=== PATIENT | male | born 1975 | race Caucasian/White ===

== ENCOUNTER → 2018-02-10 14:35 | Outpatient (CLI) | payer OTHER, SELFPAY ==
[2018-02-10 16:06] LABS: Erythrocyte Sedimentation Rate 19 mm/hr (0-15)
[2018-02-10 16:09] LABS: Hematocrit 40.3 % (40-54); Mean Corp Hgb Conc 34.7 g/gl (32-36); Mean Corpuscular Hgb 31.3 pg (27.0-32.0); Platelet Count 220 K/mm3 (150-450); RBC Distribution Width CV 12.3 % (11.6-14.6); RBC Distribution Width SD 40.2 fl (35.1-43.9); Red Blood Count 4.48 M/mm3 (4.6-6.2)
[2018-02-10 16:14] LABS: ALB/GLOB Ratio 0.9 RATIO (0.9-2.4); AST(SGOT) 27 U/L (15-37); Alanine Aminotransfer ALT/SGPT 34 U/L (16-61); Albumin, Serum 3.7 g/dL (3.2-5.0); Alkaline Phosphatase 53 U/L (45-117); Anion Gap 9 (5-15); BUN 11 mg/dL (7-18); BUN/Creat Ratio 12.4 RATIO (10-20); CRP 3.49 mg/L (0.0-3.0); Calcium,Total 8.5 mg/dL (8.5-10.1); Chloride 105 mmol/L (98-107); Creatinine, Serum 0.89 mg/dL (0.70-1.30); EST Glomerular Filtration Rate 101 mL/min (>60); Est Glom Filt Rate - Afr Amer 122 mL/min (>60); Globulin 3.9 g/dL (2.2-4.2); Glucose 97 mg/dL (74-106); Protein, Total 7.6 g/dL (6.4-8.2); Rheumatoid Factor < 10.0 IU/mL (<15); Sodium Level 142 mmol/L (136-145)
[2018-02-10 16:18] LABS: Vitamin D,25 Hydroxy 26.1 ng/mL (29.95-100.01)
[2018-02-10 16:22] LABS: Scan Indicated on CBC? Y/N NO
[2018-02-15 11:45] LABS: CCP IgG Antibodies 8 units (0-19)
[2018-02-15 11:59] LABS: ANTINUCLEAR ANTIBODIES DIRECT Negative (Negative)
== END ==
PROVIDERS: Family Provider Family Medicine; PCP Family Medicine; Visit Provider Family Medicine
DX: M25.50 Pain in unspecified joint (principal)
CPT/HCPCS: 36415; 80053; 82306; 85027; 85652; 86038; 86140; 86200; 86431

== ENCOUNTER 2020-10-02 09:40 | Outpatient (RCR) | payer OTHER, SELFPAY ==
[2016-03-14 10:02] VITALS: BMI 26.6
== END 2020-11-11 23:59 ==
LOC: IMMUN 09:40
PROVIDERS: PCP Family Medicine; Referring Provider Family Medicine; Visit Provider Family Medicine
DX: Z23 Encounter for immunization (principal)
CPT/HCPCS: 0001A; 91300

== ENCOUNTER → 2021-03-20 | Outpatient (CLI) | payer OTHER, SELFPAY | END | disposition home or self-care (01) | PROVIDERS: PCP Family Medicine; Referring Provider Family Medicine; Visit Provider Family Medicine | DX: Z20.822 Contact with and (suspected) exposure to COVID-19 (principal) | CPT/HCPCS: 87635; U0005; U0003 ==

== ENCOUNTER → 2022-04-02 | Outpatient (CLI) | payer OTHER, SELFPAY ==
[2022-04-02 12:14] LABS: Erythrocyte Sedimentation Rate 25 mm/hr (0-20)
[2022-04-02 12:17] LABS: Absolute Lymphocyte Count 1.67 X10^3/uL (0.83-4.51); Absolute Neutrophil Count 3.7 X10^3/uL (2.0-7.7); Basophil# 0.05 X10^3/uL; Basophil% 0.8 % (0-1); Eosinophil# 0.11 X10^3/uL; Eosinophils% 1.8 % (0-5); Hemoglobin 15.9 g/dL (13.0-16.5); Lymphocyte # 1.67 X10^3/ul (0.83-4.51); Lymphocyte % 27.2 % (19-41); Mean Corpuscular Hgb 32.5 pg (27.0-32.0); Mean Corpuscular Volume 87.9 fL (80-94); Mean Platelet Vol. 9.9 fl (6.2-12.0); Monocyte# 0.56 X10^3/uL; Monocyte% 9.1 % (0-10); NRBC Flagged by Analyzer 0 % (0-5); Neutrophil # 3.74 X10^3/uL (2.7-7.7); Neutrophil % 60.9 % (47-70); Platelet Count 259 K/mm3 (150-450); RBC Distribution Width CV 11.8 % (11.6-14.6); RBC Distribution Width SD 37.9 fl (35.1-43.9); Red Blood Count 4.89 M/mm3 (4.6-6.2); White Blood Count 6.1 K/mm3 (4.4-11.0)
[2022-04-02 12:36] LABS: Vitamin D,25 Hydroxy 38.6 ng/mL
[2022-04-02 12:53] LABS: AST(SGOT) 22 U/L (15-37); Alanine Aminotransfer ALT/SGPT 38 U/L (16-61); Albumin, Serum 3.8 g/dL (3.2-5.0); Alkaline Phosphatase 55 U/L (45-117); Anion Gap 4 (5-15); BUN 14 mg/dL (7-18); BUN/Creat Ratio 16.8 RATIO (10-20); CRP < 2.90 mg/L (0.0-3.0); Calcium,Total 8.8 mg/dL (8.5-10.1); Chloride 105 mmol/L (98-107); Creatinine, Serum 0.83 mg/dL (0.70-1.30); EST Glomerular Filtration Rate 107 mL/min (>60); Est Glom Filt Rate - Afr Amer 129 mL/min (>60); Ferritin 164 ng/mL (26-388); GGTP 23 U/L (15-85); Globulin 3.9 g/dL (2.2-4.2); Glucose 94 mg/dL (74-106); Iron 72 ug/dL (65-175); Potassium 4.4 mmol/L (3.5-5.1); Protein, Total 7.7 g/dL (6.4-8.2); Sodium Level 137 mmol/L (136-145); Thyroid Stim Hormone (TSH) 1.09 uIU/mL (0.358-3.74)
== END | disposition home or self-care (01) ==
LOC: MTLAB 10:36
PROVIDERS: PCP Family Medicine; Referring Provider Family Medicine; Visit Provider Family Medicine
DX: M35.2 Behcet's disease (principal); Z78.9 Other specified health status
CPT/HCPCS: 36415; 80053; 82306; 82728; 82977; 83540; 84443; 85025; 85652; 86140

== ENCOUNTER 2024-09-04 08:00 | Outpatient (RCR) | payer OTHER, SELFPAY | END 2024-09-04 19:00 | disposition home or self-care (01) | LOC: PT 08:00 | PROVIDERS: PCP Family Medicine; Referring Provider Family Medicine; Visit Provider Family Medicine | DX: G57.01 Lesion of sciatic nerve, right lower limb (principal) ==

== ENCOUNTER → 2024-10-03 | Outpatient (CLI) | payer OTHER, SELFPAY ==
--- NOTE | 2024-10-03 13:21 | RAD_ITS ---
PROCEDURE: HIP, UNI W/ PELVIS 2-3 VIEWS 10/03/2024 REASON FOR EXAM: PAIN IN L HIP, GLUTE TECHNIQUE: Three views left hip FINDINGS: Bones: No acute fracture. Joints: Normal alignment. Soft tissues: Soft tissues are unremarkable. Other: RAD/HIP, UNI W/ Pelvis 2-3 Views IMPRESSION: NEGATIVE SINGLE VIEW HIP Reading Location: [id number]
== END | disposition home or self-care (01) ==
LOC: MTRAD 13:18
PROVIDERS: PCP Family Medicine; Referring Provider Family Medicine; Visit Provider Family Medicine
DX: M25.552 Pain in left hip (principal)
CPT/HCPCS: 73502

== ENCOUNTER → 2024-11-28 | Outpatient (CLI) | payer OTHER, SELFPAY ==
--- NOTE | 2024-11-28 09:38 | MRI_ITS ---
PROCEDURE: LOWER EXT JOINT ONLY (ROUTINE) 11/28/2024 REASON FOR EXAM: HIP PAIN TECHNIQUE: LOWER EXT JOINT ONLY (ROUTINE) Multiplanar and multisequence images were obtained without IV contrast administration. COMPARISON: COMPARISON : Left hip and pelvis study of 10/03/2024. FINDINGS: Mild degenerative changes are seen of the visualized lower lumbar spine. Bone Marrow: Edema is seen in the medial left iliac bone, predominantly posteriorly and adjacent to the left sacroiliac joint, with mild opposing edema in the adjacent posterior left sacrum. Differential diagnosis includes bone bruising and inflammatory change. No significant joint effusion is evident. No fracture line is appreciated at this time. The right sacroiliac joint is unremarkable in appearance. No other focus of abnormal osseous signal is seen. The hip joints themselves demonstrate no significant abnormality. No joint effusion is seen. No evidence of femoral head osteonecrosis. Within the pelvis, no free fluid is seen. No inguinal or pelvic adenopathy is noted. MRI/Lower Ext Joint Only (Routine) IMPRESSION: Edema in the medial left iliac bone and a portion of the adjacent left sacrum w ith differential diagnosis including bone bruising and inflammatory change. If clinical concern persists, further evaluation with repeat plain film or noncontrasted CT may be considered. Reading Location: [id number] [id number]
== END | disposition home or self-care (01) ==
PROVIDERS: PCP Family Medicine; Referring Provider Family Medicine; Visit Provider Family Medicine
DX: M25.552 Pain in left hip (principal)
CPT/HCPCS: 73721

== ENCOUNTER → 2024-11-30 | Outpatient (CLI) | payer OTHER, SELFPAY ==
[2024-11-30 10:39] LABS: Erythrocyte Sedimentation Rate 23 mm/hr (0-20)
[2024-11-30 10:41] LABS: Absolute Lymphocyte Count 1.59 X10^3/uL (0.83-4.51); Absolute Neutrophil Count 3.7 X10^3/uL (2.0-7.7); Basophil# 0.03 X10^3/uL; Basophil% 0.5 % (0-1); Eosinophil# 0.11 X10^3/uL; Eosinophils% 1.9 % (0-5); Hematocrit 39.6 % (40-54); Hemoglobin 13.5 g/dL (13.0-16.5); Lymphocyte # 1.59 X10^3/ul (0.83-4.51); Lymphocyte % 26.9 % (19-41); Mean Corp Hgb Conc 34.1 g/dL (32-36); Mean Corpuscular Hgb 29.7 pg (27.0-32.0); Mean Corpuscular Volume 87.2 fL (80-94); Mean Platelet Vol. 10.2 fl (6.2-12.0); Monocyte# 0.47 X10^3/uL; NRBC Flagged by Analyzer 0 % (0-5); Neutrophil # 3.68 X10^3/uL (2.7-7.7); Neutrophil % 62.2 % (47-70); Platelet Count 232 K/mm3 (150-450); RBC Distribution Width CV 12.4 % (11.6-14.6); RBC Distribution Width SD 39.6 fl (35.1-43.9); Red Blood Count 4.54 M/mm3 (4.6-6.2); White Blood Count 5.9 K/mm3 (4.4-11.0)
[2024-11-30 10:48] LABS: ALB/GLOB Ratio 1.4 RATIO (0.9-2.4); AST(SGOT) 33 U/L (<=37); Alanine Aminotransfer ALT/SGPT 37 U/L (<=46); Albumin, Serum 4.2 g/dL (3.5-5.0); Alkaline Phosphatase 68 U/L (40-129); Anion Gap 13 (5-15); BUN 16 mg/dL (4-19); BUN/Creat Ratio 20.1 RATIO (10-20); Calcium,Total 9.3 mg/dL (7.6-11.0); Carbon Dioxide 23.6 mmol/L (21.0-32.0); Chloride 104 mmol/L (98-108); Creatinine, Serum 0.78 mg/dL (0.70-1.20); EST Glomerular Filtration Rate 111 (>60); Glucose 174 mg/dL (70-99); Potassium 4.1 mmol/L (3.3-5.1); Protein, Total 7.2 g/dL (5.9-8.4); Sodium Level 140 mmol/L (133-145); Total Bilirubin 0.69 mg/dL (0.00-1.30)
--- OUTSIDE RECORDS SUMMARY | 2024-11-30 11:09 | XMS RPT_ITS | CCD ---
Author Organization [facility] Care Team Providers Care Dynamometer Mechanic Name Role Phone Unavailable Primary Care Provider Unavailabl e DEJOSEPH, REBEKAH CAT Referring Unavailable DEJOSEPH, REBEKAH SHELTON Referring Unavailable DEJOSEPH, REBEKAH SHELTON Referring Unavailable VALENCIA GORDON Attending Unavailable DEJOSEPH, REBEKAH SHELTON Referring Unavailable DEJOSEPH, REBEKAH SHELTON Referring Unavailable DEJOSEPH, REBEKAH SHELTON Attending Unavailable Unavailable Primary Care Provider UnavailISACC Bowen Referring Unavailable ISACC MARIA Attending Unavailable DEJOSEPH, REBEKAH SHELTON Referring Unavailable DEJOSEPH, REBEKAH SHELTON Attending Unavailable PARTH PANDYA Attending Unavailable DEJOSEPH, REBEKAH SHELTON Attending Unavailable DEJOSEPH, REBEKAH SHELTON Attending Unavailable DEJOSEPH, REBEKAH SHELTON Referring Unavailable ELIAN PAVON Attending Unavailable Ranjan Esquivel Primary Care Unavailable Ranjan Esquivel Attending Unavailable Rnajan Esquivel Referring Unavailable Ranjan Esquivel Primary Care Unavailable Ranjan Esquivel Attending Unavailable Ranjan Esquivel Referring Unavailable Ranjan Esquivel Attending Unavailable Ranjan Esquivel Referring Unavailable Ranjan Esquivel Primary Care Unavailable Allergies Allergy Classification Reported Allergen(s) Allergy Type Date of Onset Reaction(s) Facility NSAIDs (2 sources) celecoxib; Translations: [CELECOXIB] Drug Allergy 02-26-2008 [facility] Work Phone: (17 sources) celecoxib; Translations: [CELECOXIB] Drug Allergy 02-26-2008 [facility] Other [facility] (1 source) celecoxib Drug Allergy 03-14-2016 [facility] Rep[facility] Medications Current Medications Medication Drug Class(es) Dates Sig (Normalized) Sig (Original) FLUoxetine 20 mg oral tablet (19 sources) Serotonin Reuptake Inhibitor Start: 09-23-2023 End: 10-24-2024 take 1 tablet by mouth once daily FLUoxetine HCl 20 mg tablet Take 1 tablet by mouth once daily. 90 tablet 3 10/25/2023 10/24/2024 Active Start: 10-27-2010 End: 08-28-2024 take 1 capsule by mouth once daily in the morning FLUoxetine (PROZAC) 20 mg capsule TAKE ONE CAPSULE BY MOUTH EVERY MORNING 90 capsule 08/29/2023 08/28/2024 Active Comment on above: Take 1 capsule by [facility] once daily. MULTIVITAMIN ORAL (9 sources) take 1 tablet by mouth once daily MULTIVITAMIN ORAL Take 1 tablet by mouth once daily. [facility] Performance and Vitality Multipack Active take 1 tablet by mouth once ramses y MULTIVITAMIN ORAL Take 1 tablet by mouth once daily. [facility] Performance and Vitality Multipack 0 Active omeprazole 20 mg delayed release oral tablet (15 sources) Proton Pump Inhibitor Start: 06-06-2023 take 1 tablet by mouth once daily Omeprazole Magnesium (PRILOSEC OTC) 20 mg tablet Take 20 mg by mouth once daily. 06/06/2023 Active Start: 01-28-2010 End: 10-11-2023 omeprazole(PRILOSEC 40 MG CA P) Take one(1) capsule daily. 30 5 01/28/2010 10/11/2023 Discontinued (Course of therapy completed) Comment on above: Take one(1) capsule daily. pantoprazole 40 mg delayed release oral tablet (1 source) Proton Pump Inhibitor Start: 4 End: 5 take 1 tablet by mouth once daily in the morning pantoprazole DR (PROTONIX) 40 mg tablet TAKE ONE TABLET BY MOUTH EVERY MORNING 90 tablet 08/29/2023 08/28/2024 Active rosuvastatin calcium 20 mg oral tablet (5 sources) HMG-CoA Reductase Inhibitor Start: 4 End: 5 take 1 tablet by mouth once daily rosuvastatin (CRESTOR) 20 mg tablet Indications: Agatston coronary artery calcium score between 100 and 199 , Mixed hyperlipidemia Take 1 tablet by mouth once daily. 90 tablet 3 10/25/2023 10/24/2024 Active Completed/Discontinued Medications Medication Drug Class(es) Dates Sig (Normalized) Sig (Original) 12 hr guaiFENesin 1200 mg / pseudoephedrine hydrochloride 120 mg extended release oral tablet (5 sources) alpha-Adrenergic Agonist Start: 06-16-2010 End: 10-11-2023 take 1 tablet by mouth once Pseudoephedrine-G uaifenesin 120-1,200 mg ORAL Tb12 Indications: URI (upper respiratory infection) Take one (1) tablet every twelve (12) hours as directed for sinus cogestion 20 Tab 0 06/16/2010 10/11/2023 Discontinued (Course of therapy completed) Comment on above: Take one (1) tablet every twelve (12) hours as directed for sinus cogestion ibuprofen 800 mg oral tablet (5 sources) Nonsteroidal Anti-inflammatory Drug Start: 06-16-2010 End: 10-11-2023 take 1 tablet by mouth once at mealtime as needed for pain ibuprofen 800 mg ORAL tablet Indications: URI (upper respiratory infection) Take one(1) tablet every eight(8) hours with food as needed for pain. 20 Tab 0 06/16/2010 10/11/2023 Discontinued (Course of therapy completed) Comment on above: Take one(1) tablet e very eight(8) hours with food as needed for pain. polyethylene glycol 3350 654100 mg / potassium chloride 2970 mg / sodium bicarbonate 6740 mg / sodium chloride 5860 mg / sodium sulfate 40703 mg powder for oral solution (5 sources) Osmotic Laxative Start: 10-12-2023 End: 10-14-2023 peg 3350-Electrolytes (GOLYTELY) 236-22.74-6.74 -5.86 gram suspension Indications: Colon cancer screening Take 4,000 mL by mouth one time only for 1 dose. Refer to printed prep instructions from your doctor. 4000 mL 0 10/12/2023 10/14/2023 Problems Active Problems Problem Classification Problem Date Documented Date Episodic/Chronic Anxiety disorders (15 sources) Anxiety disorder; Translations: [Anxiety disorder, unspecified] Onset: 10-21-2009 10-21-2009 Chronic Cardiac dysrhythmias (3 sources) Atrial premature depolarization; Translations: [Supraventricular premature beats] Onset: 03-02-2024 10-25-2023 Chronic Contraceptive and procreative management (20 sources) Patient encounter status; Translations: [Encounter for sterilization] Onset: 07-04-2008 07-04-2008 Episodic Disorders of lipid metabolism (10 sources) Mixed hyperlipidemia; Translations: [Mixed hyperlipidemia] Onset: 03-02-2024 10-25-2023 Chronic Esophageal disorders (15 sources) Gastroesophageal reflux disease; Translations: [Gastro-esophageal reflux disease without esophagitis] Onset: 05-02-2009 05-02-2009 Chronic Occlusion or stenosis of precerebral arteries (1 source) Atherosclerosis of right carotid artery; Translations: [Occlusion and stenosis of right carotid artery] 10-25-2023 Chronic Other liver diseases (1 source) Enzyme level - finding; Translations: [Elevated transaminase measurement] Episodic Other lower respiratory disease (1 source) Pulmonary granuloma; Translations: [Pulmonary fibrosis, unspecified] 10-25-2023 Chronic Other lower respiratory disease (1 source) Nodule of lung; Translations: [Solitary pulmonary nodule] 10-25-2023 Episodic Other non-traumatic joint disorders (2 sources) Pain in left hip; Translations: [Pain in left hip] Onset: 10-09-2024 Episodic Other screening for suspected conditions (not mental disorders or infectious disease) (13 sources) Electrocardiogram abnormal; Translations: [Abnormal electrocardiogram [ECG] [EKG]] Onset: 10-12-2023 10-25-2023 Episodic Other skin disorders (1 source) Inflamed seborrheic keratosis; Translations: [Inflamed seborrheic keratosis] 10-12-2023 Episodic Other skin disorders (1 source) Scar conditions and fibrosis of skin; Translations: [Scar conditions and fibrosis of skin] 10-12-2023 Episodic Past or Other Problems Problem Classification Problem Date Documented Date Episodic/Chronic Coagulation and hemorrhagic disorders (11 sources) Petechiae of skin; Translations: [Spontaneous ecchymoses] Onset: 10-12-2023 10-12-2023 Episodic Fever of unknown origin (11 sources) Disorder characterized by fever; Translations: [Fever, unspecified] Onset: 10-12-2023 10-12-2023 Episodic Immunizations and screening for infectious disease (7 sources) Vaccination needed; Translations: [Encounter for immunization] Onset: 10-12-2023 10-11-2023 Episodic Nonspecific chest pain (14 sources) Chest pain; Translations: [Chest pain, unspecified] Onset: 05-02-2009 Resolved: 10-11-2023 05-02-2009 Episodic Other connective tissue disease (10 sources) Behcet's syndrome; 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] Onset: 04-09-2022 10-12-2023 Episodic Other liver diseases (10 sources) Elevated liver enzymes level; Translations: [Elevation of levels of liver transaminase levels] Onset: 10-12-2023 10-12-2023 Episodic Other skin disorders (2 sources) Inflamed seborrheic keratosis; Translations: [Inflamed seborrheic keratosis] Onset: 10-12-2023 Episodic Other skin disorders (2 sources) Scar conditions and fibrosis of skin; Translations: [Scar condition and fibrosis of skin] Onset: 10-12-2023 Episodic Results Test Name Value Interpretation Reference Range Facility Lower Ext Joint Only (Routin e)on 11-28-2024 Lower Ext Joint Only (Routine) [facility] [address] [place] [address] Lower Ext Joint Only (Routine) MR#: [id number] Acct: [id number] Name: HAKAN UDARTE Rep #: [id number] : 1975 M 49 From: Theo Bermudez PCP: Dr. Ranjan Esquivel MD Status: REG CLI Study: Lower Ext Joint Only (Routine) Date of Exam: 0 11/28/24 Exam# [id number] Ordering Dr: Ranjan Esquivel PROCEDURE: LOWER EXT JOINT ONLY (ROUTINE) 11/28/2024 REASON FOR EXAM: HIP PAIN TECHNIQUE: LOWER EXT JOINT ONLY (ROUTINE) Multiplanar and multisequence images were obtained without IV contrast administration. COMPARISON: COMPARISON : Left hip and pelvis study of 10/03/2024. FINDINGS: Mild degenerative changes are seen of the visualized lower lumbar spine. Bone Marrow: Edema is seen in the medial left iliac bone, predominantly posteriorly and adjacent to the left sacroiliac joint, with mild opposing edema in the adjacent posterior left sacrum. Differential diagnosis includes bone bruising and inflammatory change. No significant joint effusion is evident. No fracture line is appreciated at this time. The right sacroiliac joint is unremarkable in appearance. No other focus of abnormal osseous signal is seen. The hip joints themselves demonstrate no significant abnormality. No joint effusion is seen. No evidence of femoral head osteonecrosis. Within the pelvis, no free fluid is seen. No inguinal or pelvic adenopathy is noted. MRI/Lower Ext Joint Only (Routine) IMPRESSION: Edema in the medial left iliac bone and a portion of the adjacent left sacrum with differential diagnosis including bone bruising and inflammatory change. If clinical concern persists, further evaluation with repeat plain film or noncontrasted CT may be considered. Reading Location: [place] [address] CC: Dr. Ranjan Esquivel MD Match Up Worker: Signed Normal [facility] HIP, UNI W/ Pelvis 2-3 Views on 10-03-2024 HIP, UNI W/ Pelvis 2-3 Views [facility] [address] [place] [id number] HIP, UNI W/ Pelvis 2-3 Views MR#: [id number] Acct: [id number] Name: HAKAN DUARTE Aidan Rep #: [id number] : 1975 M 48 From: Shayan Hope MD PCP: Dr. Ranjan Esquivel MD Status: REG CLI Study: HIP, UNI W/ Pelvis 2-3 Views Date of Exam: Exam# [id number] Ordering Dr: Ranjan Esquivel PROCEDURE: HIP, UNI W/ PELVIS 2-3 VIEWS 10/03/2024 REASON FOR EXAM: PAIN IN L HIP, GLUTE TECHNIQUE: Three views left hip FINDINGS: Bones: No acute fracture. Joints: Normal alignment. Soft tissues: Soft tissues are unremarkable. Other: RAD/HIP, UNI W/ Pelvis 2-3 Views IMPRESSION: NEGATIVE SINGLE VIEW HIP Reading Location: [facility] CC: Dr. Ranjan Esquivel MD Match Up Worker: Signed Normal [facility] ANES POSTPROC EVALon 024 ANES POSTPROC EVAL HNO ID: [id number] Author: ARIANNA HAN MD Service: Anesthesiology Author Type: Anesthesiologist Type: Anesthesia Postprocedure Evaluation Filed: 03/28/2024 12:51 Note Text: POST ANESTHESIA EVALUATION NOTE : 1975 Procedure Summary Date: 03/28/24 Room / Location: [facility] Endoscopy Anesthesia Start: 1145 Anesthesia Stop: 1208 Procedure: COLONOSCOPY SCREENING Diagnosis: Colon cancer screening (Screening for colorectal malignant neoplasm) Scheduled Providers: Rocio Liz MD; Paris Jorge APRN.CRNA; Elian Pavon MD Responsible Provider: Elian Pavon MD Anesthesia Type: MAC ASA Status: 2 Anesthesia Type: MAC Last Vitals Vitals Value Taken Time BP 119/77 03/28/24 1233 Temp 36.3 ?C (97.3 ?F) 03/28/24 1208 HR SpO2 54 03/28/24 1208 Resp 18 03/28/24 1233 SpO2 98 % 03/28/24 1233 Post Anesthesia Patient Status Patient Evaluation: PACU. PACU/ICU Patient Condition: stable. Anticipated Disposition: phase 2 then home. Neurological Status: aware and responsive. Pulmonary Status: breathing comfortably on room air Airway Control: returned to baseline unsupported. Cardiovascular Status: stable. Pain Management: clinically adequate - multimodal analgesia pain management approach Postoperative Hydration: acceptable. Intraoperative Events: no significant anesthesia events Post Operative Nausea/Vomiting Status: no significant post operative nausea or vomiting Recommendation: continue current plan of care. Anesthesia Observations No Documentation SIGNATURE: Arianna Han MD PATIENT NAME: Hakan Duarte DATE: March 28, 2024 TIME: 12:50 PM CSN: [id number] Normal [facility] ANES PRE-OPon 03-28-2024 ANES PRE-OP HNO ID: [id number] Author: ELIAN PAVON MD Service: ? Author Type: Anesthesiologist Type: Anesthesia Preprocedure Evaluation Filed: 03/28/2024 11:04 Note Text: ANESTHESIOLOGY DAY OF SURGERY NOTE : 1975 Procedure Information Date/Time: 03/28/24 1245 Scheduled providers: Rocio Liz MD; Paris Jorge APRN.CRNA; Elian Pavon MD Procedure: COLONOSCOPY SCREENING Location: [facility] Endoscopy Estimated body mass index is 24.41 kg/m? as calculated from the following: Height as of this encounter: 182.9 cm (6'). Weight as of this encounter: 81.6 kg (180 lb). Most recent hematocrit and potassium results: Hematocrit 43.4 10/12/2023 Potassium 4.6 10/12/2023 Relevant Problems CARDIO (+) Behcet's disease (HCC) GI (+) Gastroesophageal reflux disease I - PHYSICAL EVALUATION AIRWAY Patient intubated: No. Tracheostomy tube not present Mallampati: II. TM distance: >3 FB. Neck ROM: full ROM without neurological symptoms. Mouth opening: adequate. Short neck: no. Thick neck: no Payne present: no Microretrognathia/Micronagt hia/Recessed Chin: Yes DENTAL Dental findings: teeth intact. Additional exam findings: yes. CARDIOVASCULAR Rhythm: regular Rate: normal PULMONARY Breath sounds clear to auscultation. II - ANESTHESIA PLAN ASA Score: 2 Anesthetic Plan: MAC The patient is not a current smoker. NPO Status: adequate Beta Jorge Administration of chronic beta jorge medication planned. Monitoring Plan Monitoring plan: standard ASA. Post Procedure Analgesic Plan Postoperative analgesic plan: multimodal analgesia. Informed Consent Anesthetic risks, benefits, alternatives, personnel and consent discussed: yes. Patient / Responsible Democrat agrees to proceed: yes Patient / Surrogate agrees to blood products: Yes DNR status not reviewed with patient and/or family prior to surgery. Significant changes in the patient condition since the History and Physical, not otherwise documented in primary service progress note: no. Potential Anesthesia issues that may suggest increased risk of complications or contraindication to planned procedure: none. Vitals Value Taken Time BP 119/69 03/28/24 1030 Pulse Resp 16 03/28/24 1030 Temp 36.1 ?C (97 ?F) 03/28/24 1030 SpO2 100 % 03/28/24 1030 Outpatient Medications as of 03/28/2024 Medication Sig FLUoxetine HCl 20 mg tablet Take 1 tablet by mouth once daily. rosuvastatin (CRESTOR) 20 mg tablet Take 1 tablet by mouth once daily. Omeprazole Magnesium (PRILOSEC OTC) 20 mg tablet Take 20 mg by mouth once daily. pantoprazole DR (PROTONIX) 40 mg tablet TAKE ONE TABLET BY MOUTH EVERY MORNING FLUoxetine (PROZAC) 20 mg capsule TAKE ONE CAPSULE BY MOUTH EVERY MORNING MULTIVITAMIN ORAL Take 1 tablet by mouth once daily. [facility] Performance and Vitality Multipack Facility-Administered Medications as of 03/28/2024 Medication Dose Route Frequency lidocaine (PF) 10 mg/mL (1 %) 1-2 mg injection (XYLOCAINE) 0.1-0.2 mL INTRADERMAL PRN lactated ringers iv infusion 30 mL/hr INTRAVENOUS CONTINUOUS I have interviewed and examined the patient. I have reviewed the medical record and/or the pre-anesthesia evaluation, pertinent labs, and test results. This contains updated information obtained within 48 hours of Surgery/Procedure. SIGNATURE: Elian Pavon MD PATIENT NAME: Hakan Duarte DATE: March 28, 2024 TIME: 11:04 AM CSN: [id number] Normal [facility] Colonoscopyon 03-28-2024 Colonoscopy [facility] Gastrointestinal Endoscopy Patient Name: Hakan Duarte Procedure Date: 03/28/2024 11:37 AM Date of : 1975 Admit Type: Outpatient Age: 48 Room: [facility] Gender: Male Note Status: Finalized Attending MD: Rocio Liz MD, [id number] Procedure: Colonoscopy Indications: Screening for colorectal malignant neoplasm Providers: Rocio Liz MD Patient Profile: Refer to note in patient chart for documentation of history and physical. Last Colonoscopy: none. The patient's first colonoscopy is today. Referring Physician: Rebekah Johnston (Referring MD) Medicines: See the Anesthesia note for documentation of the administered medications Complications: No immediate complications. Requesting Provider: Procedure: Pre-Anesthesia Assessment: - Monitored anesthesia care under the supervision of a FLIGHT SECURITY SPECIALIST was determined to be medically necessary for this procedure based on review of the patient's medical history, medications, and prior anesthesia history. After I obtained informed consent, the scope was passed under direct vision. Throughout the procedure, the patient's blood pressure, pulse, and oxygen saturations were monitored continuously. The Colonoscope was introduced through the anus and advanced to the cecum, identified by the appendiceal orifice, IC valve and transillumination. The colonoscopy was performed without difficulty. The patient tolerated the procedure well. The quality of the bowel preparation was adequate to identify polyps greater than 15 mm in size. The appendiceal orifice and the rectum were photographed. Scope Withdrawal Time: 0 hours 6 minutes 20 seconds Moderate Sedation: MAC anesthesia was administered by the anesthesia team. Total Procedure Duration: 0 hours 14 minutes 42 seconds Findings: The perianal and digital rectal examinations were normal. Non-bleeding internal hemorrhoids were found. Poor colon cleansing preparation Impression: - Non-bleeding internal hemorrhoids. - No specimens collected. Recommendation: - Repeat colonoscopy in 2-3 years for surveillance due to poor colon cleansing preparation. - Return to primary care physician PRN. - Patient has a contact number available for emergencies. The signs and symptoms of potential delayed complications were discussed with the patient. Return to normal activities tomorrow. Written discharge instructions were provided to the patient. - Continue present medications. - Resume previous diet. Procedure Code(s): --- Professional --- G0121, Colorectal cancer screening; colonoscopy on individual not meeting criteria for high risk Diagnosis Code(s): --- Professional --- K64.8, Other hemorrhoids Z12.11, Encounter for screening for malignant neoplasm of colon CPT copyright 2020 [employer]. All rights reserved. The codes documented in this report are preliminary and upon brand mgr review may be revised to meet current compliance requirements. Attending Participation: I personally performed the entire procedure. Scope In: 11:47:51 AM Scope Out: 12:02:33 PM MD Rocio East MD 03/28/2024 12:07:08 PM This report has been signed electronically by Rocio Liz MD Number of Addenda: 0 Note Initiated On: 03/28/2024 11:37 AM Estimated Blood Loss: Estimated blood loss: none. Normal [facility] Colonoscopy Study observatio non 03-28-2024 [facility] Gastrointestinal Endoscopy Patient Name: Hakan Duarte Procedure Date: 03/28/2024 11:37 AM Date of : 1975 Admit Type: Outpatient Age: 48 Room: [facility] Gender: Male Note Status: Finalized Attending MD: Rocio Liz MD, [id number] Procedure: Colonoscopy Indications: Screening for colorectal malignant neoplasm Providers: Rocio Liz MD Patient Profile: Refer to note in patient chart for documentation of history and physical. Last Colonoscopy: none. The patient's first colonoscopy is today. Referring Physician: Rebekah Johnston (Referring MD) Medicines: See the Anesthesia note for documentation of the administered medications Complications: No immediate complications. Requesting Provider: Procedure: Pre-Anesthesia Assessment: - Monitored anesthesia care under the supervision of a FLIGHT SECURITY SPECIALIST was determined to be medically necessary for this procedure based on review of the patient's medical history, medications, and prior anesthesia history. After I obtained informed consent, the scope was passed under direct vision. Throughout the procedure, the patient's blood pressure, pulse, and oxygen saturations were monitored continuously. The Colonoscope was introduced through the anus and advanced to the cecum, identified by the appendiceal orifice, IC valve and transillumination. The colonoscopy was performed without difficulty. The patient tolerated the procedure well. The quality of the bowel preparation was adequate to identify polyps greater than 15 mm in size. The appendiceal orifice and the rectum were photographed. Scope Withdrawal Time: 0 hours 6 minutes 20 seconds Moderate Sedation: MAC anesthesia was administered by the anesthesia team. Total Procedure Duration: 0 hours 14 minutes 42 seconds Findings: The perianal and digital rectal examinations were normal. Non-bleeding internal hemorrhoids were found. Poor colon cleansing preparation Impression: - Non-bleeding internal hemorrhoids. - No specimens collected. Recommendation: - Repeat colonoscopy in 2-3 years for surveillance due to poor colon cleansing preparation. - Return to primary care physician PRN. - Patient has a contact number available for emergencies. The signs and symptoms of potential delayed complications were discussed with the patient. Return to normal activities tomorrow. Written discharge instructions were provided to the patient. - Continue present medications. - Resume previous diet. Procedure Code(s): --- Professional --- G0121, Colorectal cancer screening; colonoscopy on individual not meeting criteria for high risk Diagnosis Code(s): --- Professional --- K64.8, Other hemorrhoids Z12.11, Encounter for screening for malignant neoplasm of colon CPT copyright 2020 [employer]. All rights reserved. The codes documented in this report are preliminary and upon brand mgr review may be revised to meet current compliance requirements. Attending Participation: I personally performed the entire procedure. Scope In: 11:47:51 AM Scope Out: 12:02:33 PM MD Rocio East MD 03/28/2024 12:07:08 PM This report has been signed electronically by Rocio Liz MD Number of Addenda: 0 Note Initiated On: 03/28/2024 11:37 AM Estimated Blood Loss: Estimated blood loss: none. PROVATION [facility] Radiology Study observation (narrative) [facility] HISTORY PHYSICALon HISTORY PHYSICAL HNO ID: [id number] Author: ROCIO LIZ MD Service: General Surgery Author Type: Physician Type: H&P Filed: 03/28/2024 11:18 Note Text: HISTORY AND PHYSICAL Hakan Duarte 1975 REFERRING PHYSICIAN: Rebekah Johnston MD CHIEF COMPLAINT: No chief complaint on file. HPI: The patient is a 48 year old male here for colonoscopy. 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 rosuvastatin (CRESTOR) 20 mg tablet Take 1 tablet by mouth once daily. Omeprazole Magnesium (PRILOSEC OTC) 20 mg tablet Take 20 mg by mouth once daily. pantoprazole DR (PROTONIX) 40 mg tablet TAKE ONE TABLET BY MOUTH EVERY MORNING FLUoxetine (PROZAC) 20 mg capsule TAKE ONE CAPSULE BY MOUTH EVERY MORNING MULTIVITAMIN ORAL Take 1 tablet by mouth once daily. [employer] Performance and Vitality Multipack Current Facility-Administered Medications Medication Dose Route Frequency lidocaine (PF) 10 mg/mL (1 %) 1-2 mg injection (XYLOCAINE) 0.1-0.2 mL INTRADERMAL PRN lactated ringers iv infusion 30 mL/hr INTRAVENOUS CONTINUOUS ALLERGIES: Celebrex [Celecoxib] PERSONAL HISTORY: Social History Tobacco Use Smoking status: Never Smokeless tobacco: Never Vaping Use Vaping status: Never Used Substance Use Topics Alcohol use: Not Currently Comment: alcohol rehab 08/2023 Drug use: No FAMILY HISTORY: FAMILY HISTORY Problem Relation Age of Onset Arthritis Mother Rheumatoid Thyroid Mother Lipids Father Diabetes Father Alcohol abuse Father Alcohol abuse Brother No Known Problems Brother No Known Problems Maternal Grandmother Sudden Cardiac Maternal Grandfather at age 72 Diabetes Paternal Grandmother at age 85 Colon Cancer Paternal Grandfather at age 72 other (reactive airway) Son No Known Problems Son REVIEW OF SYSTEMS: Denies fevers Denies chest pain Denies shortness of breath PHYSICAL EXAMINATION: General: The patient is 48 year old male, well nourished, well hydrated in no acute distress. The patient is oriented to time, place, and person. VITALS: Blood pressure 119/69, temperature 36.1 ?C (97 ?F), temperature source Temporal Artery, resp. rate 16, height 182.9 cm (6'), weight 81.6 kg (180 lb), SpO2 100%. Body mass index is 24.41 kg/m?. Head - Normocephalic. EOM intact with sclera clear. Mouth with mucus membranes moist. Neck - supple with no jugular venous distention noted. Trachea is midline. Lungs - normal breath sounds, normal respiratory motion, no adventitial sounds noted. Heart - normal heart sounds. Regular rate. Abdomen - soft and benign. Extremities - no pitting edema noted. Skin - Normal skin integrity. Neurological - non focal Psych - calm and appropriate Impression: screening for colon cancer, Discussion/Plan/Recommendat ions: I have discussed the above with the patient. I have offered colonoscopy , possible biopsies I have explained the procedure to the patient. I have counseled the patient as to the risks of the procedure, including but not limited to: infection, bleeding, injury to any intrabdominal organs such as liver/spleen, perforation of the GI tract, inability to complete the procedure, complications of anesthesia, etc. - the patient understands. The patient wishes to proceed. I have answered all questions to the patient?s satisfaction and the patient has no further questions. __ Rocio Liz MD [facility] Office Visit (CARD P ) HAKAN DUARTE ([id number]) 1975 [place] [facility] Date Time Provider Department 03/02/24 9:45 AM ISACC MARIA During your visit today, we recorded the following information about you: Pulse Blood pressure Weight Height 54/minute 117/73 82.8 kg 1.829 m Isacc Maria MD 03/02/2024 10:34 AM Signed Heart, Vascular, and Thoracic [place] Debbie Bright Department of Cardiovascular Medicine SECTION OF PREVENTIVE CARDIOLOGY Hakan Duarte 03/02/2024 CHIEF COMPLAINT: Patient presents with: CARD New Patient Consult HISTORY OF PRESENT CARDIOVASCULAR ILLNESS: Hakan Duarte is a 48 year old male with a PMH significant for coronary artery calcifications (137 AU, 10/12/23, LM score zero), carotid plaque without stenosis, PACs. Presents for evaluation of cardiac issues. He underwent exercutive health screening this summer, October 12, 2023. Results showed: -CAC score 137 AU, left main score zero. LA dilated appearing. -Carotid plaque without stenosis -ECG exercise stress testing: ~12 minutes, 10.5 METs, no symptoms, no ST segment changes. Reported PACs -LDL-C 145 mg/dL, non-HDL-C 166 mg/dL, apoB 128 mg/dL, Lp (a) and hs CRP normal, HgBA1c normal Rosuvastatin 20 Rx'd 10/12/23 after CAC score returned He is here for further cardiac opinion on the above. He is running a marathon tomorrow. Trains 6 days a week without symptoms. Feels well. Works for [employer]. Eats beef. Upon cardiovascular review of systems the patient denies chest pain, SOB, palpitations, syncope, light-headedness, PND , orthopnea, intermittent claudication. CARDIAC RISK FACTORS: N/A Exercise: More than 5 times per week Running 3-5 miles a day at least Plus body weight exercises Maternal grandfather - [place], possibly arounds 70s STATIN INTOLERANCE: USE OF PCSK9 INHIBITORS: CARDIOVASCULAR DISEASE HISTORY: Calcium Score >100-399: Yes 10/12/23 Valve Disease: None Arrythmias: None HEART FAILURE/CARDIOMYOPATHY: None RELATED DISEASE HISTORY: History question Answer Diagnosis Date Comment Psychiatric Disease : Panic disorder without agoraphobia 2009 CURRENT MEDS: Current Outpatient Medications Medication Sig FLUoxetine HCl 20 mg tablet Take 1 tablet by mouth once daily. rosuvastatin (CRESTOR) 20 mg tablet Take 1 tablet by mouth once daily. MULTIVITAMIN ORAL Take 1 tablet by mouth once daily. [employer] Performance and Vitality Multipack Omeprazole Magnesium (PRILOSEC OTC) 20 mg tablet Take 20 mg by mouth once daily. No current facility-administered medications for this visit. ALLERGIES: ALLERGIES Allergen Reactions Celebrex [Celecoxib] Rash FAMILY AND SOCIAL HISTORY: Lifestyle Alcohol Use: Not Currently (alcohol rehab 08/2023) REVIEW OF SYSTEMS: CONSTITUTIONAL: No Changes. RESPIRATORY: See HPI CARDIOVASCULAR: See HPI Otherwise not reviewed PHYSICAL EXAMINATION: Vital Signs and General Appearance BP 117/73 (BP Site: Right Arm, BP Position: Sitting, BP Cuff Size: Regular Adult) Pulse (!) 54 Ht 182.9 cm (6') Wt 82.8 kg (182 lb 9.6 oz) BMI 24.77 kg/m? Average Blood Pressure: 117/73 BMI 24.76 kg/(m2) Well developed, well nourished, alert, active 48 year old male in no apparent distress. Eyes: Normal, PERRLA Skin: Xanthomas - none Neck: Normal, supple with full range of motion Lungs: Clear to auscultation and percussion Lower Extremities: Normal exam of the extremities Neurological:Oriented to person, place and time and No focal motor or sensory deficits Pulses: Carotid: Left: 2+, Right: 2+, Bruit: No Posterior Tibial:Right 2+, Posterior Tibial:Left 2+, Heart Sounds: S1: Normal S2: Normal S3: Absent S4: Absent Murmurs: Systolic Murmur Present: No Diastolic Murmur Present: No CLINICAL TESTING RESULTS: I have personally reviewed the following: Most recent ECG Tracing: which I independently visualized. CAC score 10/12/2023: mpression IMPRESSION: - Total Coronary Calcium Score (CAC) = 137 AU. -Mild dilation of the left atrium. Match Up Worker: ARIA Transcribe Date/Time: Oct 12 2023 1:43P Calcium Score (Agatston Units): LM: 0 AU LAD: 132 AU LCx: 5 AU RCA: 0 AU Other: 0 AU Total: 137 AU ECG treadmill stress test 10/12/2023: tress Observations: Resting HR: 62 bpm Peak HR: 157 bpm (90% MPHR) Resting BP: 126 / 90 mmHg Peak BP: 154 / 84 mmHg Total exercise time: 12 minutes 0 seconds METS achieved: 10.5 Chronotropic response index (CRI): 0.85 Heart rate recovery (HRR): 37 bpm Rate Pressure Product (RPP): 44613 Hunter Treadmill Score: 12.0 Stress Exercise Observations: Reason for test termination: general fatigue, Symptoms during test: No symptoms provoked during stress, Heart rate response: Adequate heart rate response, Normal CRI (>0.8 Not on B Jorge) and N (more content not included)... Normal [facility] ECG COMPLETEon 03-02-2024 ECG COMPLETE Ventricular Rate : 5 4 BPM Atrial Rate : 54 BPM P-R Interval : 140 ms QRS Duration : 102 ms Q-T Interval : 452 ms QTC Calculation(Bazett) : 428 ms Calculated P Thompson : -29 degrees Calculated R Thompson : 34 degrees Calculated T Thompson : 41 degrees SINUS BRADYCARDIA OTHERWISE NORMAL ECG Confirmed by MD DHILLON TAMANNA ([id number]) on 03/09/2024 3:03:21 PM NAME : HAKAN DUARTE PID : [id number] : 1975 Gender : Male Race : ORD : [id number] Procedure Date : Mar 02 2024 09:40:30 Edit Date : Mar 09 2024 15:03:22 Diagnosis: SINUS BRADYCARDIA OTHERWISE NORMAL ECG Confirmed by MD DHILLON TAMANNA ([id number]) on 03/09/2024 3:03:21 PM Test Reason : Location : 314 : J14 Overread By : MD DHILLON TAMANNA Edited By : MD DHILLON TAMANNA Referred By : ISACC MARIA Acquired by : ANDERS HOOVER [facility] Krystyna 11-21-2023 JUAN [place]ERT[place] Telephone (Xinrong) HAKAN DUARTE ([id number]) 1975 M Date Time Provider Department 11/21/23 PARTH PANDYA During your visit today, we recorded the following information about you: Pennie Martinez 11/21/2023 12:[address] Pandya colonoscopy scheduled on 11-30-2023 will need to be rescheduled in a hospital setting due to his new Cardiac findings and his Bechet's disease. Can you please reschedule in [place]? Thank you Brittany Archuleta 11/22/2023 12:00 PM Signed Contacted patient in regards to message below. Patient scheduled in [place] after heart appointments. Brittany Ram Director Facilities Maintenance Allergies As of Date: 11/21/2023 Noted Allergy Reaction CELEBREX (CELECOXIB) 02/26/2008 2 - Rash Date Reviewed: 10/25/2023 Reviewed by: Rebekah Johnston MD - Fully Assessed Reason for Visit: Outpatient Colonoscopy [482] Prescriptions as of 11/22/2023 - FLUoxetine HCl 20 mg tablet Take 1 tablet by mouth once daily. - rosuvastatin (CRESTOR) 20 mg tablet Take 1 tablet by mouth once daily. - MULTIVITAMIN ORAL Take 1 tablet by mouth once daily. [employer] Performance and Vitality Multipack - Omeprazole Magnesium (PRILOSEC OTC) 20 mg tablet Take 20 mg by mouth once daily. 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 Elevation of levels of liver transaminase level*10/12/2023 Febrile illness [R50.9] 10/12/2023 Petechial rash [R23.3] 10/12/2023 Encounter Status:Closed by PENNIE MARTINEZ on 11/21/23 Normal [facility] 25(OH)D3 SerPl-mCkvngon 2023 25-hydroxyvitamin D3 [Mass/Vol] 55.5 ng/mL Normal 31.0-80.0 [facility] Comment on above: Order Comment: Speci men Type: BLOOD SPECIMENOrdering Facility: [facility] Address: [address] [place] [address] Result Comment: Clas sification of 25 OH Vitamin D status: Deficiency/Insufficiency: < or = 30 ng/ml. Sufficiency/Optimal Levels: 31-80 ng/mL Toxicity: > 100 ng/mL. Test performed by chemiluminescent immunoassay. Performed By: #### 1 989-3 ####[facility] LABCLIA [id number] [place] [address] [place] Apo B SerPl-mCncon Apolipoprotein B [Mass/Vol] 128 mg/dL High <90 [facility] Comment on above: Order Comment: Speci men Type: BLOOD SPECIMENOrdering Facility: [facility] Address: [address] [place] [address] Result Comment: Mode rate Risk: 90-119 mg/dL High Risk: >119 mg/dL Performed By: #### 1 884-6, 79473-0 ####[facility] LABCLIA [id number] [place] [address] [place] CBC W Auto Differential pane l (Bld)on 10-12-2023 Basophils (Bld) [#/Vol] 0.03 10*3/uL Normal <0.11 [facility] Comment on above: Order Comment: Speci men Type: BLOOD SPECIMENOrdering Facility: [facility] Address: [address] [place] [address] Performed By: #### 5 7021-8 ####[facility] LABCLIA [id number] [place] [address] [place] Basophils/100 WBC (Bld) 0.5 % Normal [facility] Comment on above: Order Comment: Speci men Type: BLOOD SPECIMENOrdering Facility: [facility] Address: [address] [place] [address] Performed By: #### 5 7021-8 ####[facility] LABCLIA [id number] [place] [address] [place] Differential cell count method Nom (Bld) Auto Normal [facility] Comment on above: Order Comment: Speci men Type: BLOOD SPECIMENOrdering Facility: [facility] Address: [address] [place] [address] Performed By: #### 5 7021-8 ####[facility] LABCLIA [id number] [place] [address] [place] Eosinophils (Bld) [#/Vol] 0.14 10*3/uL Normal <0.46 [facility] Comment on above: Order Comment: Speci men Type: BLOOD SPECIMENOrdering Facility: [facility] Address: [address] [place] [address] Performed By: #### 5 7021-8 ####[facility] LABIA [id number] [place] [address] [place] Eosinophils/100 WBC (Bld) 2.2 % Normal [facility] Comment on above: Order Comment: Speci men Type: BLOOD SPECIMENOrdering Facility: [facility] Address: [address] [place] [address] Performed By: #### 5 7021-8 ####[facility] LABIA [id number] [place] [address] [place] Erythrocyte distribution width (RBC) [Ratio] 12.4 % Normal 11.5-15.0 [facility] Comment on above: Order Comment: Speci men Type: BLOOD SPECIMENOrdering Facility: [facility] Address: [address] [place] [address] Performed By: #### 5 7021-8 ####[facility] LABCLIA [id number] [place] [address] [place] Hematocrit (Bld) [Volume fraction] 43.4 % Normal 39.0-51.0 [facility] Comment on above: Order Comment: Speci men Type: BLOOD SPECIMENOrdering Facility: [facility] Address: [address] [place] [address] Performed By: #### 5 7021-8 ####[facility] LABCLIA [id number] [place] [address] [place] Hemoglobin (Bld) [Mass/Vol] 14.3 g/dL Normal 13.0-17.0 [facility] Comment on above: Order Comment: Speci men Type: BLOOD SPECIMENOrdering Facility: [facility] Address: [address] [place] [address] Performed By: #### 5 7021-8 ####[facility] LABCLIA [id number] [place] [address] [place] Immature granulocytes (Bld) [#/Vol] 10*3/uL Normal <0.10 [facility] Comment on above: Order Comment: Speci men Type: BLOOD SPECIMENOrdering Facility: [facility] Address: [address] [place] [address] Performed By: #### 5 7021-8 ####[facility] LABCLIA [id number] [place] [address] [place] Immature granulocytes/100 WBC (Bld) 0.3 % Normal [facility] Comment on above: Order Comment: Speci men Type: BLOOD SPECIMENOrdering Facility: [facility] Address: [address] [place] [address] Performed By: #### 5 7021-8 ####[facility] LABCLIA [id number] [place] [address] [place] Lymphocytes (Bld) [#/Vol] 1.70 10*3/uL Normal 1.00-4.00 [facility] Comment on above: Order Comment: Speci men Type: BLOOD SPECIMENOrdering Facility: [facility] Address: [address] [place] [address] Performed By: #### 5 7021-8 ####[facility] LABCLIA [id number] [place] [address] [place] Lymphocytes/100 WBC (Bld) 27.2 % Normal [facility] Comment on above: Order Comment: Speci men Type: BLOOD SPECIMENOrdering Facility: [facility] Address: [address] [place] [address] Performed By: #### 5 7021-8 ####[facility] LABIA [id number] [place] [address] [place] MCH (RBC) [Entitic mass] 30.6 pg Normal 26.0-34.0 [facility] Comment on above: Order Comment: Speci men Type: BLOOD SPECIMENOrdering Facility: [facility] Address: [address] [place] [address] Performed By: #### 5 7021-8 ####[facility] LABIA [id number] [place] [address] [place] MCHC (RBC) [Mass/Vol] 32.9 g/dL Normal 30.5-36.0 [facility] Comment on above: Order Comment: Speci men Type: BLOOD SPECIMENOrdering Facility: [facility] Address: [address] [place] [address] Performed By: #### 5 7021-8 ####[facility] LABIA [id number] [place] [address] [place] MCV (RBC) [Entitic vol] 92.7 fL Normal 80.0-100.0 [facility] Comment on above: Order Comment: Speci men Type: BLOOD SPECIMENOrdering Facility: [facility] Address: [address] [place] [address] Performed By: #### 5 7021-8 ####[facility] LABCLIA [id number] [place] [address] [place] Monocytes (Bld) [#/Vol] 0.59 10*3/uL Normal <0.87 [facility] Comment on above: Order Comment: Speci men Type: BLOOD SPECIMENOrdering Facility: [facility] Address: [address] [place] [address] Performed By: #### 5 7021-8 ####[facility] LABCLIA [id number] [place] [address] [place] Monocytes/100 WBC (Bld) 9.5 % Normal [facility] Comment on above: Order Comment: Speci men Type: BLOOD SPECIMENOrdering Facility: [facility] Address: [address] [place] [address] Performed By: #### 5 7021-8 ####[facility] LABCLIA [id number] [place] [address] [place] Neutrophils (Bld) [#/Vol] 3.76 10*3/uL Normal 1.45-7.50 [facility] Comment on above: Order Comment: Speci men Type: BLOOD SPECIMENOrdering Facility: [facility] Address: [address] [place] [address] Performed By: #### 5 7021-8 ####[facility] LABCLIA [id number] [place] [address] [place] Neutrophils/100 WBC (Bld) 60.3 % Normal [facility] Comment on above: Order Comment: Speci men Type: BLOOD SPECIMENOrdering Facility: [facility] Address: [address] [place] [address] Performed By: #### 5 7021-8 ####[facility] LABCLIA [id number] [place] [id number] [place] Nucleated RBC (Bld) [#/Vol] 10*3/uL Normal <0.01 [facility] Comment on above: Order Comment: Speci men Type: BLOOD SPECIMENOrdering Facility: [facility] Address: [address] [place] [address] Performed By: #### 5 7021-8 ####[facility] LABCLIA [id number] [place] [address] [place] Nucleated RBC/100 WBC (Bld) [Ratio] 0.0 /100 WBC Normal [facility] Comment on above: Order Comment: Speci men Type: BLOOD SPECIMENOrdering Facility: [facility] Address: [address] [place] [address] Performed By: #### 5 7021-8 ####[facility] LABCLIA [id number] [place] [address] [place] Platelet mean volume (Bld) [Entitic vol] 10.1 fL Normal 9.0-12.7 [facility] Comment on above: Order Comment: Speci men Type: BLOOD SPECIMENOrdering Facility: [facility] Address: [address] [place] [address] Performed By: #### 5 7021-8 ####[facility] LABIA [id number] [place] [address] [place] Platelets (Bld) [#/Vol] 260 10*3/uL Normal 150-400 [facility] Comment on above: Order Comment: Speci men Type: BLOOD SPECIMENOrdering Facility: [facility] Address: [address] [place] [address] Performed By: #### 5 7021-8 ####[facility] LABIA [id number] [place] [address] [place] RBC (Bld) [#/Vol] 4.68 10*6/uL Normal 4.20-6.00 [facility] Comment on above: Order Comment: Speci men Type: BLOOD SPECIMENOrdering Facility: [facility] Address: [address] [place] [address] Performed By: #### 5 7021-8 ####[facility] LABCLIA [id number] [place] [address] [place] WBC (Bld) [#/Vol] 6.24 10*3/uL Normal 3.70-11.00 [facility] Comment on above: Order Comment: Speci men Type: BLOOD SPECIMENOrdering Facility: [facility] Address: [address] [place] [address] Performed By: #### 5 7021-8 ####[facility] LABCLIA [id number] [id number] [id number] [facility] CNOVon 10-12-2023 CNOV Office Visit (EXEPMN ) HAKAN DUARTE ([id number]) 1975 M Date Time Provider Department 10/12/23 12:00 PM 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 Upon completion of the fitness evaluation, this information has been customized to each individual in order for the evaluated individual to understand and utilize the major components of fitness, as well as the proper guidelines for exercising in a safe and effective manner. Each program is compiled as specified to individual needs and health goals. Patient Name: Hakan Duarte Date: October 12, 2023 CC Number: [id number] [employer] Hours Worked/ wk: 40-60 Travel (%): 30 Health Related Goals: Run full marathon this Fall ([place]) Fitness History: Cardio 5-7x per week; resistance training 2x per week; stretching with cardio 5-7x per week Health Limitations: 1. Recommend a healthy diet, including a calcium intake of approximately 1200 mg per day from food with supplementation as needed to achieve this goal and 1/2 of your body weight in ounces of non alcoholic, non caffeinated liquid/day. 2. Recommend > 150 minutes a week of exercise. 3. Colorectal cancer screening with colonoscopy recommended and orders placed. 4. Risks/benefits of prostate cancer screening discussed, and screening PSA normal. 5. Ultrasound screening for AAA is negative. 6. Agree with elimination of alcohol. 7. Recommend Influenza vaccine and booster for Covid-19 in the fall and consider Hepatis B Vaccination. 8. Tdap immunization with Adacel given today. 9. HCV screening test for low risk patient and screening for HIV without presence of risk factors are both negative. 10. Abnormal finding on EKG with multifocal ectopic atrial beats seen when lying down. This is an abnormality in the electrical system not the plumbing. 11. Carotid artery plaque, right defines the presence of peripheral vascular disease, suggest dedicated carotid artery ultrasound at next executive exam (1-2 years). 12. Agatston coronary artery calcium score of 137 AU defines the presence of coronary artery disease, which changes goals for LDL to < 70. 13. Mixed hyperlipidemia and dyslipidemia (high LDL; low HDL). Start rosuvastatin (Crestor) 20 mg, prescription enclosed. 14. Referral to cardiology, for follow up of atrial arrhythmia when lying down, which shouldn't have anything to do with plaque in light of negative stress test. 15. Continue healthy diet and regular exercise. Repeat fasting Lipids in 3 months, sooner should any other issues arise. 16. Cardiac risk assessment includes biochemical measures of lipids and inflammation, as well as testing of the electrical system with EKGs and looking at the coronary arteries with CT calcium scoring and assessment of cardiac function with stress testing. We can combine these test results to calculate the risk for a cardiac event in the coming decade using the RAMIREZ Risk Calculator. We use this to guide the use of medication to mitigate risk. Your RAMIREZ Risk Score is 9.83 % if we count your grandfather's sudden cardiac as plus family history, usually we look at first degree relatives, mom, dad, siblings, children, and if we say no family history this is 7.21. Orthopedic Limitations/ Chronic Pain: low back tightness Current Activity: Type of exercise: Frequency (week) Duration (min) Mode: Intensity: Notes: Cardio: 5-7 30-60 Running Moderate ~30 miles per week Resistance: 2 45 Calisthenics Moderate Full Body Flexibility: 5-7 2-5 Static Stretching Light Fitness Testing: See attached results for comparison of standards for age and gender. General Machine Operator Strength: Right hand: 50 kilograms Left hand: 45 kilograms *Ranking: Below Average * Based on standardized ACS guidelines for age and gender. Sit and Reach Score: 16 inches *Ranking: Good * Based on standardized ACS guidelines for age and gender. General Flexibility: Body Part Right Left Body Part Right Left Hamstrings: 2 2 Quadriceps: 2 2 Gastroc/ Soleus: 2 2 Shoulder IR: 2 2 Hip Internal Rot. 2 2 Shoulder ER: 2 2 Hip External Rot. 2 2 Neck Flex/Ext: 2/2 Straight Leg Raise 2 2 Neck Rot.: 2 Lower Back: 2 Neck Sidebend: 2 1= Excellent 2=Normal 3=Below Average 4=Poor Balance: Normal Squat Test: Normal Exercise Recommendations: Type of exercise: Frequency (week) Duration (min) Mode: Intensity: Notes: Cardiovascular: Frequency should be a minimum 5-7 times per week of moderate intensity or 3-4 of vigorous intensity. 30-60 minutes Recommended examples include, but are n (more content not included)... Normal [facility] CNOV Office Visit (DERMMN ) FELICIAHAKAN Aidan ([id number]) 1975 M Date Time Provider Department 10/12/23 11:00 AM VALENCIA GORDON DERMMN During your visit today, we recorded the following information about you: Valencia Gordon MD 10/12/2023 6:34 PM Signed New Patient CC: FBSE HPI: Hakan Aidan Felicia is a 47 year old male who presents for a full body skin check. Lesion #1 Location Back, face, right shoulder Duration years Growth Yes- says they are but patient cannot see Bleeding no Pain no Color change no Trauma no PMH: Personal hx of Actinic Keratoses (field treatment)?No Personal hx of atypical nevus : no Personal hx of NMSC? No Personal hx of melanoma? No Personal hx of transplant/immunosuppressio n: No FMH: Hx of melanoma? No Social: Occupation: Sales Sunscreen use: Sometimes Blistering sunburn history: childhood Tanning bed use:No Smoking: No Medications: fluoxetine 20 mg ORAL capsule Take 1 capsule by mouth once daily. ibuprofen 800 mg ORAL tablet Take one(1) tablet every eight(8) hours with food as needed for pain. Pseudoephedrine-Guaifenesin 120-1,200 mg ORAL Tb12 Take one (1) tablet every twelve (12) hours as directed for sinus cogestion omeprazole(PRILOSEC 40 MG CAP) Take one(1) capsule daily. PE: General: Well appearing male in NAD Neuro: Alert, pleasant, cooperative Blanco Type: II Skin exam performed including face, scalp, neck, chest, abdomen, back, arms, hands including nails, legs, and feet. All are wnl except with the following findings: - right clavicle with waxy peralta stuck on papule - several brown and black stuck-on papules on the back - right zygomatic cheek with atrophic white scar with rim of erythema - acneiform papules on the chin and chest Impression/Plan: Irritated seborrheic keratoses 2 lesions treated with cryotherapy Liquid nitrogen was applied for 10-12 seconds to the lesion(s) and the expected blistering or scabbing reaction explained. Return if lesion(s) fail to fully resolve. 2. Acne with acne scar - continue to monitor The lesion on the right cheek does not have clinical or dermoscopic features concerning for skin cancer, advised to monitor for bleeding or growth -Sunscreen (SPF 30 or higher) and sun protection reviewed. The ABCDEs of melanoma were reviewed with the patient and the importance of monthly self-examination of moles was emphasized. Should any moles change in color, itch, bleed, or burn, patient will contact the office for evaluation sooner than their interval appointment. Return to clinic prn for full skin exam or sooner if needed for any new/changing lesions. Valencia Gordon MD Allergies As of Date: 10/12/2023 Noted Allergy Reaction CELEBREX (CELECOXIB) 02/26/2008 2 - Rash Date Reviewed: 10/12/2023 Reviewed by: Tanya Schwartz RD - Fully Assessed Reason for Visit: Full Body Skin Check [1445] Primary Visit Diagnosis:Inflamed seborrheic keratosis [L82.0] Other Visit Diagnoses:Scar condition and fibrosis of skin [L90.5] Skin exam, screening for cancer [Z12.83] Prescriptions as of 10/12/2023 - MULTIVITAMIN ORAL Take 1 tablet by mouth once daily. [employer] Performance and Vitality Multipack - peg 3350-Electrolytes (GOLYTELY) 236-22.74-6.74 -5.86 gram suspension Take 4,000 mL by mouth one time only for 1 dose. Refer to printed prep instructions from your doctor. - FLUoxetine HCl 20 mg tablet Take 1 tablet by mouth once daily. - Omeprazole Magnesium (PRILOSEC OTC) 20 mg tablet Take 20 mg by mouth once daily. 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 was identified by name and birthdate. Latex allergy: No Pend Hep C (needs completed once ages 18-79 years) ordered Pend HIV (needs completed once ages 13-64 years) ordered Medications will be reviewed by MD. Medication list reviewed by RN. Importance of a current medication list discussed with pt. Patient verbalizes good understanding. Date of last Colonoscopy: never Next Due: due now Immunizations Reviewed the following vaccines with patient. See also immunization section in Epic for vaccine history and vaccines patient received today. Td-n/a Tdap- given 10/12/23 per MD order Pneumococcal- (Pneumovax 23)-n/a Prevnar 13- n/a PCV 20-n/a Hepatitis A-n/a Hepatitis B-n/a Influenza-declined Shingrix-n/a Covid-19 3615-2953- declined RSV- n/a See Immunization record in EPIC. Discussed with patient current recommendations from the CDC for routine adult immunizations. Questions answered. Pt. verbalizes understanding of information discussed. Gave VIS sheet earlier today and provided patient with [facility] Immunization System Document. Pt afebrile and allergies reviewed. Pt tolerated injection well. See immunization section in epic. VISUAL ACUITY Patient declines vision exam Date of Last Exam - Fall 2022 Spirometry: Explained spirometry procedure to pt. Questions answered. Pt. verbalizes good understanding of information discussed. Spirometry testing done. Rebekah Johnston MD 10/25/2023 7:12 AM Signed PRESENT COMPLAINTS: Mr. Hakan Duarte is a 47 year old man who presents for comprehensive medical examination and assessment. PRESENT MEDICATIONS: PRILOSEC OTC 20 mg tablet: 1 daily Fluoxetine HCl 20 mg tablet: 1 daily Take 1 tablet by mouth once daily. [facility] Performance and Vitality Multipack: 1 daily GOLYTELY: prep for colonoscopy MEDICATION ALLERGIES: Celebrex (Celecoxib):Rash PAST MEDICAL HISTORY: Esophageal Reflux/GERD Sterilization Alcoholism in Recovery in patient rehab 10/03/2023 Panic Disorder Without Agoraphobia - 2009 Behcet Recurrent Disease PAST SURGICAL AND PROCEDURAL HISTORY: [place] teeth extraction 2002 Vasectomy 08/16/2008 Laparoscopic repair of right Inguinal Hernia 08/16/2008 FAMILY MEDICAL HISTORY: Mother:1950 Rheumatoid Arthritis, Thyroid Father: 1951 Lipids, Diabetes, Alcohol abuse Brother:Arthur 1974 Alcohol abuse Brother::Ajith 1976 No Known Health Problems Maternal Grandmother:No known medical problems,no cause of identified. Maternal Grandfather: Sudden Cardiac , at age 72 Paternal Grandmother: Diabetes, at age 85 Paternal Grandfather: Colon Cancer, at age 75 Son: Richard 2005 Reactive airway Son: Zafar 2006 No Known Medical Problems SOCIAL HISTORY: Years Of Education Completed: 16 years Marital Status: to [place] with 2 children Tobacco Use: Never Alcohol Use: Not Currently (alcohol rehab 08/2023) Caffeine: 3 cups a day + 24 oz of diet soda Sleep: no problems without alcohol Wears Seat Belt and Bike Helmet Diet: trying to eat well and get adequate hydration, granola bar for breakfast, lunch granola bar, nuts, balanced dinner good water Exercise Most days running, strength training , and stretching Sleep thru out the night 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 Mild stress level at work reported. REVIEW OF SYSTEMS: GENERAL: Denies fever, chills, or night sweats. No significant changes in weight. Energy level is decent. DERMATOLOGIC: No new skin conditions or rashes. More and larger moles. EYES: No recent visual changes. Wears glasses/contacts. Last eye exam was fall 2023. ENT: No hearing loss or tinnitus. Last dental exam within past 6 months. No significant allergies or recurrent sinus infections. RESPIRATORY: No cough, dyspnea, or wheezing. CARDIOVASCULAR: No chest pain with exertion or at rest, palpitations, exertional pre-syncope, or edema. GASTROINTESTINAL: No persistent heartburn, abdominal cramping or pains, change in bowel habit, or rectal bleeding. GENITOURINARY: No problems with urinary stream, dysuria, frequency, urgency, incontinence, or erectile dysfunction. MUSCULOSKELETAL: No joint pains, swelling, or loss of range of motion. Has persistent back pain. NEURO: No frequent or severe headaches, vertigo, balance problems,memory problems, Denies weakness, numbness or tingling. PSYCHIATRIC: No sleeping problems or marital disc (more content not included)... Normal [facility] CNOV Office Visit (CDIE) FELICIAHAKAN ([id number]) 1975 M Date Time Provider Department 10/12/23 7:30 AM SLOANE VALENTINE During your visit today, we recorded the following information about you: Sloane Valentine AUD 10/12/2023 7:22 AM Signed [facility] PHYSICAL: HEARING SUMMARY Referred by: Rebekah Johnston MD This patient was seen for puretone air conduction screening as part of a physical examination in [facility] [place] [address]. A brief case history and puretone air conduction screening at 25 dB HL were obtained. COMMUNICATION FUNCTION SCREENIN. Have you previously been diagnosed with a hearing loss or currently utilize amplification? No 2. Does a hearing problem cause you to feel frustrated when talking to members of your family? No 3. Does a hearing problem cause you difficulty hearing/understanding co-workers, clients, or customers? No 4. Do you feel that any difficulty with your hearing limits or hampers your personal or social life? No HEARING SCREENING RESULTS: NOTE: Testing involved assessment of air conduction screening only completed at 25 dB HL. The results should not be considered a comprehensive diagnostic audiologic evaluation. 250 Hz 500 Hz 1000 Hz 2000 Hz 3000 Hz 4000 Hz 6000 Hz 8000 Hz RIGHT EAR Pass Pass Pass Pass Pass Pass Pass Pass LEFT EAR Pass Pass Pass Pass Refer Refer Pass Pass NOTE: PASS indicates a response at 25 dB HL, REFER indicates no response at 25 dB HL INTERPRETATION AND RECOMMENDATIONS: * Patient passed the hearing screening at majority of frequencies in both ears (at least 6/8 frequencies in both ears). Retest as medically indicated or sooner if a change in hearing is noted. * Use hearing protective devices when exposed to loud noise to promote hearing loss prevention. Faustina Chase, [facility] Clinical Biochemical Development Engineer Allergies As of Date: 10/12/2023 Noted Allergy Reaction CELEBREX (CELECOXIB) 02/26/2008 2 - Rash Date Reviewed: 10/12/2023 Reviewed by: Rebekah Johnston MD - Fully Assessed Reason for Visit: Physical [83] Primary Visit Diagnosis:Encounter for hearing screening without abnormal findings [Z01.10] Prescriptions as of 10/12/2023 - FLUoxetine HCl 20 mg tablet Take 1 tablet by mouth once daily. - Omeprazole Magnesium (PRILOSEC OTC) 20 mg tablet Take 20 mg by mouth once daily. - fluoxetine 20 mg ORAL capsule Take 1 capsule by mouth once daily. 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/09/2022 Elevation of levels of liver transaminase level*10/12/2023 Febrile illness [R50.9] 10/12/2023 Petechial rash [R23.3] 10/12/2023 Encounter Status:Closed by SLOANE VALENTINE on 10/12/23 Normal [facility] High sensitivity method [Mass/Vol] 2.0 mg/L Normal <3.1 [facility] Comment on above: Order Comment: Speci men Type: BLOOD SPECIMENOrdering Facility: [facility] Address: [address] [place] [address] Result Comment: hsCR P < 1.0 mg/L, relative risk is low hsCRP 1.0-3.0 mg/L, relative risk is average hsCRP > 3.0 mg/L, relative risk is high Reference: Carmona TA, Alverto GA, Ben RW, et al. Markers of Inflammation and Cardiovascular Disease. Application to Clinical and Public Health Practice. A Statement for Healthcare Professionals from the Centers for Disease Control and Prevention and the [place] [employer]. Circulation 2003;107:499-511. Performed By: #### 2 276-4, 88239-6, 2324-2, 3084-1, 97078-7 ####[facility] LABCLIA [id number] [address] [place] Performed By: #### 2 276-4, 2324-2, 63372-5, 21389-8, 3084-1 ####[facility] LABDADA [id number] [address] [facility] CT CALCIUM SCORING SELF Kieran n 10-12-2023 CT CALCIUM SCORING SELF PAY * * *Final Report* * * DATE OF EXAM: Oct 12 2023 1:36PM [facility] 2105 - CT CALCIUM SCORING SELF PAY / PROCEDURE REASON: Encounter for screening for cardiovascular disorders * * * * Physician Interpretation * * * * Examination: CT Coronary Calcium Score Direct Image Comparison: None HISTORY: 47 years old male for risk stratification. TECHNIQUE: SCANNER: Siemens Definition Edge scanner 128 slice scanner PROTOCOL: Sequential imaging with prospective triggering and 3-mm slice reconstruction was performed without contrast administration. Scan Range: raymundo to the base of the heart Scan acquisition was uncomplicated Tube Voltage: [address] Dose-Length Product (DLP): [address] Dose Reduction Employed: Automated exposure control (AEC) CONTRAST: None Macro Version: [id number]:CCTWO_4 For optimization of anatomic evaluation, off-line postprocessing was performed on a dedicated workstation by the interpreting physician. STUDY LIMITATIONS: None. RESULT: LINES, TUBES and DEVICES: None limited CHEST: visualized Chest wall anatomy: unremarkable. visualized LUNGS: -3 mm solid lung nodule in the right upper lobe (image 31) -Calcified granuloma left lower lobe visualized MEDIASTINUM: Small hiatal hernia PERICARDIUM: unremarkable CENTRAL PULMONARY ARTERY: normal dimensions. Assessment is limited due to lack of contrast enhancement. CARDIAC CHAMBERS: Left atrial cavity dilation sioux AORTIC VALVE: assessment is limited in the current study. No leaflet calcification. visualized AORTA: Aortic Size: Normal size visualized thoracic aorta. Wall Changes: very mild wall calcifications AORTIC DIMENSIONS: sioux AORTIC ROOT: 3.9 cm measured [id number] mid ASCENDING THORACIC AORTA: 3.3 cm mid DESCENDING THORACIC AORTA: 2.7 cm CORONARY ANATOMY: normal origin of the coronary arteries. Calcium Score (Agatston Units): LM: 0 AU LAD: 132 AU LCx: 5 AU RCA: 0 AU Other: 0 AU Total: 137 AU Percentile Rank (age and gender matched relative to reference population): 96 percentile* [* [email or web address]] limited upper ABDOMEN: unremarkable [employer] (topogram) images: No additional findings. IMPRESSION: - Total Coronary Calcium Score (CAC) = 137 AU. -Mild dilation of the left atrium. Match Up Worker: ARIA Transcribe Date/Time: Oct 12 2023 1:43P Dictated by : CÉSAR COBB MD This examination was interpreted and the report reviewed and electronically signed by: GA GHOSH MD on Oct 12 2023 2:47PM EST [id number] Normal [facility] CT Heart and Coronary arteri es for calcium scoring WO contraston 10-12-2023 IMPRESSION: - Total Coronary Calcium Score (CAC) = 137 AU. -Mild dilation of the left atrium. Match Up Worker: ARIA Transcribe Date/Time: Oct 12 2023 1:43P Dictated by : CÉSAR COBB MD This examination was interpreted and the report reviewed and electronically signed by: GA GHOSH MD on Oct 12 2023 2:47PM [facility] DIVISION OF RADIOLOGY * * *Final Report* * * DATE OF EXAM: Oct 12 2023 1:36PM [facility] 2105 - CT CALCIUM SCORING SELF PAY / PROCEDURE REASON: Encounter for screening for cardiovascular disorders * * * * Physician Interpretation * * * * Examination: CT Coronary Calcium Score Direct Image Comparison: None HISTORY: 47 years old male for risk stratification. TECHNIQUE: SCANNER: Siemens Definition Edge scanner 128 slice scanner PROTOCOL: Sequential imaging with prospective triggering and 3-mm slice reconstruction was performed without contrast administration. Scan Range: raymundo to the base of the heart Scan acquisition was uncomplicated Tube Voltage: [address] Dose-Length Product (DLP): [address] Dose Reduction Employed: Automated exposure control (AEC) CONTRAST: None Macro Version: [id number] For optimization of anatomic evaluation, off-line postprocessing was performed on a dedicated workstation by the interpreting physician. STUDY LIMITATIONS: None. RESULT: LINES, TUBES and DEVICES: None limited CHEST: visualized Chest wall anatomy: unremarkable. visualized LUNGS: -3 mm solid lung nodule in the right upper lobe (image 31) -Calcified granuloma left lower lobe visualized MEDIASTINUM: Small hiatal hernia PERICARDIUM: unremarkable CENTRAL PULMONARY ARTERY: normal dimensions. Assessment is limited due to lack of contrast enhancement. CARDIAC CHAMBERS: Left atrial cavity dilation sioux AORTIC VALVE: assessment is limited in the current study. No leaflet calcification. visualized AORTA: Aortic Size: Normal size visualized thoracic aorta. Wall Changes: very mild wall calcifications AORTIC DIMENSIONS: sioux AORTIC ROOT: 3.9 cm measured [id number] mid ASCENDING THORACIC AORTA: 3.3 cm mid DESCENDING THORACIC AORTA: 2.7 cm CORONARY ANATOMY: normal origin of the coronary arteries. Calcium Score (Agatston Units): LM: 0 AU LAD: 132 AU LCx: 5 AU RCA: 0 AU Other: 0 AU Total: 137 AU Percentile Rank (age and gender matched relative to reference population): 96 percentile* [* [email or web address] [email or web address]] limited upper ABDOMEN: unremarkable [employer] (topogram) images: No additional findings. DIVISION OF RADIOLOGY Provider, [facility] - 10/12/2023 * * *Final Report* * * DATE OF EXAM: Oct 12 2023 1:36PM [facility] 2105 - CT CALCIUM SCORING SELF PAY / PROCEDURE REASON: Encounter for screening for cardiovascular disorders * * * * Physician Interpretation * * * * Examination: CT Coronary Calcium Score Direct Image Comparison: None HISTORY: 47 years old male for risk stratification. TECHNIQUE: SCANNER: Siemens Definition Edge scanner 128 slice scanner PROTOCOL: Sequential imaging with prospective triggering and 3-mm slice reconstruction was performed without contrast administration. Scan Range: raymundo to the base of the heart Scan acquisition was uncomplicated Tube Voltage: [address] Dose-Length Product (DLP): [address] Dose Reduction Employed: Automated exposure control (AEC) CONTRAST: None Macro Version: [id number] For optimization of anatomic evaluation, off-line postprocessing was performed on a dedicated workstation by the interpreting physician. STUDY LIMITATIONS: None. RESULT: LINES, TUBES and DEVICES: None limited CHEST: visualized Chest wall anatomy: unremarkable. visualized LUNGS: -3 mm solid lung nodule in the right upper lobe (image 31) -Calcified granuloma left lower lobe visualized MEDIASTINUM: Small hiatal hernia PERICARDIUM: unremarkable CENTRAL PULMONARY ARTERY: normal dimensions. Assessment is limited due to lack of contrast enhancement. CARDIAC CHAMBERS: Left atrial cavity dilation sioux AORTIC VALVE: assessment is limited in the current study. No leaflet calcification. visualized AORTA: Aortic Size: Normal size visualized thoracic aorta. Wall Changes: very mild wall calcifications AORTIC DIMENSIONS: sioux AORTIC ROOT: 3.9 cm measured [id number] mid ASCENDING THORACIC AORTA: 3.3 cm mid DESCENDING THORACIC AORTA: 2.7 cm CORONARY ANATOMY: normal origin of the coronary arteries. Calcium Score (Agatston Units): LM: 0 AU LAD: 132 AU LCx: 5 AU RCA: 0 AU Other: 0 AU Total: 137 AU Percentile Rank (age and gender matched relative to reference population): 96 percentile* [* [email or web address]] limited upper ABDOMEN: unremarkable [employer] (topogram) images: No additional findings. IMPRESSION IMPRESSION: - Total Coronary Calcium Score (CAC) = 137 AU. -Mild dilation of the left atrium. Match Up Worker: ARIA Transcribe Date/Time: Oct 12 2023 1:43P Dictated by : CÉSAR COBB MD This examination was interpreted and the report reviewed and electronically signed by: GA GHOSH MD on Oct 12 2023 2:47PM EST [facility] Radiology Study observation (narrative) [facility] CT Heart and Coronary arteri es for calcium scoring WO contrastOrdered By: [facility] Provider on 10-12-2023 [facility] Cholesterol in LDL Direct as say [Mass/Vol]on 10-12-2023 Cholesterol in LDL [Mass/Vol] 149 mg/dL High <100 [facility] Comment on above: Order Comment: Speci men Type: BLOOD SPECIMENOrdering Facility: [facility] Address: [address] [place] [address] Result Comment: <100 mg/dL, Optimal 100-129 mg/dL, Near optimal/above optimal 130-159 mg/dL, Borderline high 160-189 mg/dL, High >189 mg/dL, Very high Secondary prevention optimal LDL Cholesterol levels are recommended to be < 70 mg/dL Performed By: #### 2 276-4, 18058-5, 2324-2, 3084-1, 28802-9 ####[facility] LABCLIA [id number] [address] [address] [place] Performed By: #### 2 276-4, 2324-2, 82438-2, 28906-0, 3084-1 ####[facility] LABCLIA [id number] [address] [address] [place] Cholesterol in VLDL [Mass/Vol] 17 mg/dL Normal <30 [facility] Comment on above: Order Comment: Speci men Type: BLOOD SPECIMENOrdering Facility: [facility] Address: [address] [place] [address] Performed By: #### 2 276-4, 90382-4, 2324-2, 3084-1, 05335-5 ####[facility] LABCLIA [id number] [place] [id number] [place] Performed By: #### 2 276-4, 2324-2, 70511-8, 29244-1, 3084-1 ####[facility] LABCLIA [id number] [address] [address] [place] Comprehensive metabolic 2000 panelon 10-12-2023 ALP [Catalytic activity/Vol] 58 U/L Normal 38-113 [facility] Comment on above: Order Comment: Speci men Type: BLOOD SPECIMENOrdering Facility: [facility] Address: [address] [place] [address] Performed By: #### Ricardo TESTO, 41657-6, 64369-0 ####[facility] LABCLIA [id number] [place] [id number] [place] ALT [Catalytic activity/Vol] 33 U/L Normal 10-54 [facility] Comment on above: Order Comment: Speci men Type: BLOOD SPECIMENOrdering Facility: [facility] Address: [address] [place] [address] Performed By: #### B TESTO, 08664-6, 08882-4 ####[facility] LABCLIA [id number] [place] [address] [place] Anion gap [Moles/Vol] 13 mmol/L Normal 9-18 [facility] Comment on above: Order Comment: Speci men Type: BLOOD SPECIMENOrdering Facility: [facility] Address: [address] [place] [address] Performed By: #### Ricardo COPPOLAO, 29995-0, 03238-7 ####[facility] LABCLIA [id number] [place] [address] [place] AST [Catalytic activity/Vol] 29 U/L Normal 14-40 [facility] Comment on above: Order Comment: Speci men Type: BLOOD SPECIMENOrdering Facility: [facility] Address: [address] [place] [address] Performed By: #### Ricardo GARSIA, 19338-7, 10905-0 ####[facility] LABCLIA [id number] [place] [address] [place] Bilirubin [Mass/Vol] 0.9 mg/dL Normal 0.2-1.3 [facility] Comment on above: Order Comment: Speci men Type: BLOOD SPECIMENOrdering Facility: [facility] Address: [address] [place] [address] Performed By: #### Ricardo COPPOLAO, 15434-8, 00527-6 ####[facility] LABCLIA [id number] [place] [id number] [place] Calcium [Mass/Vol] 9.8 mg/dL Normal 8.5-10.2 [facility] Comment on above: Order Comment: Speci men Type: BLOOD SPECIMENOrdering Facility: [facility] Address: [address] [place] [address] Performed By: #### Ricardo COPPOLAO, 42426-9, 91881-0 ####[facility] LABCLIA [id number] [place] [address] [place] Chloride [Moles/Vol] 102 mmol/L Normal 97-105 [facility] Comment on above: Order Comment: Speci men Type: BLOOD SPECIMENOrdering Facility: [facility] Address: [address] [place] [address] Performed By: #### B TESTO, 27866-3, 28938-8 ####[facility] LABCLIA [id number] [place] [address] [place] CO2 [Moles/Vol] 26 mmol/L Normal 22-30 [facility] Comment on above: Order Comment: Speci men Type: BLOOD SPECIMENOrdering Facility: [facility] Address: [address] [place] [address] Performed By: #### B TESTO, 25608-0, 83839-7 ####[facility] LABCLIA [id number] [address] STATES OF [facility] Creatinine [Mass/Vol] 0.86 mg/dL Normal 0.73-1.22 [facility] Comment on above: Order Comment: Speci men Type: BLOOD SPECIMENOrdering Facility: [facility] Address: [address] [place] [address] Performed By: #### B TESTO, 98598-2, 88463-1 ####[facility] LABIA [id number] [place] [address] [place] [facility] Creatinine and Glomerular filtration rate.predicted panel (S/P/Bld) 109 mL/min/1.73m??? Normal >=60 [facility] Comment on above: Order Comment: Speci men Type: BLOOD SPECIMENOrdering Facility: [facility] Address: [address] [place] [address] Result Comment: Massiel mated Glomerular Filtration Rate (eGFR) is calculated using the 2020 CKD-EPI creatinine equation. This equation utilizes serum creatinine, sex, and age as parameters. The creatinine assay has traceable calibration to isotope dilution-mass spectrometry. Refer to KDIGO guidelines for clinical interpretation. In patients with unstable renal function, e.g. those with acute kidney injury, the eGFR may not accurately reflect actual GFR. Performed By: #### Ricardo GARSIA, 18108-8, ####[facility] LABCLIA [id number] [address] [address] [place] Glucose [Mass/Vol] 91 mg/dL Normal 74-99 [facility] Comment on above: Order Comment: Rod ambrose Type: BLOOD SPECIMENOrdering Facility: [facility] Address: [address] [place] [address] Result Comment: The [place] Diabetes Association (ADA) provides guidance for cutoff values for fasting glucose and random glucose. The ADA defines fasting as no caloric intake for at least 8 hours. Fasting plasma glucose results between 100 to 125 mg/dL indicate increased risk for diabetes (prediabetes). Fasting plasma glucose results greater than or equal to 126 mg/dL meet the criteria for diagnosis of diabetes. In the absence of unequivocal hyperglycemia, results should be confirmed by repeat testing. In a patient with classic symptoms of hyperglycemia or hyperglycemic crisis, random plasma glucose results greater than or equal to 200 mg/dL meet the criteria for diagnosis of diabetes. Reference: Standards of Medical Care in Diabetes 2016, [place] Diabetes Association. Diabetes Care. 2016.39(Suppl 1). Performed By: #### Ricardo GARSIA, , ####[facility] LABCLIA [id number] [place] [id number] [place] Potassium [Moles/Vol] 4.6 mmol/L Normal 3.7-5.1 [facility] Comment on above: Order Comment: Rod ambrose Type: BLOOD SPECIMENOrdering Facility: [facility] Address: [address] [place] [address] Performed By: #### Ricardo COPPOLAO, , ####[facility] LABCLIA [id number] [facility] [address] [address] [place] Protein [Mass/Vol] 7.3 g/dL Normal 6.3-8.0 [facility] Comment on above: Order Comment: Speci men Type: BLOOD SPECIMENOrdering Facility: [facility] Address: [address] [place] [address] Performed By: #### Ricardo GARSIA, 43668-7, 10389-7 ####[facility] LABCLIA [id number] [place] [address] [place] Sodium [Moles/Vol] 141 mmol/L Normal 136-144 [facility] Comment on above: Order Comment: Speci men Type: BLOOD SPECIMENOrdering Facility: [facility] Address: [address] [place] [address] Performed By: #### Ricardo GARSIA, 60844-0, 29603-7 ####[facility] LABCLIA [id number] [place] [address] [place] Urea nitrogen [Mass/Vol] 18 mg/dL Normal 9-24 [facility] Comment on above: Order Comment: Speci men Type: BLOOD SPECIMENOrdering Facility: [facility] Address: [address] [place] [address] Performed By: #### Ricardo GARSIA, 31186-1, 08079-5 ####[facility] LABCLIA [id number] [place] [id number] [place] ECG [facility] Ventricular Rate : 55 BPM Atrial Rate : 55 BPM P-R Interval : 132 ms QRS Duration : 102 ms Q-T Interval : 476 ms QTC Calculation(Bazett) : 455 ms Calculated P Thompson : -40 degrees Calculated R Thompson : 27 degrees Calculated T Thompson : 28 degrees UNUSUAL P AXIS, POSSIBLE ECTOPIC ATRIAL BRADYCARDIA ABNORMAL ECG Confirmed by EZEKIEL EVANS MD (22) on 10/19/2023 6:39:13 PM NAME : HAKAN DUARTE PID : [id number] : 1975 Gender : Male Race : ORD : [id number] Procedure Date : Oct 12 2023 11:37:14 Edit Date : Oct 19 2023 18:41:56 Diagnosis: UNUSUAL P AXIS, POSSIBLE ECTOPIC ATRIAL BRADYCARDIA ABNORMAL ECG Confirmed by EZEKIEL EVANS MD (22) on 10/19/2023 6:39:13 PM Test Reason : Location : 50 : A11 A11 Overread By : EZEKIEL EVANS MD Edited By : EZEKIEL EVANS MD Referred By : REBEKAH JOHNSTON Acquired by : EMMA AMIN Normal [facility] EX ALB/CREAT RND URon 2023 Albumin DL <= 20 mg/L (U) [Mass/Vol] mg/dL Normal [facility] Comment on above: Order Comment: Speci men Type: URINE SPECIMENOrdering Facility: [facility] Address: [address] [place] [address] Performed By: #### U ACREX ####[facility] LABCLIA [id number] [place] [address] [place] Albumin/Creatinine (U) [Mass ratio] <5 Normal <30 [facility] Comment on above: Order Comment: Speci men Type: URINE SPECIMENOrdering Facility: [facility] Address: [address] [place] [address] Result Comment: Adul t Male and Female Nephrotic Criteria: <30 mg/g is considered normal to mildly increased 30-300 mg/g is considered moderately increased >300 mg/g is considered severely increased KDIGO. (2013). KDIGO 2012 Clinical Practice Guideline for the Evaluation and Management of Chronic Kidney Disease. Official Journal of the International Society of Nephrology, 3(1), 1-150. Performed By: #### U ACREX ####[facility] LABCLIA [id number] [place] [address] [place] Creatinine (U) [Mass/Vol] 244.6 mg/dL Normal 20.0-300.0 [facility] Comment on above: Order Comment: Speci men Type: URINE SPECIMENOrdering Facility: [facility] Address: [address] [place] [address] Performed By: #### U ACREX ####[facility] LABCLIA [id number] [place] [address] [place] EX UA CHEMSTRIPon 10-12-2023 Bilirubin Ql (U) Negative Normal Negative [facility] Comment on above: Order Comment: Speci men Type: URINE SPECIMENOrdering Facility: [facility] Address: [address] [place] [address] Performed By: #### U AEX ####[facility] LABCLIA [id number] [place] [address] [place] Clarity (Unsp spec) Turbid Abnormal Clear [facility] Comment on above: Order Comment: Speci men Type: URINE SPECIMENOrdering Facility: [facility] Address: [address] [place] [address] Performed By: #### U AEX ####[facility] LABCLIA [id number] [place] [address] [place] Color (U) Yellow Normal Yellow [facility] Comment on above: Order Comment: Speci men Type: URINE SPECIMENOrdering Facility: [facility] Address: [address] [place] [address] Performed By: #### U AEX ####[facility] LABCLIA [id number] [place] [address] [place] Glucose Test strip (U) [Mass/Vol] Negative Normal Negative [facility] Comment on above: Order Comment: Speci men Type: URINE SPECIMENOrdering Facility: [facility] Address: [address] [place] [address] Performed By: #### U AEX ####[facility] LABCLIA [id number] [place] [address] [place] Hemoglobin Ql (U) Negative Normal Negative [facility] Comment on above: Order Comment: Speci men Type: URINE SPECIMENOrdering Facility: [facility] Address: [address] [place] [address] Performed By: #### U AEX ####[facility] LABCLIA [id number] [place] [address] [place] Ketones Ql (U) Trace Abnormal Negative [facility] Comment on above: Order Comment: Speci men Type: URINE SPECIMENOrdering Facility: [facility] Address: [address] [place] [address] Performed By: #### U AEX ####[facility] LABCLIA [id number] [place] [address] [place] Leukocyte esterase Test strip Ql (U) Negative Normal Negative [facility] Comment on above: Order Comment: Speci men Type: URINE SPECIMENOrdering Facility: [facility] Address: [address] [place] [address] Performed By: #### U AEX ####[facility] LABCLIA [id number] [place] [address] [place] Nitrite Ql (U) Negative Normal Negative [facility] Comment on above: Order Comment: Speci men Type: URINE SPECIMENOrdering Facility: [facility] Address: [address] [place] [address] Performed By: #### U AEX ####[facility] LABCLIA [id number] [place] [address] [place] pH (U) 5.5 [pH] Normal <8.5 [facility] Comment on above: Order Comment: Speci men Type: URINE SPECIMENOrdering Facility: [facility] Address: [address] [place] [address] Performed By: #### U AEX ####[facility] LABCLIA [id number] [place] [address] [place] Protein (U) [Mass/Vol] Negative Normal Negative [facility] Comment on above: Order Comment: Speci men Type: URINE SPECIMENOrdering Facility: [facility] Address: [address] [place] [address] Performed By: #### U AEX ####[facility] [id number] [place] [address] [place] Specific gravity (U) [Rel density] 1.028 Normal 1.005-1.030 [facility] Comment on above: Order Comment: Speci men Type: URINE SPECIMENOrdering Facility: [facility] Address: [address] [place] [address] Performed By: #### U AEX ####[facility] [id number] [place] [address] [place] Urobilinogen Ql (U) 0.2 EU/dL Normal 0.2-1.0 EU/dL [facility] Comment on above: Order Comment: Speci men Type: URINE SPECIMENOrdering Facility: [facility] Address: [address] [place] [address] Performed By: #### U AEX ####[facility] [id number] [address] STATES OF [facility] EXEC EXERCISE STRESS ECG (WI THOUT IMAGING)on 10-12-2023 EXEC EXERCISE STRESS ECG (WITHOUT IMAGING) Stress ECG Report: [facility] ARNOLD-2 Date of service: 10/12/2023 1:56:27 PM COOK Ordering physician: REBEKAH JOHNSTON professional services specialist: Diane Jackson MS, CEP Hardware Technician: Lani Zimmer Interpreting physician: Li Dhillon MD Patient name: MR. HAKAN DUARTE Age: 47 years Gender: M Height: 180.34 cm BSA: 2.07 m Weight: 85.28 kg BMI: 26.2 kg/m Indication: Encounter for general medical examination without abnormal findings Stress ECG Conclusion: Conclusion: Normal Comments: Atrial ectopic rhythm @ supine, reviewed w/ fellows/staff okay to stress. NSR w/ standing. Stress ECG Summary: The patient's resting heart rate was 62 bpm and blood pressure was 126/90 mmHg. The patient exercised according to the Yosi protocol. The estimated end-exercise MET level achieved using the FRIEND equation was 10.5, which is within the 25th to 50th percentile for age and sex. The estimated end-exercise MET level achieved using the previous ACSM equation was 13.5. The test was terminated due to general fatigue and the total exercise time was 12 minutes and 0 seconds. No symptoms provoked during stress. The maximum heart rate was 157 bpm, which is 90% of the predicted heart rate for age. This is an adequate heart rate response. Peak blood pressure was 154/84 mmHg. The double product achieved was [address]. Resting ECG: Atrial Ectopic Rhythm Symptoms at rest: No symptoms Exercise Protocol: Yosi Stress Exercise Table: +-----+ +-------- + +---+---+---+--- -+---+----+ Stage Speed (MPH) Grade(%) Time (min) HR SYS SARAH RPE SOB METS +-----+ +-------- + +---+---+---+--- -+---+----+ 1 1.7 10.0 3.0 79 128 82 6.0 0.5 4.2 +-----+ +-------- + +---+---+---+--- -+---+----+ 2 2.5 12.0 6.0 98 126 82 8.0 1.0 6.1 +-----+ +-------- + +---+---+---+--- -+---+----+ 3 3.4 14.0 9.0 126 154 84 13.0 4.0 8.3 +-----+ +-------- + +---+---+---+--- -+---+----+ +-----+ +-------- -+ +---+---+---+-- --+---+----+ Speed (MPH) Grade (%) Time (min) HR SYS SARAH RPE SOB METS +-----+ +-------- -+ +---+---+---+-- --+---+----+ Final 4.2 16.0 12.00 157 154 84 17.0 7.0 10.5 +-----+ +-------- -+ +---+---+---+-- --+---+----+ +------+ + Stage Arrhythmias +------+ + 3 Rare PAC (<3/min) +------+ + +-----+ + Arrhythmias +-----+ + Final Rare PAC (<3/min) +-----+ + Recovery Table: +------+ +------- -+ +---+---+---+-- --+ Stage Speed (MPH) Grade(%) Time (min) HR SYS SARAH METS +------+ +------- -+ +---+---+---+-- --+ 1 1.5 2.5 1.0 120 192 76 2.7 +------+ +------- -+ +---+---+---+-- --+ 2 1.5 2.5 2.0 94 196 82 2.7 +------+ +------- -+ +---+---+---+-- --+ 3 3.0 81 184 80 +------+ +------- -+ +---+---+---+-- --+ 4 5.0 81 142 92 +------+ +------- -+ +---+---+---+-- --+ +-----+ + Stage Arrhythmias +-----+ + 2 Rare PAC (<3/min) +-----+ + Stress Observations: Resting HR: 62 bpm Peak HR: 157 bpm (90% MPHR) Resting BP: 126 / 90 mmHg Peak BP: 154 / 84 mmHg Total exercise time: 12 minutes 0 seconds METS achieved: 10.5 Chronotropic response index (CRI): 0.85 Heart rate recovery (HRR): 37 bpm Rate Pressure Product (RPP): 12582 Hunter Treadmill Score: 12.0 Stress Exercise Observations: Reason for test termination: general fatigue, Symptoms during test: No symptoms provoked during stress, Heart rate response: Adequate heart rate response, Normal CRI (>0.8 Not on B Jorge) and Normal HRR (>12 or >[address]/EC), Blood pressure response: Normal BP response, ST segment and T wave changes: No ST changes, Hunter Treadmill Score: Normal Hunter Treadmill Score (>=5) and Arrhythmias: PACs Metabolic Exercise Data Variable: Observed value [Expected Range] HGI: 2.1 [>1.06 bpm/mmHg] IMPORTANT NOTE REGARDING ESTIMATED MET VALUES: Effective 03/23/2020, the reference equation for determining estimated MET values for [facility] stress tests changed. Comparison of test results before and after that date may show a change in estimated MET values for peak/max exercise despite a test duration that is similar in length. The validity of the new FRIEND equation for exercise METS is endorsed by the [place] [employer] Association. Shira P, Karlie ALAS, Tushar R, Cecil J, Terri Singh. New Generalized Equation for Predicting Maximal Oxygen Uptake (from the Fitness Registry and the Importance of Exercise National Database). The [place] Journal of Cardiology. 2017;120(4):688-692). Electronically signed by Li Cristina (more content not included)... Normal [facility] EXECUTIVE PANEL PSA FREEon 0 10-12-2023 Free PSA/Total PSA [Mass fraction] 21 % Normal [facility] Comment on above: Order Comment: Speci men Type: BLOOD SPECIMENOrdering Facility: [facility] Address: [address] [place] [address] Result Comment: Tota l and free PSA test methodology used is the Electrochemiluminescence Immunoassay by [employer]. Total or free PSA values by differing methodologies cannot be interchanged. The below table lists the probability of finding prostate cancer upon needle biopsy, for men 50 years or older and total PSA concentrations from 4.0-10.0 ng/mL. Results should be interpreted within the broader clinical context. Free PSA(%) 50-59 years 60-69 years >69 years <11 49.2% 57.5% 64.5% 11-18 26.9% 33.9% 40.8% 19-25 18.3% 23.9% 29.7% >25 9.1% 12.2% 15.8% Performed By: #### E XEPSA, 03064-5, 3024-7, 3016-3 ####[facility] LABCLIA [id number] [address] [address] [facility] [place] Performed By: #### 2 4331-1, 3024-7, EXEPSA, 3016-3 ####[facility] LABCLIA [id number] [address] [address] [place] Prostate specific Ag [Mass/Vol] 0.67 ng/mL Normal <2.60 [facility] Comment on above: Order Comment: Speci men Type: BLOOD SPECIMENOrdering Facility: [facility] Address: [address] [place] [address] Result Comment: Tota l PSA test methodology used is the Electrochemiluminescence Immunoassay by [employer]. Total PSA values by differing methodologies cannot be interchanged. Performed By: #### E XEPSA, 29945-5, 4-7, 3016-3 ####[facility] LABCLIA [id number] [place] [address] [place] Performed By: #### 2 4331-1, 7, MARY, 3016-3 ####[facility] LABCLIA [id number] [address] [address] [place] Ferritin SerPl-mCncon 2023 Ferritin [Mass/Vol] 266.0 ng/mL Normal 30.3-565.7 [facility] Comment on above: Order Comment: Speci men Type: BLOOD SPECIMENOrdering Facility: [facility] Address: [address] [place] [address] Performed By: #### 2 276-4, 61686-9, 2324-2, 3084-1, 83030-9 ####[facility] LABCLIA [id number] [address] [place] Performed By: #### 2 276-4, 2324-2, 18959-3, 09743-2, 3084-1 ####[facility] LABCLIA [id number] [place] [address] [place] GGT SerPl-cCncon 10-12-2023 Gamma glutamyl transferase [Catalytic activity/Vol] 21 U/L Normal 10-70 [facility] Comment on above: Order Comment: Speci men Type: BLOOD SPECIMENOrdering Facility: [facility] Address: [address] [place] [address] Performed By: #### 2 276-4, 26451-8, 2324-2, 3084-1, 47317-0 ####[facility] LABCLIA [id number] [address] [place] Performed By: #### 2 276-4, 2324-2, 35684-7, 64320-3, 3084-1 ####[facility] LABCLIA [id number] [place] [address] [place] HBV surface Ab Ql (S)on HBV surface Ab Qn (S) mIU/mL [facility] Comment on above: <8 mIU/mL: No serolo gical evidence of immunity to Hepatitis B Virus. >/= 8 to <12 mIU/mL: No serological evidence of immunity to Hepatitis B Virus. >/= 12 mIU/mL: Consistent with serological evidence of immunity to Hepatitis B Virus. [facility] HBV surface Ab Qn (S) <8.00 Normal [facility] Comment on above: Order Comment: Speci men Type: BLOOD SPECIMENOrdering Facility: [facility] Address: [address] [place] [address] Result Comment: <8 m IU/mL: No serological evidence of immunity to Hepatitis B Virus. >/= 8 to <12 mIU/mL: No serological evidence of immunity to Hepatitis B Virus. >/= 12 mIU/mL: Consistent with serological evidence of immunity to Hepatitis B Virus. Performed By: #### 3 1201-7, 2-9, 79091-0, 62340-1 ####[facility] LABCLIA [id number] [place] [address] [place] HBV surface Ab Ser Qlon 05-0 HBV surface Ab Ql (S) Negative Normal [facility] Comment on above: Order Comment: Speci men Type: BLOOD SPECIMENOrdering Facility: [facility] Address: [address] [place] [address] Result Comment: No s erological evidence of immunity to Hepatitis B Virus. Performed By: #### 3 1201-7, 9, 84784-7, 54903-8 ####[facility] LABCLIA [id number] [place] [address] [place] HCV Ab Ql (S)on 10-12-2023 Interpretation and review of laboratory results Normal [facility] HCV Ab Ser Qlon 10-12-2023 HCV Ab Ql (S) Negative Normal Negative [facility] Comment on above: Order Comment: Speci men Type: BLOOD SPECIMENOrdering Facility: [facility] Address: [address] [place] [address] Result Comment: The result suggests no evidence of active infection with Hepatitis C virus. Should recent infection be suspected, repeat testing may be considered 4-6 weeks after this draw. Performed By: #### 3 1201-7, 9, 96900-3, 43096-0 ####[facility] LABCLIA [id number] [place] [address] [place] HEPATITIS B SURFACE ANTIBODY on 10-12-2023 HBV surface Ab Ql (S) Negative [facility] Comment on above: No serological evide nce of immunity to Hepatitis B Virus. HEPATITIS C ANTIBODY IA WITH CONFIRMATIONon 10-12-2023 HCV Ab Ql (S) Negative Negative [facility] Comment on above: The result suggests no evidence of active infection with Hepatitis C virus. Should recent infection be suspected, repeat testing may be considered 4-6 weeks after this draw. HIV 1+2 Ab IA QlOrdered By: Pj Oh on 10-12-2023 HIV 1 and 2 Ab IA.rapid Nom (S/P/Bld) Negative Negative [facility] HIV 1+2 Ab+HIV1 p24 Ag IA Ql Please see HIV Interpretation Abnormal Nonreactive [facility] HIV immunoassay testing algorithm interpretation (S/P/Bld) [Interp] The preliminary positive screening test result was not confirmed by the added and performed reflexive HIV-1/2 antibody confirmatory test. While this could indicate a false-positive result in the screening test, it can also be seen in early stages of infection where HIV-1 p24 antigen is present, but not antibody. HIV nucleic acid testing on a new specimen is suggested. Alternatively, repeat HIV serology testing is recommended 2 to 3 weeks after this draw. HIV Information: Johnson Rev. Code 3701.243(E): This information has been disclosed to you from confidential records protected from disclosure by state law. You shall make no further disclosure of this information without the specific, written, and informed release of the individual to whom it pertains or as otherwise permitted by state law. A general authorization for the release of medical or other information is not sufficient for the purpose of the release of HIV test results or diagnoses. [facility] Interpretation and review of laboratory results Abnormal [facility] HIV 1+2 Ab IA Qlon HIV 1 and 2 Ab IA.rapid Nom (S/P/Bld) Negative Normal Negative [facility] Comment on above: Order Comment: Speci men Type: BLOOD SPECIMENOrdering Facility: [facility] Address: [address] [place] [address] Performed By: #### 3 1201-7, 9, 33637-4, 14946-7 ####[facility] LABCLIA [id number] [place] [address] [place] HIV 1+2 Ab+HIV1 p24 Ag IA Ql Please see HIV Interpretation Abnormal Nonreactive [facility] Comment on above: Order Comment: Speci men Type: BLOOD SPECIMENOrdering Facility: [facility] Address: [address] [place] [address] Performed By: #### 3 1201-7, 9, 67746-2, 16296-6 ####[facility] LABCLIA [id number] [place] [address] [place] HIV immunoassay testing algorithm interpretation (S/P/Bld) [Interp] Normal [facility] Comment on above: Order Comment: Speci men Type: BLOOD SPECIMENOrdering Facility: [facility] Address: [address] [place] [address] Result Comment: The preliminary positive screening test result was not confirmed by the added and performed reflexive HIV-1/2 antibody confirmatory test. While this could indicate a false-positive result in the screening test, it can also be seen in early stages of infection where HIV-1 p24 antigen is present, but not antibody. HIV nucleic acid testing on a new specimen is suggested. Alternatively, repeat HIV serology testing is recommended 2 to 3 weeks after this draw. HIV Information: Johnson Rev. Code 3701.243(E): This information has been disclosed to you from confidential records protected from disclosure by state law. You shall make no further disclosure of this information without the specific, written, and informed release of the individual to whom it pertains or as otherwise permitted by state law. A general authorization for the release of medical or other information is not sufficient for the purpose of the release of HIV test results or diagnoses. Performed By: #### 3 1201-7, 2-9, 07045-3, 18910-2 ####[facility] LABCLIA [id number] [place] [id number] [place] HbA1c (Bld)on 10-12-2023 Average glucose Estimated from glycated hemoglobin (Bld) [Mass/Vol] 105 mg/dL Normal [facility] Comment on above: Order Comment: Speci men Type: BLOOD SPECIMENOrdering Facility: [facility] Address: [address] [place] [address] Result Comment: eAG: (Estimated average glucose) is a calculated value from HgbA1c and is real estate representative of the average blood glucose level in the last 2-3 month period. Performed By: #### 5 5454-3 ####[facility] LABCLIA [id number] [place] [address] [place] HbA1c (Bld) [Mass fraction] 5.3 % Normal 4.3-5.6 [facility] Comment on above: Order Comment: Speci men Type: BLOOD SPECIMENOrdering Facility: [facility] Address: [address] [place] [address] Result Comment: Amer ican Diabetes Association guidelines indicate that patients with HgbA1c in the range 5.7-6.4% are at increased risk for development of diabetes, and intervention by lifestyle modification may be beneficial. HgbA1c greater or equal to 6.5% is considered diagnostic of diabetes. Performed By: #### 5 5454-3 ####[facility] [id number] [place] [address] [place] Iron and Iron binding capaci ty panelon 10-12-2023 Iron [Mass/Vol] 72 ug/dL Normal 41-186 [facility] Comment on above: Order Comment: Speci men Type: BLOOD SPECIMENOrdering Facility: [facility] Address: [address] [place] [address] Performed By: #### B TESTO, 64289-4, 47627-9 ####[facility] LABIA [id number] [place] [address] [place] Iron binding capacity [Mass/Vol] 247 ug/dL Normal 232-386 [facility] Comment on above: Order Comment: Speci men Type: BLOOD SPECIMENOrdering Facility: [facility] Address: [address] [place] [address] Performed By: #### B TESTO, 58945-9, 02976-7 ####[facility] LABIA [id number] [place] [address] [place] Iron/TIBC [Molar ratio] 29.1 % Normal 15.0-57.0 [facility] Comment on above: Order Comment: Speci men Type: BLOOD SPECIMENOrdering Facility: [facility] Address: [address] [place] [address] Performed By: #### B TESTO, 15237-7, 90031-7 ####[facility] LABCLIA [id number] [place] [address] [place] LPa SerPl-mCncon 10-12-2023 Lipoprotein a [Mass/Vol] mg/dL Normal <30 [facility] Comment on above: Order Comment: Speci men Type: BLOOD SPECIMENOrdering Facility: [facility] Address: [address] [place] [address] Performed By: #### 1 884-6, 98150-0 ####[facility] LABCLIA [id number] [place] [address] [place] Lipid [facility] panelon Cholesterol [Mass/Vol] 204 mg/dL High <200 [facility] Comment on above: Order Comment: Speci men Type: BLOOD SPECIMENOrdering Facility: [facility] Address: [address] [place] [address] Result Comment: <200 mg/dL, Desirable 200-239 mg/dL, Borderline high >239 mg/dL, High Performed By: #### E XEPSA, 02779-3, 3024-7, 3016-3 ####[facility] LABCLIA [id number] [address] [address] [place] Performed By: #### 2 4331-1, 3024-7, EXEPSA, 3016-3 ####[facility] LABCLIA [id number] [place] [id number] [place] Cholesterol in HDL [Mass/Vol] 38 mg/dL Low >39 [facility] Comment on above: Order Comment: Speci men Type: BLOOD SPECIMENOrdering Facility: [facility] Address: [address] [place] [address] Result Comment: 40-5 9 mg/dL, Acceptable >59 mg/dL, High: Negative risk factor for coronary heart disease <40 mg/dL, Low: Positive risk factor for coronary heart disease Performed By: #### E XEPSA, 35787-6, 3024-7, 3016-3 ####[facility] LABCLIA [id number] [place] [address] [place] Performed By: #### 2 4331-1, 3024-7, EXEPSA, 3016-3 ####[facility] LABCLIA [id number] [address] [address] [place] Cholesterol in LDL [Mass/Vol] 145 mg/dL High <100 [facility] Comment on above: Order Comment: Speci men Type: BLOOD SPECIMENOrdering Facility: [facility] Address: [address] [place] [address] Result Comment: <100 mg/dL, Optimal 100-129 mg/dL, Near optimal/above optimal 130-159 mg/dL, Borderline high 160-189 mg/dL, High >189 mg/dL, Very high Secondary prevention optimal LDL Cholesterol levels are recommended to be < 70 mg/dL Performed By: #### E XEPSA, 65590-3, 3024-7, 3016-3 ####[facility] LABCLIA [id number] [place] [address] [place] Performed By: #### 2 4331-1, 3024-7, EXEPSA, 3016-3 ####[facility] LABCLIA [id number] [place] [address] [place] Cholesterol in LDL/Cholesterol in HDL [Mass ratio] 3.82 {ratio} High <2.54 [facility] Comment on above: Order Comment: Speci men Type: BLOOD SPECIMENOrdering Facility: [facility] Address: [address] [place] [address] Result Comment: Sofia thompson: 1. National Cholesterol Education Program ATP III Guideline At-A-Glance Quick Desk Reference: National Heart, Lung, and Blood [place]. National Institutes of Health. 2001: NIH Publication No. 01-3305. 2. An International Atherosclerosis Society position paper: global recommendations for the management of dyslipidemia: executive summary, Atherosclerosis. 2014: 232(2):410-413. Performed By: #### E XERONA, 01531-3, 3023-7, 3015-3 ####[facility] LABCLIA [id number] [address] [address] [place] Performed By: #### 2 4331-1, 3023-7, EXEPSMary, 3015- ####[facility] LABCLIA [id number] [address] [address] [place] Cholesterol in VLDL [Mass/Vol] 21 mg/dL Normal <30 [facility] Comment on above: Order Comment: Speci men Type: BLOOD SPECIMENOrdering Facility: [facility] Address: [address] [place] [address] Performed By: #### E XERONA, 92539-6, 3023-12, 3015-08 ####[facility] LABCLIA [id number] [address] [address] [place] Performed By: #### 2 4331-1, 3023-12, MARY, 3015-08 ####[facility] LABCLIA [id number] [address] [address] [place] Cholesterol non HDL [Mass/Vol] 166 mg/dL High <130 [facility] Comment on above: Order Comment: Speci men Type: BLOOD SPECIMENOrdering Facility: [facility] Address: [address] [place] [address] Result Comment: <130 mg/dL, Optimal 130-159 mg/dL, Near optimal/above optimal 160-189 mg/dL, Borderline high 190-219 mg/dL, High >219 mg/dL, Very high Secondary prevention optimal non HDL Cholesterol levels are recommended to be <100 mg/dL Performed By: #### E XEPSA, 13496-3, 3023-7, 3015-3 ####[facility] LABCLIA [id number] [place] [address] [facility] [place] Performed By: #### 2 4331-1, 7, EXEPSA, 3015-3 ####[facility] LABCLIA [id number] [address] [address] [place] Cholesterol.total/ Cholesterol in HDL [Mass ratio] 5.37 {ratio} High <5.10 [facility] Comment on above: Order Comment: Speci men Type: BLOOD SPECIMENOrdering Facility: [facility] Address: [address] [place] [address] Performed By: #### E XELINDAA, 60330-0, 3023-12, 3 ####[facility] LABCLIA [id number] [place] [address] [place] Performed By: #### 2 4331-1, 7, MARY, 3015- ####[facility] LABCLIA [id number] [address] [address] [place] FASTING TIME 12 hrs Normal [facility] Comment on above: Order Comment: Speci men Type: BLOOD SPECIMENOrdering Facility: [facility] Address: [address] [place], [place] [address] Performed By: #### E XEPSA, 56412-0, 3023-12, 3015-3 ####[facility] LABCLIA [id number] [address] [address] [place] Performed By: #### 2 4331-1, 7, EXEPSA, 3015-3 ####[facility] LABCLIA [id number] [address] [address] [place] Triglyceride [Mass/Vol] 107 mg/dL Normal <150 [facility] Comment on above: Order Comment: Speci men Type: BLOOD SPECIMENOrdering Facility: [facility] Address: [address] [place] [address] Result Comment: <150 mg/dL, Normal 150-199 mg/dL, Borderline high 200-499 mg/dL, High >499 mg/dL, Very high Performed By: #### E XEPSA, 27066-1, 4-7, 3016-3 ####[facility] LABCLIA [id number] [place] [address] [place] Performed By: #### 2 4331-1, 3023-7, EXEPSA, 3016-3 ####[facility] LABCLIA [id number] [place] [address] [place] T4 Free SerPl-mCncon 024 Free T4 [Mass/Vol] 1.1 ng/dL Normal 0.9-1.7 [facility] Comment on above: Order Comment: Speci men Type: BLOOD SPECIMENOrdering Facility: [facility] Address: [address] [place] [address] Performed By: #### E XEPSA, 16637-1, 7, 6-3 ####[facility] LABCLIA [id number] [place] [address] [place] Performed By: #### 2 4331-1, 7, EXEPSA, 6-3 ####[facility] LABCLIA [id number] [address] [place] TESTOSTERONE BIOAVAILABLEon 10-12-2023 Albumin [Mass/Vol] 4.3 g/dL Normal 3.9-4.9 [facility] Comment on above: Order Comment: Speci men Type: BLOOD SPECIMENOrdering Facility: [facility] Address: [address] [place] [address] Performed By: #### Ricardo TESTO, 27730-7, 17729-8 ####[facility] LABCLIA [id number] [id number] [address] [place] Sex hormone binding globulin [Moles/Vol] 41 nmol/L Normal 14-82 [facility] Comment on above: Order Comment: Speci men Type: BLOOD SPECIMENOrdering Facility: [facility] Address: [address] [place] [address] Performed By: #### Ricardo TESTO, 65609-3, 71477-4 ####[facility] LABCLIA [id number] [place] [address] [place] Testosterone [Mass/Vol] 466 ng/dL Normal 193-824 [facility] Comment on above: Order Comment: Speci men Type: BLOOD SPECIMENOrdering Facility: [facility] Address: [address] [place] [address] Result Comment: A te stosterone level in the 193-320 ng/dL range with associated clinical symptoms is considered low and may indicate hypogonadism (from [facility] 2010 363:123-135). Results >320 ng/dL are considered normal. Performed By: #### Ricardo TESTO, 00549-8, 84352-2 ####[facility] LABCLIA [id number] [place] [address] [place] TSTBIO 212.5 ng/dL Normal 105.0-324.0 [facility] Comment on above: Order Comment: Speci men Type: BLOOD SPECIMENOrdering Facility: [facility] Address: [address] [place] [address] Performed By: #### Ricardo COPPOLAO, 24365-3, 78533-3 ####[facility] LABCLIA [id number] [place] [address] [place] TSTFRC 78.8 pg/mL Normal 38.0-120.0 [facility] Comment on above: Order Comment: Speci men Type: BLOOD SPECIMENOrdering Facility: [facility] Address: [address] [place] [address] Performed By: #### Ricardo TESTO, 47063-6, 17697-2 ####[facility] LABCLIA [id number] [place] [address] [place] TSTFRP 1.7 % Normal 1.1-2.6 [facility] Comment on above: Order Comment: Speci men Type: BLOOD SPECIMENOrdering Facility: [facility] Address: [address] [place] [address] Performed By: #### Ricardo TESTO, 41669-9, 06766-1 ####[facility] LABCLIA [id number] [place] [address] [place] TSH SerPl-aCncon 10-12-2023 TSH Qn 2.030 m[IU]/L Normal 0.270-4.200 [facility] Comment on above: Order Comment: Speci men Type: BLOOD SPECIMENOrdering Facility: [facility] Address: [address] [place] [address] Performed By: #### E XEPSA, 24039-3, 3024-7, 3016-3 ####[facility] LABCLIA [id number] [place] [address] [place] Performed By: #### 2 4331-1, 3024-7, EXEPSA, 3016-3 ####[facility] LABCLIA [id number] [place] [address] [place] Urate SerPl-mCncon 4 Urate [Mass/Vol] 6.6 mg/dL Normal 4.0-8.1 [facility] Comment on above: Order Comment: Speci men Type: BLOOD SPECIMENOrdering Facility: [facility] Address: [address] [place] [address] Performed By: #### 2 276-4, 91708-8, 2324-2, 3084-1, 20873-0 ####[facility] LABCLIA [id number] [address] [place] Performed By: #### 2 276-4, 2324-2, 40022-5, 96070-8, 3084-1 ####[facility] LABCLIA [id number] [place] [id number] [place] VASCULAR SCREENING TESTon VASCULAR SCREENING TEST Non-Invasive Vascular Laboratory [facility] A17 Vascular Screening Bilateral/Complete Date of service/time: 10/12/2023 7:31:05 AM Name: MR. HAKAN DUARTE Date of : 1975 Age: 47 years Gender: M Clinical Indication Screening for peripheral vascular disease. Cardiovascular Risk Factors History of hypertension: No History of diabetes mellitus: No History of cigarettes smoking (> 100 cigarettes in the lifetime): No Known coronary artery disease: No Post menopausal woman: n/a Family history of premature coronary artery disease: Yes FINDINGS -------- CAROTID Family history of stroke: No Patient has had a stroke or TIA: No Patient is known to have stenosis of one of the carotid arteries: No Patient is known to have a blockage of one of the carotid arteries: No Right common carotid artery distal: PSV: 79 cm/s. EDV: 18 cm/s. Mild plaque present. Right internal carotid artery origin: PSV: 69 cm/s. EDV: 19 cm/s. No plaque seen. Right internal carotid artery proximal: PSV: 76 cm/s. EDV: 30 cm/s. No plaque seen. Right external carotid artery origin: PSV: 88 cm/s. EDV: 12 cm/s. No plaque seen. Left common carotid artery distal: PSV: 86 cm/s. EDV: 21 cm/s. No plaque seen. Left internal carotid artery origin: PSV: 63 cm/s. EDV: 17 cm/s. No plaque seen. Left internal carotid artery proximal: PSV: 85 cm/s. EDV: 33 cm/s. No plaque seen. Left external carotid artery origin: PSV: 108 cm/s. EDV: 12 cm/s. No plaque seen. AORTA Family history of abdominal aortic aneurysm: No Patient is known to have an abdominal aortic aneurysm: No History of cigarettes smoking (> 100 cigarettes in the lifetime): No Aorta at renals: PSV: 93 cm/s. EDV: 16 cm/s. No plaque seen. Aorta mid: 1.95 cm x 1.90 cm No plaque seen. ANKLE BRACHIAL INDEX (CAREN) Known peripheral artery disease: No Open wounds on the legs: No Pain in calves, thighs, or buttocks when walking that resolves with rest: No Right Pressures Brachial: 128 mmHg Ankle dorsalis pedis: 150 mmHg CAREN: 1.15 Ankle posterior tibial: 160 mmHg CAREN: 1.23 Left Pressures Brachial: 130 mmHg Ankle dorsalis pedis: 140 mmHg CAREN: 1.08 Ankle posterior tibial: 150 mmHg CAREN: 1.15 IMPRESSION Follow up with your physician regarding the results of the study is advised. CAROTID Right carotid: Atherosclerotic plaque is visualized in at least one of the arteries evaluated (see above); however, there is no significant stenosis of the internal carotid artery. Left carotid: No atherosclerotic plaque visualized. Vessels are normal. AORTA No evidence of abdominal aortic aneurysm. Limited visualization at proximal due to bowel gas. ANKLE BRACHIAL INDEX (CAREN) Right ankle brachial index: 1.23 Normal ankle brachial index at rest in the right leg. Left ankle brachial index: 1.15 Normal ankle brachial index at rest in the left leg. Technologist: Yesy Salgado RVT Ordering physician: REBEKAH JOHNSTON Interpreting physician: Marck Baca DO, RVT, RPVI Final CC [employer] : [id number] [employer] See Link below for Image Normal [facility] Vit B12 SerPl-ncon 024 Cobalamin (Vitamin B12) [Mass/Vol] 835 pg/mL Normal 232-1245 [facility] Comment on above: Order Comment: Speci men Type: BLOOD SPECIMENOrdering Facility: [facility] Address: [address] [place] [address] Performed By: #### 3 1201-7, 2132-9, 54155-6, 09257-6 ####[facility] LABCLIA [id number] [id number] [id number] [place] CNPDelmy 10-06-2023 CNPN Telephone (EXEPMN) HAKAN DUARTE ([id number]) 1975 M Date Time Provider Department 10/06/23 REBEKAH JOHNSTON EXEPMN During your visit today, we recorded the following information about you: Edison Bhagat, RN 10/06/2023 2:45 PM Signed Previsit call completed. confirmed. Reviewed department guidelines/changes with pt in regard to covid 19-pt verbalized understanding. Additional consults: Derm -scheduled already Q: will email Dr Johnston - patient checked himself into [facility] for alcohol abuse in August and was discharged on October 02. He wanted you to know in case his lab works returns askew. Allergies As of Date: 10/06/2023 Noted Allergy Reaction CELEBREX (CELECOXIB) 02/26/2008 2 - Rash Date Reviewed: 03/06/2010 Reviewed by: Monica Dasilva Lpn - Fully Assessed Reason for Visit: Nurse Triage Call [185] Cmt: On License Of [facility] 10/11 Prescriptions as of 10/07/2023 - fluoxetine 20 mg ORAL capsule Take 1 capsule by mouth once daily. - ibuprofen 800 mg ORAL tablet Take one(1) tablet every eight(8) hours with food as needed for pain. - Pseudoephedrine-Guaifenesin 120-1,200 mg ORAL Tb12 Take one (1) tablet every twelve (12) hours as directed for sinus cogestion - omeprazole(PRILOSEC 40 MG CAP) Take one(1) capsule daily. Problem List As Of Date 10/06/2023 Noted Resolved STERILIZATION [Z30.2] 07/04/2008 Chest Pain [R07.9] 05/02/2009 GERD (Gastroesophageal Reflux Disease) [K21.9] 05/02/2009 Anxiety [F41.9] 10/21/2009 Encounter Status:Closed by EDISON BHAGAT on 10/07/23 [facility] Telephone (EXEPMN) HAKAN DUARTE ([id number]) 1975 M Date Time Provider Department 10/06/23 REBEKAH JOHNSTON EXCEDRIC During your visit today, we recorded the following information about you: Edison Bhagat RN 10/06/2023 2:31 PM Signed Attempted pre-visit call for [place] physical on 10/11 . LVM for patient to call [facility] nurse line. Allergies As of Date: 10/06/2023 Noted Allergy Reaction CELEBREX (CELECOXIB) 02/26/2008 2 - Rash Date Reviewed: 03/06/2010 Reviewed by: Monica Dasilva Lpn - Fully Assessed Reason for Visit: Nurse Triage Call [185] Cmt: [place] 10/11 Prescriptions as of 10/06/2023 - fluoxetine 20 mg ORAL capsule Take 1 capsule by mouth once daily. - ibuprofen 800 mg ORAL tablet Take one(1) tablet every eight(8) hours with food as needed for pain. - Pseudoephedrine-Guaifenesin 120-1,200 mg ORAL Tb12 Take one (1) tablet every twelve (12) hours as directed for sinus cogestion - omeprazole(PRILOSEC 40 MG CAP) Take one(1) capsule daily. Problem List As Of Date 10/06/2023 Noted Resolved STERILIZATION [Z30.2] 07/04/2008 Chest Pain [R07.9] 05/02/2009 GERD (Gastroesophageal Reflux Disease) [K21.9] 05/02/2009 Anxiety [F41.9] 10/21/2009 Encounter Status:Closed by EDISON BHAGAT on 10/06/23 [facility] 09-15-2023 CNPN Telephone (EXEPMN) HAKAN DUARTE ([id number]) 1975 M Date Time Provider Department 09/15/23 REBEKAH [facility] During your visit today, we recorded the following information about you: Edison Bhagat, RN 09/15/2023 3:24 PM Signed Attempted pre-visit call for [place] physical on 10/11 . LVM for patient to call [facility] nurse line. Allergies As of Date: 09/15/2023 Noted Allergy Reaction CELEBREX (CELECOXIB) 02/26/2008 2 - Rash Date Reviewed: 03/06/2010 Reviewed by: Monica Dasilva Lpn - Fully Assessed Reason for Visit: Nurse Triage Call [185] Cmt: [place] 10/11 Prescriptions as of 09/15/2023 - fluoxetine 20 mg ORAL capsule Take 1 capsule by mouth once daily. - ibuprofen 800 mg ORAL tablet Take one(1) tablet every eight(8) hours with food as needed for pain. - Pseudoephedrine-Guaifenesin 120-1,200 mg ORAL Tb12 Take one (1) tablet every twelve (12) hours as directed for sinus cogestion - omeprazole(PRILOSEC 40 MG CAP) Take one(1) capsule daily. Problem List As Of Date 09/15/2023 Noted Resolved STERILIZATION [Z30.2] 07/04/2008 Chest Pain [R07.9] 05/02/2009 GERD (Gastroesophageal Reflux Disease) [K21.9] 05/02/2009 Anxiety [F41.9] 10/21/2009 Encounter Status:Closed by EDISON BHAGAT on 09/15/[address] [facility] Krystyna 09-02-2023 [facility] HAKAN DUARTE ([id number]) 1975 Date Time Provider Department 09/02/23 [place] REBEKAHMary [facility] [facility] During your visit today, we recorded the following information about you: Sherrie Tovar RN 09/02/2023 11:22 AM Signed Pre-visit call attempted. Left VM message for patient to call A[facility] to review schedule for [facility] Exam. Sherrie Tovar RN 09/27/2023 9:03 AM Signed Pre-visit call attempted. Left VM message for patient to call [facility] to review schedule for [facility] Exam. Allergies As of Date: 09/02/2023 Noted Allergy Reaction CELEBREX (CELECOXIB) 02/26/2008 2 - Rash Date Reviewed: 03/06/2010 Reviewed by: Monica Dasilva Lpn - Fully Assessed Reason for Visit: Nurse Triage Call [185] Cmt: [facility] Prescriptions as of 09/27/2023 - fluoxetine 20 mg ORAL capsule Take 1 capsule by mouth once daily. - ibuprofen 800 mg ORAL tablet Take one(1) tablet every eight(8) hours with food as needed for pain. - Pseudoephedrine-Guaifenesin 120-1,200 mg ORAL Tb12 Take one (1) tablet every twelve (12) hours as directed for sinus cogestion - omeprazole(PRILOSEC 40 MG CAP) Take one(1) capsule daily. Problem List As Of Date 09/02/2023 Noted Resolved STERILIZATION [Z30.2] 07/04/2008 Chest Pain [R07.9] 05/02/2009 GERD (Gastroesophageal Reflux Disease) [K21.9] 05/02/2009 Anxiety [F41.9] 10/21/2009 Encounter Status:Closed by SHERRIE TOVAR on 09/02/23 Normal [facility] Absolute lymphocyte counton 04-02-2022 Lymphocytes Auto (Unsp spec) [#/Vol] 1.67 10*3/uL 0.83-4.51 [facility] Work Phone: Basophil percentageon 2021 Basophils/100 WBC (Bld) 0.8 % 0-1 [facility] Work Phone: Bilirubin [Mass/Vol] 0.70 mg/dL 0.20-1.00 [facility] Work Phone: Comment on above: For patients on eltr ombopag therapy, use of Dimension Crosby TBIL is not recommended. Chloride [Moles/Vol] 105 mmol/L 98-107 [facility] Work Phone: Eosinophils/100 WBC (Bld) 1.8 % 0-5 [facility] Work Phone: Glucose [Mass/Vol] 94 mg/dL 74-106 [facility] Work Phone: Neutrophils (Bld) [#/Vol] 3.7 10*3/uL 2.0-7.7 [facility] Work Phone: Neutrophils/100 WBC (Bld) 60.9 % 47-70 [facility] Work Phone: Potassium [Moles/Vol] 4.4 mmol/L 3.5-5.1 [facility] Work Phone: Protein [Mass/Vol] 7.7 g/dL 6.4-8.2 [facility] Work Phone: Sodium [Moles/Vol] 137 mmol/L 136-145 [facility] Work Phone: WBC (Bld) [#/Vol] 6.1 10*3/uL 4.4-11.0 [facility] Work Phone: Blood erythrocytes count (nu mber/volume)on 04-02-2022 RBC (Bld) [#/Vol] 4.89 10*6/uL 4.6-6.2 [facility] Work Phone: Blood hemoglobin measurement (mass/volume)on 04-02-2022 Hemoglobin (Bld) [Mass/Vol] 15.9 g/dL 13.0-16.5 [facility] Work Phone: Blood lymphocytes/100 leukoc yteson 04-02-2022 Lymphocytes/100 WBC (Bld) 27.2 % 19-41 [facility] Work Phone: Blood monocytes/100 leukocyt eson 04-02-2022 Monocytes/100 WBC (Bld) 9.1 % 0-10 [facility] Work Phone: Blood platelet mean volumeon 04-02-2022 Platelet mean volume (Bld) [Entitic vol] 9.9 fL 6.2-12.0 [facility] Work Phone: Determination of erythrocyte mean corpuscular volume (MCV)on 04-02-2022 MCV (RBC) [Entitic vol] 87.9 fL 80-94 [facility] Work Phone: Erythrocyte sedimentation ra luz maria 04-02-2022 ESR (Bld) [Velocity] 25 mm/h 0-20 [facility] Work Phone: Hematocrit Auto (Bld) [Volum e fraction]on 04-02-2022 Hematocrit (Bld) [Volume fraction] 43.0 % 40-54 [facility] Work Phone: Iron measurement (mass/mass) on 04-02-2022 Iron (Unsp spec) [Mass/Mass] 72 ug/dL 65-175 [facility] Work Phone: Laboratory - Chemistry and C hemistry - challengeon 04-02-2022 ALP [Catalytic activity/Vol] 55 U/L 45-117 [facility] Work Phone: ALT [Catalytic activity/Vol] 38 U/L 16-61 [facility] Work Phone: Amylase [Catalytic activity/Vol] 23 U/L 15-85 [facility] Work Phone: CO2 [Moles/Vol] 28.0 mmol/L 21.0-32.0 [facility] Work Phone: Globulin (S) [Mass/Vol] 3.9 g/dL 2.2-4.2 [facility] Work Phone: Urea nitrogen/Creatinin e [Mass ratio] 16.8 mg/mg 10-20 [facility] Work Phone: Laboratory - Hematology and Cell countson 04-02-2022 Erythrocyte distribution width (RBC) [Entitic vol] 37.9 fL 35.1-43.9 [facility] Work Phone: Erythrocyte distribution width (RBC) [Ratio] 11.8 % 11.6-14.6 [facility] Work Phone: Immature granulocytes/100 WBC (Bld) 0.200 % 0.0-0.9 [facility] Work Phone: Comment on above: IG% - Immature Granu locytes (promyelocytes, myelocytes and metamyelocytes) > 1% indicates that a LEFT SHIFT is Present. MCH (RBC) [Entitic mass] 32.5 pg 27.0-32.0 [facility] Work Phone: Nucleated RBC/100 WBC (Bld) [Ratio] 0 % 0-5 [facility] Work Phone: MCHC Auto (RBC) [Mass/Vol]on 04-02-2022 MCHC (RBC) [Mass/Vol] 37.0 g/dL 32-36 [facility] Work Phone: No Panel Informationon 04-02 Estimated GFR (MDRD) Amer 129 mL/min >60 [facility] Work Phone: Comment on above: GFR Calc Estimated GFR (MDRD) Non-Af Amer 107 mL/min >60 [facility] Work Phone: Comment on above: Non- GFR Calc Thyroid Stimulating Hormone (TSH) 1.09 uIU/mL 0.358-3.74 [facility] Work Phone: Vitamin D 25-Hydroxy 38.6 ng/mL [facility] Work Phone: Comment on above: Vitamin D 25(OH) Sta tus Range Deficiency <20 ng/mL (50nmol/L) Insufficiency 20 - 30 ng/mL (50 - 75 nmol/L) Sufficiency 30 - 100 ng/mL (75 - 250 nmol/L) Toxicity >100 ng/mL (>250 nmol/L) Platelets bldon 04-02-2022 Platelets (Bld) [#/Vol] 259 10*3/uL 150-450 [facility] Work Phone: Serum or plasma C reactive p rotein measurement (mass/volume)on 04-02-2022 CRP [Mass/Vol] mg/L 0.0-3.0 [facility] Work Phone: Comment on above: C-Reactive Protein ( CRP) provides useful information for thediagnosis, therapy and monitoring of inflammatory processesand associated diseases. For the evaluation of Relative Riskfor Cardiovascular Disease, a High Sensitivity CRP (HSCRP)should be ordered. Serum or plasma albumin saadia urement (mass/volume)on 04-02-2022 Albumin [Mass/Vol] 3.8 g/dL 3.2-5.0 [facility] Work Phone: Serum or plasma albumin/glob ulin mass ratioon 04-02-2022 Albumin/Globulin [Mass ratio] 1.0 {ratio} 0.9-2.4 [facility] Work Phone: Serum or plasma calcium saadia urement (mass/volume)on 04-02-2022 Calcium [Mass/Vol] 8.8 mg/dL 8.5-10.1 [facility] Work Phone: Serum or plasma creatinine m easurement (mass/volume)on 04-02-2022 Creatinine [Mass/Vol] 0.83 mg/dL 0.70-1.30 [facility] Work Phone: Comment on above: The validity of the calculated GFR & GFRAA in patients over 70 years has not been determined. Clinical correlation is essential. Serum or plasma ferritin jose martin surement (mass/volume)on 04-02-2022 Ferritin [Mass/Vol] 164 ng/mL 26-388 [facility] Work Phone: Serum or plasma urea nitroge n measurement (mass/volume)on 04-02-2022 Urea nitrogen [Mass/Vol] 14 mg/dL 7-18 [facility] Work Phone: [phone] Thin prep Papanicolaou smear with manual screeningon 04-02-2022 Thin prep Papanicolaou smear with manual screening 22 U/L 15-37 [facility] Work Phone: [phone] Thin prep Papanicolaou smear with manual screening 4 5-15 [facility] Work Phone: Vital Signs Date Time Vital Sign Value Performing Clinician Faci lity 03-28-2024 12:33-0400 Diastolic blood pressure 77 mm[Hg] Rocio Liz MD Work Phone: [facility] 03-28-2024 12:33-0400 Heart rate 55 /min Rocio Liz MD Work Phone: [facility] 03-28-2024 12:33-0400 Respiratory rate 18 /min Rocio Liz MD Work Phone: [facility] 03-28-2024 12:33-0400 SaO2% (BldA) [Mass fraction] 98 % Rocio Liz MD Work Phone: [facility] 03-28-2024 12:33-0400 Systolic blood pressure 119 mm[Hg] Rocio Liz MD Work Phone: [facility] 03-28-2024 12:08-0400 Body temperature 97.3 [degF] Rocio Liz MD Work Phone: [facility] 03-28-2024 10:30-0400 Body height 182.9 cm Rocio Liz MD Work Phone: [facility] 03-28-2024 10:30-0400 Body mass index (BMI) [Ratio] 24.41 kg/m2 Rocio Liz MD Work Phone: [facility] 03-28-2024 10:30-0400 Body weight 81.65 kg Rocio Liz MD Work Phone: [facility] 03-02-2024 09:53-0400 Diastolic blood pressure 73 mm[Hg] Isacc Maria MD Work Phone: [facility] 03-02-2024 09:53-0400 Heart rate 54 /min Isacc Maria MD Work Phone: [facility] 03-02-2024 09:53-0400 Systolic blood pressure 117 mm[Hg] Isacc Maria MD Work Phone: [facility] 03-02-2024 09:51-0400 Body height 182.9 cm Isacc Maria MD Work Phone: [facility] 03-02-2024 09:51-0400 Body mass index (BMI) [Ratio] 24.77 kg/m2 Isacc Maria MD Work Phone: [facility] 03-02-2024 09:51-0400 Body weight 82.83 kg Isacc Maria MD Work Phone: [facility] 10-12-2023 15:13-0400 Body height 182.9 cm [facility] 10-12-2023 15:13-0400 Body mass index (BMI) [Ratio] 25.24 kg/m2 [facility] 10-12-2023 15:13-0400 Body weight 84.41 kg [facility] 10-12-2023 08:17-0400 Body height 182 cm Rebekah Johnston MD Work Phone: [facility] 10-12-2023 08:17-0400 Body mass index (BMI) [Ratio] 25.87 kg/m2 Rebekah Johnston MD Work Phone: [facility] 10-12-2023 08:17-0400 Body temperature 98.01 [degF] Rebekah Johnston MD Work Phone: [facility] 10-12-2023 08:17-0400 Body weight 85.7 kg Rebekah Johnston MD Work Phone: [facility] 10-12-2023 08:17-0400 Diastolic blood pressure 78 mm[Hg] Rebekah Johnston MD Work Phone: [facility] 10-12-2023 08:17-0400 Heart rate 61 /min Rebekah Johnston MD Work Phone: [facility] 10-12-2023 08:17-0400 Systolic blood pressure 128 mm[Hg] Rebekah Johnston MD Work Phone: [facility] Encounters Encounter Date Encounter Type Care Provider Facility Start: 11-28-2024 ambulatory [facility] lity:[facility] Start: 10-03-2024 End: 10-03-2024 ambulatory [facility] Facility:[facility] Start: 09-04-2024 ambulatory [facility] lity:[facility] Start: 03-28-2024 ambulatory REBEKAHMary JOHNSTON Fac ility:[facility] Start: 03-28-2024 End: 03-28-2024 Subsequent hospital visit by physician Rocio Liz MD Work Phone: [facility] Endoscopy Comment on above: Colon cancer screeni ng [Z12.11] Start: 03-02-2024 End: 03-02-2024 Office consultation new/estab patient 60 min Isacc Maria MD Work Phone: Preventive Cardiology Comment on above: Abnormal finding on EKG; Multifocal ectopic atrial beats; Agatston coronary artery calcium score between 100 and 199; Mixed hyperlipidemia; Dyslipidemia (high LDL; low HDL) Start: 03-02-2024 End: 03-02-2024 ambulatory ISACC MARIA Facility:[facility] Start: 11-21-2023 Telephone encounter Parth van MD Work Phone: General Surgery Comment on above: Outpatient Colonosco py Start: 11-21-2023 ambulatory PARTH PANDYA [facility] Start: 10-28-2023 Orders Only Isacc Maria MD Work Phone: Preventive Cardiology Comment on above: Hyperlipidemia, unsp ecified hyperlipidemia type (Primary Dx); Agatston coronary artery calcium score between 100 and 199; Dyslipidemia Start: 10-12-2023 End: 10-12-2023 Subsequent hospital visit by physician Ct [address] Qb (I-Stat) Radiology Comment on above: Encounter for screen ing for cardiovascular disorders [Z13.6] Start: 10-12-2023 Encounter for genera l adult medical examination without abnormal findings REBEKAH JOHNSTON [facility] Start: 10-12-2023 Encounter for genera l adult medical examination without abnormal findings REBEKAH JOHNSTON [facility] Start: 10-12-2023 End: 10-12-2023 Patient encounter procedure Sloane WEEMS Work Phone: Audiology Comment on above: Encounter for hearin g screening without abnormal findings (Primary Dx) Nutrition Assessment ; Patient Education Inflamed seborrheic keratosis (Primary Dx); Scar condition and fibrosis of skin; Skin exam, screening for cancer Encounter for wellri ss examination in adult (Primary Dx); Encounter for HCV screening test for low risk patient; Screening for HIV without presence of risk factors; Need for vaccination; Colon cancer screening; Abnormal finding on EKG; Multifocal ectopic atrial beats; Carotid artery plaque, right; Agatston coronary artery calcium score between 100 and 199; Mixed hyperlipidemia; Dyslipidemia (high LDL; low HDL); Pulmonary granuloma (HCC); Pulmonary nodule seen on imaging study Wellness examination (Primary Dx) Start: 10-12-2023 End: 10-12-2023 Patient encounter status Sloane WEEMS Work Phone: [facility] Work Phone: Start: 10-12-2023 Encounter for other specified special examinations REBEKAH JOHNSTON [facility] Start: 10-12-2023 End: 10-12-2023 ambulatory Well [employer] Work Phone: Internal Medicine Start: 10-06-2023 Telephone encounter Rebekah Johnston MD Work Phone: Internal Medicine Comment on above: Nurse Triage Call (E PNMsoft 10/11) Start: 10-06-2023 ambulatory REBEKAH JOHNSTON [facility] Start: 09-15-2023 Telephone encounter Rebekah Johnston MD Work Phone: Internal Medicine Comment on above: Nurse Triage Call (E PNMsoft 10/11) Start: 09-15-2023 ambulatory REBEKAH JOHNSTON [facility] Start: 09-02-2023 ambulatory REBEKAH JOHNSTON [facility] Start: 08-30-2023 End: 09-05-2023 ambulatory Facility:[id number] Start: 08-30-2023 End: 09-04-2023 Subsequent hospital visit by physician Lab Referred Work Phone: [facility] Comment on above: F10.20 Start: 04-02-2022 End: 04-02-2022 ambulatory [facility] Work Phone: Start: 04-02-2022 End: 04-02-2022 Patient encounter procedure [facility] [place] Procedures Date Procedure Procedure Detail Performing Clinician Start: 03-28-2024 Colonoscopy flx dx w /collj spec when pfrmd Rebekah Johnston MD Work Phone: Start: 03-28-2024 Colonoscopy Rocio Liz MD Work Phone: Start: 10-12-2023 Unlisted computed tomography procedure Rebekah Johnston MD Work Phone: Start: 10-12-2023 Adult depression scr eening assessment Isacc Maria MD Work Phone: Start: 10-12-2023 Lipid 1996 panel - S gabriele or Plasma Sloane WEEMS Work Phone: Start: 04-22-2009 Lipid 1996 panel - S gabriele or Plasma Lab Referred Work Phone: Plan of Treatment Date Care Activity Detail Author Start: 10-11-2033 Urine microalbumin profile DTaP,Tdap,Td Vaccine (2 - Td or Tdap) [facility] Start: 10-11-2028 Lipid panel Lipid Screening [facility] Start: 10-11-2026 Diabetes Screening Diabetes Screenin g [facility] Start: 03-28-2025 Screening for malign ant neoplasm of colon [facility] Start: 03-02-2025 End: 06-01-2025 Comprehensive metabolic 2000 panel - Serum or Plasma COMPREHENSIVE METABOLIC PANEL Lab Routine Agatston coronary artery calcium score between 100 and 199 Expected: 03/02/2025, Expires: 06/01/2025 [facility] Comment on above: Expected: 03/02/2025 , Expires: 06/01/2025 Start: 03-02-2025 End: 06-01-2025 Lipid 1996 panel - Serum or Plasma LIPID PANEL BASIC Lab Routine Agatston coronary artery calcium score between 100 and 199 Expected: 03/02/2025, Expires: 06/01/2025 [facility] Comment on above: Expected: 03/02/2025 , Expires: 06/01/2025 Start: 10-24-2024 Covid-19 Vaccine () Covid-19 Vaccine () [facility] Comment on above: Postponed from 02/04 (Declined at this time) Start: 10-11-2024 Depression Screening Depression Scre ening [facility] Start: 10-11-2024 Hepatitis B surface antibody level LDL Cholesterol [facility] Start: 10-04-2024 Hepatitis B Vaccine (1 of 3 - 19+ 3-dose series) Hepatitis B Vaccine (1 of 3 - 19+ 3-dose series) [facility] Comment on above: Postponed from 11/17 (Postponed To Appropriate Date) Start: 03-28-2024 End: 03-28-2024 Patient encounter procedure [facility] Comment on above: NEEDS MAC ANESTHESIA NOT OKAY FOR [facility] OR [facility] - ONLY [place] Colon cancer screening [Z12.11] Start: 03-02-2024 End: 06-01-2024 Apolipoprotein B [Mass/volume] in Serum or Plasma APOLIPOPROTEIN B BLD Lab Routine Dyslipidemia (high LDL; low HDL) Expected: 03/02/2024, Expires: 06/01/2024 [facility] Comment on above: Expected: 03/02/2024 , Expires: 06/01/2024 Start: 03-02-2024 End: 06-01-2024 Hepatic function 2000 panel - Serum or Plasma HEPATIC FUNCTION PNL Lab Routine Dyslipidemia (high LDL; low HDL) Expected: 03/02/2024, Expires: 06/01/2024 [facility] Work Phone: Comment on above: Expected: 03/02/2024 , Expires: 06/01/2024 Start: 03-02-2024 End: 03-02-2024 Patient encounter procedure 03/02/2024 9:45 AM EDT Office Visit Preventive Cardiology [address] [id number] Isacc Maria MD [address] [facility] [place] [address] Abnormal finding on EKG [R94.31] Preventive Cardiology Comment on above: Abnormal finding on EKG [R94.31] Start: 03-02-2024 End: 03-02-2024 ambulatory 03/02/2024 8:45 AM EDT Results Only Cardiology [address] [id number] Abnormal finding on EKG [R94.31] Cardiology Comment on above: Abnormal finding on EKG [R94.31] Start: 02-05-2024 Covid-19 Vaccine ( season) Covid-19 Vaccine ( season) [facility] Start: 02-05-2024 Influenza vaccination [facility] Start: 01-25-2024 End: 04-25-2024 Lipid 1996 panel - Serum or Plasma LIPID PANEL BASIC Lab Routine Agatston coronary artery calcium score between 100 and 199 Mixed hyperlipidemia Expected: 01/25/2024, Expires: 04/25/2024 [facility] Comment on above: Expected: 01/25/2024 , Expires: 04/25/2024 Start: 10-12-2023 End: 10-12-2023 ambulatory 10/12/2023 11:50 AM EDT Results Only Cardiology [address] [address] hold exec bill Cardiology Comment on above: hold exec bill Start: 10-12-2023 End: 10-12-2023 Nursing evaluation of patient and report 10/12/2023 7:45 AM EDT Nurse Visit Internal Medicine [address] [address] [address], Bp Jonathan Intm Preventive [address] [place] [address] hold exec bill Internal Medicine Comment on above: hold exec bill Start: 10-12-2023 End: 10-12-2023 ambulatory 10/12/2023 7:15 AM EDT Results Only [facility] [address] [address] hold exec bill [facility] Comment on above: hold exec bill Start: 10-12-2023 End: 10-12-2023 Patient encounter procedure Internal Medicine Comment on above: Dia hold exec bill CERTIFIED MERI BEEF skin check-exect [facility] SCAN INSURANCE CARD AND PHOTO ID, NPP Start: 06-06-2023 Behavioral Health Screening Behavioral Health Screening [facility] Start: 06-06-2023 Depression Assessment Depression Ass essment [facility] Start: 02-04-2023 Covid-19 Vaccine ( season) Covid-19 Vaccine ( season) [facility] Start: 02-04-2023 Covid-19 Vaccine () Covid-19 Vaccine () [facility] Start: 2022 Diabetes Screening Diabetes Screenin g [facility] Start: 2022 Screening for malign ant neoplasm of colon [facility] Start: 04-22-2014 Lipid panel Lipid Screening [facility] Start: 1996 Hepatitis B Vaccine (1 of 3 - 19+ 3-dose series) Hepatitis B Vaccine (1 of 3 - 19+ 3-dose series) [facility] Start: 1996 Urine microalbumin profile DTaP,Tdap,Td Vaccine (1 - Tdap) [facility] Start: 11-18-1995 Annual PCP Team Strip Cleaner daniela Disease Visit Annual PCP Team Chronic Disease Visit [facility] Start: 11-18-1995 Hepatitis C screening Hepatitis C Sc aletha [facility] Start: 11-18-1995 HIV screening HIV Screening [facility] End: 10-27-2024 ECG COMPLETE ECG COMPLETE ECG Routine Hyperlipidemia, unspecified hyperlipidemia type Agatston coronary artery calcium score between 100 and 199 Dyslipidemia 1 Occurrences starting 10/28/2023 until 10/27/2024 [facility] Work Phone: Comment on above: 1 Occurrences starti ng 10/28/2023 until 10/27/2024 End: 10-11-2024 Screening colonoscopy COLONOSCOPY SCREENING Endoscopy Routine Colon cancer screening 1 Occurrences starting 10/12/2023 until 10/11/2024 [facility] Work Phone: Comment on above: 1 Occurrences starti ng 10/12/2023 until 10/11/2024 [facility] Immunizations Immunization Date Immunization Notes Care Provider Kathleen khan 10-12-2023 tetanus toxoid, redu margarito diphtheria toxoid, and acellular pertussis vaccine, adsorbed Sloane Odina FAUSTINA Work Phone: [facility] 10-11-2023 tetanus toxoid, redu margarito diphtheria toxoid, and acellular pertussis vaccine, adsorbed Rebekah Johnston MD Work Phone: [facility] Payers Date Payer Category Payer Self-pay [id number] 2019 Private Health Insurance AEEduardABE Hernandez [facility] [id number] 2019-Present [phone] [address] [place] [address] O [id number] 2019 Private Health Insurance [id number] 2014 Private Health Insurance [employer] [id number] 2004 Unknown [id number] Unknown [id number] Unknown [id number] Unknown [id number] Unknown [id number] Social History Date Type Detail Facility [facility]: [facility] Work Phone: Start: 10-03-2013 Rare [facility] Work Phone: Start: 10-03-2013 Spouse/ Signif icant Other [facility] Work Phone: Start: 10-03-2013 Non-smoker [facility] [facility] Work Phone[facility] Start: 1975 Sex Assigned At Male [facility] Work Phone: Start: 10-06-2023 [facility] Start: 06-16-2010 End: 10-12-2023 Alcohol intake Current drinker of alcohol (finding) [facility] Start: 1975 Sex Assigned At Not on file [facility] Start: 10-06-2023 End: 03-02-2024 Gender identity Not on file [facility] Start: 10-06-2023 Tobacco use and exposure Smokeless tobacco non-user [facility] Start: 10-06-2023 End: 03-02-2024 History of Social function [facility] Start: 10-06-2023 Alcohol Comment alcohol rehab 08/2023 [facility] Adult Depression Screening Assessment 0 [facility] Start: 10-12-2023 Education 17 [facility] Start: 10-25-2023 End: 03-02-2024 Alcohol intake Ex-drinker (finding) [facility] Goals Date Patient Goal Desired Activity /State Personal health goal Clinical Notes 09-15-2023 to 03-28-2024 Rocio Liz MD - 03/28/2024 12:45 PM Rocio Foster MD - 03/28/2024 12:45 PM Rocio Foster MD - 03/28/2024 12:45 PM EDTRocio Liz MD - 03/28/2024 12:45 PM EDT Note Date & Type Note Facility 03-28-2024 Attending History and physical note UPDATED HISTORY AND PHYSICAL EXAMINATION SERVICE DATE: 03/28/2024 SERVICE TIME: 11:43 SENSITIVE EXAMINATION CONSENT: The sensitive examination was discussed with the Patient or Patient's Authorized Clinical Practitioner. As applicable, any other physician, advance practice provider, medical student, or other health professional student that will be observing or involved in the sensitive examination for educational or training purposes was discussed with the Patient or Authorized Clinical Practitioner. The Patient or Authorized Clinical Practitioner has agreed to proceed with the sensitive examination. (Sensitive examination includes inspection and/or palpation of the breasts, pelvis, prostate and anorectal regions) PHYSICAL EXAM MUST BE COMPLETED ON ADMISSION The History and Physical (completed in the past 30 days) has been reviewed and the patient has been examined. The contents accurately reflect the patient's condition with the following additions or revisions since the H&P was completed. Examination indicates no changes. This H&P can be found in the Electronic Medical Record - no previous colonoscopy, no [facility] of colon cancer. SIGNATURE: Rocio Liz MD PATIENT NAME: Hakan Duarte DATE: March 28, 2024 TIME: 11:43 AM Source Note - Rocio Liz MD - 03/28/2024 12:45 PM EDT HISTORY AND PHYSICAL Hakan Duarte 1975 REFERRING PHYSICIAN: Rebekah Johnston MD CHIEF COMPLAINT: No chief complaint on file. HPI: The patient is a 48 year old male here for colonoscopy. PAST MEDICAL HISTORY Diagnosis Date Alcoholism in recovery (HCC) 10/03/2023 in patient rehabd [facility] recurrent disease (HCC) Esophageal reflux GERD (gastroesophageal reflux disease) Panic disorder without agoraphobia 2010 Sterilization PAST SURGICAL HISTORY Procedure Laterality Date LAPAROSCOPY SURG RPR INITIAL INGUINAL HERNIA 08/16/2008 [place] PAST SURGICAL HISTORY OF 2001 wisdom teeth VASECTOMY UNI/BI SPX W/POSTOP SEMEN EXAMS 08/16/2008 bilat Current Outpatient Medications Medication Sig FLUoxetine HCl 20 mg tablet Take 1 tablet by mouth once daily. rosuvastatin (CRESTOR) 20 mg tablet Take 1 tablet by mouth once daily. Omeprazole Magnesium (PRILOSEC OTC) 20 mg tablet Take 20 mg by mouth once daily. pantoprazole DR (PROTONIX) 40 mg tablet TAKE ONE TABLET BY MOUTH EVERY MORNING FLUoxetine (PROZAC) 20 mg capsule TAKE ONE CAPSULE BY MOUTH EVERY MORNING MULTIVITAMIN ORAL Take 1 tablet by mouth once daily. [employer] Performance and Vitality Multipack Current Facility-Administered Medications Medication Dose Route Frequency lidocaine (PF) 10 mg/mL (1 %) 1-2 mg injection (XYLOCAINE) 0.1-0.2 mL INTRADERMAL PRN lactated ringers iv infusion 30 mL/hr INTRAVENOUS CONTINUOUS ALLERGIES: Celebrex [Celecoxib] PERSONAL HISTORY: Social History Tobacco Use Smoking status: Never Smokeless tobacco: Never Vaping Use Vaping status: Never Used Substance Use Topics Alcohol use: Not Currently Comment: alcohol rehab 08/2023 Drug use: No FAMILY HISTORY: FAMILY HISTORY Problem Relation Age of Onset Arthritis Mother Rheumatoid Thyroid Mother Lipids Father Diabetes Father Alcohol abuse Father Alcohol abuse Brother No Known Problems Brother No Known Problems Maternal Grandmother Sudden Cardiac Maternal Grandfather at age 72 Diabetes Paternal Grandmother at age 85 Colon Cancer Paternal Grandfather at age 72 other (reactive airway) Son No Known Problems Son REVIEW OF SYSTEMS: Denies fevers Denies chest pain Denies shortness of breath PHYSICAL EXAMINATION: General: The patient is 48 year old male, well nourished, well hydrated in no acute distress. The patient is oriented to time, place, and person. VITALS: Blood pressure 119/69, temperature 36.1 C (97 F), temperature source Temporal Artery, resp. rate 16, height 182.9 cm (6'), weight 81.6 kg (180 lb), SpO2 100%. Body mass index is 24.41 kg/m . Head - Normocephalic. EOM intact with sclera clear. Mouth with mucus membranes moist. Neck - supple with no jugular venous distention noted. Trachea is midline. Lungs - normal breath sounds, normal respiratory motion, no adventitial sounds noted. Heart - normal heart sounds. Regular rate. Abdomen - soft and benign. Extremities - no pitting edema noted. Skin - Normal skin integrity. Neurological - non focal Psych - calm and appropriate Impression: screening for colon cancer, Discussion/Plan/Recommendations: I have discussed the above with the patient. I have offered colonoscopy , possible biopsies I have explained the procedure to the patient. I have counseled the patient as to the risks of the procedure, including but not limited to: infection, bleeding, injury to any intrabdominal organs such as liver/spleen, perforation of the GI tract, inability to complete the procedure, complications of anesthesia, etc. - the patient understands. The patient wishes to proceed. I have answered all questions to the patient s satisfaction and the patient has no further questions. Rocio Liz MD [facility] 03-28-2024 History and physical note HISTORY AND PHYSICAL Hakan Duarte 1975 REFERRING PHYSICIAN: Rebekah Johnston MD CHIEF COMPLAINT: No chief complaint on file. HPI: The patient is a 48 year old male here for colonoscopy. PAST MEDICAL HISTORY Diagnosis Date Alcoholism in recovery (HCC) 10/03/2023 in patient rehabd [facility]hc[facility] recurrent disease (HCC) Esophageal reflux GERD (gastroesophageal reflux disease) Panic disorder without agoraphobia 2010 Sterilization PAST SURGICAL HISTORY Procedure Laterality Date LAPAROSCOPY SURG RPR INITIAL INGUINAL HERNIA 08/16/2008 [facility] PAST SURGICAL HISTORY OF 2001 wisdom teeth VASECTOMY UNI/BI SPX W/POSTOP SEMEN EXAMS 08/16/2008 bilat Current Outpatient Medications Medication Sig FLUoxetine HCl 20 mg tablet Take 1 tablet by mouth once daily. rosuvastatin (CRESTOR) 20 mg tablet Take 1 tablet by mouth once daily. Omeprazole Magnesium (PRILOSEC OTC) 20 mg tablet Take 20 mg by mouth once daily. pantoprazole DR (PROTONIX) 40 mg tablet TAKE ONE TABLET BY MOUTH EVERY MORNING FLUoxetine (PROZAC) 20 mg capsule TAKE ONE CAPSULE BY MOUTH EVERY MORNING MULTIVITAMIN ORAL Take 1 tablet by mouth once daily. [employer] Performance and Vitality Multipack Current Facility-Administered Medications Medication Dose Route Frequency lidocaine (PF) 10 mg/mL (1 %) 1-2 mg injection (XYLOCAINE) 0.1-0.2 mL INTRADERMAL PRN lactated ringers iv infusion 30 mL/hr INTRAVENOUS CONTINUOUS ALLERGIES: Celebrex [Celecoxib] PERSONAL HISTORY: Social History Tobacco Use Smoking status: Never Smokeless tobacco: Never Vaping Use Vaping status: Never Used Substance Use Topics Alcohol use: Not Currently Comment: alcohol rehab 08/2023 Drug use: No FAMILY HISTORY: FAMILY HISTORY Problem Relation Age of Onset Arthritis Mother Rheumatoid Thyroid Mother Lipids Father Diabetes Father Alcohol abuse Father Alcohol abuse Brother No Known Problems Brother No Known Problems Maternal Grandmother Sudden Cardiac Maternal Grandfather at age 72 Diabetes Paternal Grandmother at age 85 Colon Cancer Paternal Grandfather at age 72 other (reactive airway) Son No Known Problems Son REVIEW OF SYSTEMS: Denies fevers Denies chest pain Denies shortness of breath PHYSICAL EXAMINATION: General: The patient is 48 year old male, well nourished, well hydrated in no acute distress. The patient is oriented to time, place, and person. VITALS: Blood pressure 119/69, temperature 36.1 C (97 F), temperature source Temporal Artery, resp. rate 16, height 182.9 cm (6'), weight 81.6 kg (180 lb), SpO2 100%. Body mass index is 24.41 kg/m . Head - Normocephalic. EOM intact with sclera clear. Mouth with mucus membranes moist. Neck - supple with no jugular venous distention noted. Trachea is midline. Lungs - normal breath sounds, normal respiratory motion, no adventitial sounds noted. Heart - normal heart sounds. Regular rate. Abdomen - soft and benign. Extremities - no pitting edema noted. Skin - Normal skin integrity. Neurological - non focal Psych - calm and appropriate Impression: screening for colon cancer, Discussion/Plan/Recommendations: I have discussed the above with the patient. I have offered colonoscopy , possible biopsies I have explained the procedure to the patient. I have counseled the patient as to the risks of the procedure, including but not limited to: infection, bleeding, injury to any intrabdominal organs such as liver/spleen, perforation of the GI tract, inability to complete the procedure, complications of anesthesia, etc. - the patient understands. The patient wishes to proceed. I have answered all questions to the patient s satisfaction and the patient has no further questions. Rocio Liz MD [facility] 03-28-2024 History and physical note UPDATED HISTORY AND PHYSICAL EXAMINATION SERVICE DATE: 03/28/2024 SERVICE TIME: 11:43 SENSITIVE EXAMINATION CONSENT: The sensitive examination was discussed with the Patient or Patient's Authorized Clinical Practitioner. As applicable, any other physician, advance practice provider, medical student, or other health professional student that will be observing or involved in the sensitive examination for educational or training purposes was discussed with the Patient or Authorized Clinical Practitioner. The Patient or Authorized Clinical Practitioner has agreed to proceed with the sensitive examination. (Sensitive examination includes inspection and/or palpation of the breasts, pelvis, prostate and anorectal regions) PHYSICAL EXAM MUST BE COMPLETED ON ADMISSION The History and Physical (completed in the past 30 days) has been reviewed and the patient has been examined. The contents accurately reflect the patient's condition with the following additions or revisions since the H&P was completed. Examination indicates no changes. This H&P can be found in the Electronic Medical Record - no previous colonoscopy, no [facility] of colon cancer. SIGNATURE: Rocio Liz MD PATIENT NAME: Hakan Duarte DATE: March 28, 2024 TIME: 11:43 AM Source Note - Rocio Liz MD - 03/28/2024 12:45 PM EDT HISTORY AND PHYSICAL Hakan Duarte 1975 REFERRING PHYSICIAN: Rebekah Johnston MD CHIEF COMPLAINT: No chief complaint on file. HPI: The patient is a 48 year old male here for colonoscopy. PAST MEDICAL HISTORY Diagnosis Date Alcoholism in recovery (HCC) 10/03/2023 in patient rehabd [facility] recurrent disease (HCC) Esophageal reflux GERD (gastroesophageal reflux disease) Panic disorder without agoraphobia 2010 Sterilization PAST SURGICAL HISTORY Procedure Laterality Date LAPAROSCOPY SURG RPR INITIAL INGUINAL HERNIA 08/16/2008 [facility] PAST SURGICAL HISTORY OF 2001 wisdom teeth VASECTOMY UNI/BI SPX W/POSTOP SEMEN EXAMS 08/16/2008 bilat Current Outpatient Medications Medication Sig FLUoxetine HCl 20 mg tablet Take 1 tablet by mouth once daily. rosuvastatin (CRESTOR) 20 mg tablet Take 1 tablet by mouth once daily. Omeprazole Magnesium (PRILOSEC OTC) 20 mg tablet Take 20 mg by mouth once daily. pantoprazole DR (PROTONIX) 40 mg tablet TAKE ONE TABLET BY MOUTH EVERY MORNING FLUoxetine (PROZAC) 20 mg capsule TAKE ONE CAPSULE BY MOUTH EVERY MORNING MULTIVITAMIN ORAL Take 1 tablet by mouth once daily. [employer] Vitality Multipack Current Facility-Administered Medications Medication Dose Route Frequency lidocaine (PF) 10 mg/mL (1 %) 1-2 mg injection (XYLOCAINE) 0.1-0.2 mL INTRADERMAL PRN lactated ringers iv infusion 30 mL/hr INTRAVENOUS CONTINUOUS ALLERGIES: Celebrex [Celecoxib] PERSONAL HISTORY: Social History Tobacco Use Smoking status: Never Smokeless tobacco: Never Vaping Use Vaping status: Never Used Substance Use Topics Alcohol use: Not Currently Comment: alcohol rehab 08/2023 Drug use: No FAMILY HISTORY: FAMILY HISTORY Problem Relation Age of Onset Arthritis Mother Rheumatoid Thyroid Mother Lipids Father Diabetes Father Alcohol abuse Father Alcohol abuse Brother No Known Problems Brother No Known Problems Maternal Grandmother Sudden Cardiac Maternal Grandfather at age 72 Diabetes Paternal Grandmother at age 85 Colon Cancer Paternal Grandfather at age 72 other (reactive airway) Son No Known Problems Son REVIEW OF SYSTEMS: Denies fevers Denies chest pain Denies shortness of breath PHYSICAL EXAMINATION: General: The patient is 48 year old male, well nourished, well hydrated in no acute distress. The patient is oriented to time, place, and person. VITALS: Blood pressure 119/69, temperature 36.1 C (97 F), temperature source Temporal Artery, resp. rate 16, height 182.9 cm (6'), weight 81.6 kg (180 lb), SpO2 100%. Body mass index is 24.41 kg/m . Head - Normocephalic. EOM intact with sclera clear. Mouth with mucus membranes moist. Neck - supple with no jugular venous distention noted. Trachea is midline. Lungs - normal breath sounds, normal respiratory motion, no adventitial sounds noted. Heart - normal heart sounds. Regular rate. Abdomen - soft and benign. Extremities - no pitting edema noted. Skin - Normal skin integrity. Neurological - non focal Psych - calm and appropriate Impression: screening for colon cancer, Discussion/Plan/Recommendations: I have discussed the above with the patient. I have offered colonoscopy , possible biopsies I have explained the procedure to the patient. I have counseled the patient as to the risks of the procedure, including but not limited to: infection, bleeding, injury to any intrabdominal organs such as liver/spleen, perforation of the GI tract, inability to complete the procedure, complications of anesthesia, etc. - the patient understands. The patient wishes to proceed. I have answered all questions to the patient s satisfaction and the patient has no further questions. Rocio Liz MD HISTORY AND PHYSICAL Hakan Duarte 1975 REFERRING PHYSICIAN: Rebekah Johnston MD CHIEF COMPLAINT: No chief complaint on file. HPI: The patient is a 48 year old male here for colonoscopy. PAST MEDICAL HISTORY Diagnosis Date Alcoholism in recovery (HCC) 10/03/2023 in patient rehabd [facility]hc[facility] recurrent disease (HCC) Esophageal reflux GERD (gastroesophageal reflux disease) Panic disorder without agoraphobia 2010 Sterilization PAST SURGICAL HISTORY Procedure Laterality Date LAPAROSCOPY SURG RPR INITIAL INGUINAL HERNIA 08/16/2008 [facility] PAST SURGICAL HISTORY OF 2001 wisdom teeth VASECTOMY UNI/BI SPX W/POSTOP SEMEN EXAMS 08/16/2008 bilat Current Outpatient Medications Medication Sig FLUoxetine HCl 20 mg tablet Take 1 tablet by mouth once daily. rosuvastatin (CRESTOR) 20 mg tablet Take 1 tablet by mouth once daily. Omeprazole Magnesium (PRILOSEC OTC) 20 mg tablet Take 20 mg by mouth once daily. pantoprazole DR (PROTONIX) 40 mg tablet TAKE ONE TABLET BY MOUTH EVERY MORNING FLUoxetine (PROZAC) 20 mg capsule TAKE ONE CAPSULE BY MOUTH EVERY MORNING MULTIVITAMIN ORAL Take 1 tablet by mouth once daily. [employer] Performance [employer] Vitality Multipack Current Facility-Administered Medications Medication Dose Route Frequency lidocaine (PF) 10 mg/mL (1 %) 1-2 mg injection (XYLOCAINE) 0.1-0.2 mL INTRADERMAL PRN lactated ringers iv infusion 30 mL/hr INTRAVENOUS CONTINUOUS ALLERGIES: Celebrex [Celecoxib] PERSONAL HISTORY: Social History Tobacco Use Smoking status: Never Smokeless tobacco: Never Vaping Use Vaping status: Never Used Substance Use Topics Alcohol use: Not Currently Comment: alcohol rehab 08/2023 Drug use: No FAMILY HISTORY: FAMILY HISTORY Problem Relation Age of Onset Arthritis Mother Rheumatoid Thyroid Mother Lipids Father Diabetes Father Alcohol abuse Father Alcohol abuse Brother No Known Problems Brother No Known Problems Maternal Grandmother Sudden Cardiac Maternal Grandfather at age 72 Diabetes Paternal Grandmother at age 85 Colon Cancer Paternal Grandfather at age 72 other (reactive airway) Son No Known Problems Son REVIEW OF SYSTEMS: Denies fevers Denies chest pain Denies shortness of breath PHYSICAL EXAMINATION: General: The patient is 48 year old male, well nourished, well hydrated in no acute distress. The patient is oriented to time, place, and person. VITALS: Blood pressure 119/69, temperature 36.1 C (97 F), temperature source Temporal Artery, resp. rate 16, height 182.9 cm (6'), weight 81.6 kg (180 lb), SpO2 100%. Body mass index is 24.41 kg/m . Head - Normocephalic. EOM intact with sclera clear. Mouth with mucus membranes moist. Neck - supple with no jugular venous distention noted. Trachea is midline. Lungs - normal breath sounds, normal respiratory motion, no adventitial sounds noted. Heart - normal heart sounds. Regular rate. Abdomen - soft and benign. Extremities - no pitting edema noted. Skin - Normal skin integrity. Neurological - non focal Psych - calm and appropriate Impression: screening for colon cancer, Discussion/Plan/Recommendations: I have discussed the above with the patient. I have offered colonoscopy , possible biopsies I have explained the procedure to the patient. I have counseled the patient as to the risks of the procedure, including but not limited to: infection, bleeding, injury to any intrabdominal organs such as liver/spleen, perforation of the GI tract, inability to complete the procedure, complications of anesthesia, etc. - the patient understands. The patient wishes to proceed. I have answered all questions to the patient s satisfaction and the patient has no further questions. Rocio Liz MD documented in this encounter [facility] 03-02-2024 Note HNO ID: [id number] Author: ISACC MARIA MD Service: ? Author Type: Physician Type: Progress Notes Filed: 03/02/2024 10:34 Note Text: Heart, Vascular, and Thoracic [place] Debbie Mercado Department of Cardiovascular Medicine SECTION OF PREVENTIVE CARDIOLOGY Hakan Duarte 03/02/2024 CHIEF COMPLAINT: Patient presents with: CARD New Patient Consult HISTORY OF PRESENT CARDIOVASCULAR ILLNESS: Hakan Duarte is a 48 year old male with a PMH significant for coronary artery calcifications (137 AU, 10/12/23, LM score zero), carotid plaque without stenosis, PACs. Presents for evaluation of cardiac issues. He underwent exercutive health screening this summer, October 12, 2023. Results showed: -CAC score 137 AU, left main score zero. LA dilated appearing. -Carotid plaque without stenosis -ECG exercise stress testing: ~12 minutes, 10.5 METs, no symptoms, no ST segment changes. Reported PACs -LDL-C 145 mg/dL, non-HDL-C 166 mg/dL, apoB 128 mg/dL, Lp (a) and hs CRP normal, HgBA1c normal Rosuvastatin 20 Rx'd 10/12/23 after CAC score returned He is here for further cardiac opinion on the above. He is running a marathon tomorrow. Trains 6 days a week without symptoms. Feels well. Works for [employer]. Eats beef. Upon cardiovascular review of systems the patient denies chest pain, SOB, palpitations, syncope, light-headedness, PND , orthopnea, intermittent claudication. CARDIAC RISK FACTORS: N/A Exercise: More than 5 times per week Running 3-5 miles a day at least Plus body weight exercises Maternal grandfather - [place], possibly arounds 70s STATIN INTOLERANCE: USE OF PCSK9 INHIBITORS: CARDIOVASCULAR DISEASE HISTORY: Calcium Score >100-399: Yes 10/12/23 Valve Disease: None Arrythmias: None HEART FAILURE/CARDIOMYOPATHY: None RELATED DISEASE HISTORY: History question Answer Diagnosis Date Comment Psychiatric Disease : Panic disorder without agoraphobia 2009 CURRENT MEDS: Current Outpatient Medications Medication Sig FLUoxetine HCl 20 mg tablet Take 1 tablet by mouth once daily. rosuvastatin (CRESTOR) 20 mg tablet Take 1 tablet by mouth once daily. MULTIVITAMIN ORAL Take 1 tablet by mouth once daily. [employer] Performance and Vitality Multipack Omeprazole Magnesium (PRILOSEC OTC) 20 mg tablet Take 20 mg by mouth once daily. No current facility-administered medications for this visit. ALLERGIES: ALLERGIES Allergen Reactions Celebrex [Celecoxib] Rash FAMILY AND SOCIAL HISTORY: Lifestyle Alcohol Use: Not Currently (alcohol rehab 08/2023) REVIEW OF SYSTEMS: CONSTITUTIONAL: No Changes. RESPIRATORY: See HPI CARDIOVASCULAR: See HPI Otherwise not reviewed PHYSICAL EXAMINATION: Vital Signs and General Appearance BP 117/73 (BP Site: Right Arm, BP Position: Sitting, BP Cuff Size: Regular Adult) Pulse (!) 54 Ht 182.9 cm (6') Wt 82.8 kg (182 lb 9.6 oz) BMI 24.77 kg/m? Average Blood Pressure: 117/73 BMI 24.76 kg/(m2) Well developed, well nourished, alert, active 48 year old male in no apparent distress. Eyes: Normal, PERRLA Skin: Xanthomas - none Neck: Normal, supple with full range of motion Lungs: Clear to auscultation and percussion Lower Extremities: Normal exam of the extremities Neurological:Oriented to person, place and time and No focal motor or sensory deficits Pulses: Carotid: Left: 2+, Right: 2+, Bruit: No Posterior Tibial:Right 2+, Posterior Tibial:Left 2+, Heart Sounds: S1: Normal S2: Normal S3: Absent S4: Absent Murmurs: Systolic Murmur Present: No Diastolic Murmur Present: No CLINICAL TESTING RESULTS: I have personally reviewed the following: Most recent ECG Tracing: which I independently visualized. CAC score 10/12/2023: mpression IMPRESSION: - Total Coronary Calcium Score (CAC) = 137 AU. -Mild dilation of the left atrium. Match Up Worker: ARIA Transcribe Date/Time: Oct 12 2023 1:43P Calcium Score (Agatston Units): LM: 0 AU LAD: 132 AU LCx: 5 AU RCA: 0 AU Other: 0 AU Total: 137 AU ECG treadmill stress test 10/12/2023: tress Observations: Resting HR: 62 bpm Peak HR: 157 bpm (90% MPHR) Resting BP: 126 / 90 mmHg Peak BP: 154 / 84 mmHg Total exercise time: 12 minutes 0 seconds METS achieved: 10.5 Chronotropic response index (CRI): 0.85 Heart rate recovery (HRR): 37 bpm Rate Pressure Product (RPP): 94560 Hunter Treadmill Score: 12.0 Stress Exercise Observations: Reason for test termination: general fatigue, Symptoms during test: No symptoms provoked during stress, Heart rate response: Adequate heart rate response, Normal CRI (>0.8 Not on B Jorge) and Normal HRR (>12 or >[address]/EC), Blood pressure response: Normal BP response, ST segment and T wave changes: No ST changes, Hunter Treadmill Score: Normal Hunter Treadmill Score (>=5) and Arrhythmias: PACs Vascular screening 10/12/2023: DIEGO -------- BREE (more content not included)... [facility] 03-02-2024 History of Present illness Narrative Images from the original note were not included. Heart, Vascular, and Thoracic [place] Debbie Bright Department of Cardiovascular Medicine SECTION OF PREVENTIVE CARDIOLOGY Hakan Duarte 03/02/2024 CHIEF COMPLAINT: Patient presents with: CARD New Patient Consult HISTORY OF PRESENT CARDIOVASCULAR ILLNESS: Hakan Duarte is a 48 year old male with a PMH significant for coronary artery calcifications (137 AU, 10/12/23, LM score zero), carotid plaque without stenosis, PACs. Presents for evaluation of cardiac issues. He underwent exercutive health screening this summer, October 12, 2023. Results showed: -CAC score 137 AU, left main score zero. LA dilated appearing. -Carotid plaque without stenosis -ECG exercise stress testing: ~12 minutes, 10.5 METs, no symptoms, no ST segment changes. Reported PACs -LDL-C 145 mg/dL, non-HDL-C 166 mg/dL, apoB 128 mg/dL, Lp (a) and hs CRP normal, HgBA1c normal Rosuvastatin 20 Rx'd 10/12/23 after CAC score returned He is here for further cardiac opinion on the above. He is running a marathon tomorrow. Trains 6 days a week without symptoms. Feels well. Works for [employer]. Eats beef. Upon cardiovascular review of systems the patient denies chest pain, SOB, palpitations, syncope, light-headedness, PND , orthopnea, intermittent claudication. CARDIAC RISK FACTORS: N/A Exercise: More than 5 times per week Running 3-5 miles a day at least Plus body weight exercises Maternal grandfather - [place], possibly arounds 70s STATIN INTOLERANCE: USE OF PCSK9 INHIBITORS: CARDIOVASCULAR DISEASE HISTORY: Calcium Score >100-399: Yes 10/12/23 Valve Disease: None Arrythmias: None HEART FAILURE/CARDIOMYOPATHY: None RELATED DISEASE HISTORY: History question Answer Diagnosis Date Comment Psychiatric Disease : Panic disorder without agoraphobia 2009 CURRENT MEDS: Current Outpatient Medications Medication Sig FLUoxetine HCl 20 mg tablet Take 1 tablet by mouth once daily. rosuvastatin (CRESTOR) 20 mg tablet Take 1 tablet by mouth once daily. MULTIVITAMIN ORAL Take 1 tablet by mouth once daily. [facility] Performance and Vitality Multipack Omeprazole Magnesium (PRILOSEC OTC) 20 mg tablet Take 20 mg by mouth once daily. No current facility-administered medications for this visit. ALLERGIES: ALLERGIES Allergen Reactions Celebrex [Celecoxib] Rash FAMILY AND SOCIAL HISTORY: Lifestyle Alcohol Use: Not Currently (alcohol rehab 08/2023) REVIEW OF SYSTEMS: CONSTITUTIONAL: No Changes. RESPIRATORY: See HPI CARDIOVASCULAR: See HPI Otherwise not reviewed PHYSICAL EXAMINATION: Vital Signs and General Appearance BP 117/73 (BP Site: Right Arm, BP Position: Sitting, BP Cuff Size: Regular Adult) Pulse (!) 54 Ht 182.9 cm (6') Wt 82.8 kg (182 lb 9.6 oz) BMI 24.77 kg/m Average Blood Pressure: 117/73 BMI 24.76 kg/(m^2) Well developed, well nourished, alert, active 48 year old male in no apparent distress. Eyes: Normal, PERRLA Skin: Xanthomas - none Neck: Normal, supple with full range of motion Lungs: Clear to auscultation and percussion Lower Extremities: Normal exam of the extremities Neurological:Oriented to person, place and time and No focal motor or sensory deficits Pulses: Carotid: Left: 2+, Right: 2+, Bruit: No Posterior Tibial:Right 2+, Posterior Tibial:Left 2+, Heart Sounds: S1: Normal S2: Normal S3: Absent S4: Absent Murmurs: Systolic Murmur Present: No Diastolic Murmur Present: No CLINICAL TESTING RESULTS: I have personally reviewed the following: Most recent ECG Tracing: which I independently visualized. CAC score 10/12/2023: mpression IMPRESSION: - Total Coronary Calcium Score (CAC) = 137 AU. -Mild dilation of the left atrium. Match Up Worker: ARIA Transcribe Date/Time: Oct 12 2023 1:43P Calcium Score (Agatston Units): LM: 0 AU LAD: 132 AU LCx: 5 AU RCA: 0 AU Other: 0 AU Total: 137 AU ECG treadmill stress test 10/12/2023: tress Observations: Resting HR: 62 bpm Peak HR: 157 bpm (90% MPHR) Resting BP: 126 / 90 mmHg Peak BP: 154 / 84 mmHg Total exercise time: 12 minutes 0 seconds METS achieved: 10.5 Chronotropic response index (CRI): 0.85 Heart rate recovery (HRR): 37 bpm Rate Pressure Product (RPP): 75435 Hunter Treadmill Score: 12.0 Stress Exercise Observations: Reason for test termination: general fatigue, Symptoms during test: No symptoms provoked during stress, Heart rate response: Adequate heart rate response, Normal CRI (>0.8 Not on B Jorge) and Normal HRR (>12 or >[address]/EC), Blood pressure response: Normal BP response, ST segment and T wave changes: No ST changes, Hunter Treadmill Score: Normal Hunter Treadmill Score (>=5) and Arrhythmias: PACs Vascular screening 10/12/2023: INDINGS -------- CAROTID Family history of stroke: No Patient has had a stroke or TIA: No Patient is known to have stenosis of one of the carotid arteries: No Patient is known to have a blockage of one of the carotid arteries: No Right common carotid artery distal: PSV: 79 cm/s. EDV: 18 cm/s. Mild plaque present. Right internal carotid artery origin: PSV: 69 cm/s. EDV: 19 cm/s. No plaque seen. Right internal carotid artery proximal: PSV: 76 cm/s. EDV: 30 cm/s. No plaque seen. Right external carotid artery origin: PSV: 88 cm/s. EDV: 12 cm/s. No plaque seen. Left common carotid artery distal: PSV: 86 cm/s. EDV: 21 cm/s. No plaque seen. Left internal carotid artery origin: PSV: 63 cm/s. EDV: 17 cm/s. No plaque seen. Left internal carotid artery proximal: PSV: 85 cm/s. EDV: 33 cm/s. No plaque seen. Left external carotid artery origin: PSV: 108 cm/s. EDV: 12 cm/s. No plaque seen. AORTA Family history of abdominal aortic aneurysm: No Patient is known to have an abdominal aortic aneurysm: No History of cigarettes smoking (> 100 cigarettes in the lifetime): No Aorta at renals: PSV: 93 cm/s. EDV: 16 cm/s. No plaque seen. Aorta mid: 1.95 cm x 1.90 cm No plaque seen. ANKLE BRACHIAL INDEX (CAREN) Known peripheral artery disease: No Open wounds on the legs: No Pain in calves, thighs, or buttocks when walking that resolves with rest: No Right Pressures Brachial: 128 mmHg Ankle dorsalis pedis: 150 mmHg CAREN: 1.15 Ankle posterior tibial: 160 mmHg CAREN: 1.23 Left Pressures Brachial: 130 mmHg Ankle dorsalis pedis: 140 mmHg CAREN: 1.08 Ankle posterior tibial: 150 mmHg CAREN: 1.15 IMPRESSION Follow up with your physician regarding the results of the study is advised. CAROTID Right carotid: Atherosclerotic plaque is visualized in at least one of the arteries evaluated (see above); however, there is no significant stenosis of the internal carotid artery. Left carotid: No atherosclerotic plaque visualized. Vessels are normal. AORTA No evidence of abdominal aortic aneurysm. Limited visualization at proximal due to bowel gas. ANKLE BRACHIAL INDEX (CAREN) Right ankle brachial index: 1.23 Normal ankle brachial index at rest in the right leg. Left ankle brachial index: 1.15 Normal ankle brachial index at rest in the left leg. Technologist: Yesy Salgado RVT Ordering physician: REBEKAH JOHNSTON Interpreting physician: Marck Baca DO, RVT, RPVI : Glucose (mg/dL) Date Value 10/12/2023 91 BUN (mg/dL) Date Value 10/12/2023 18 Creatinine (mg/dL) Date Value 10/12/2023 0.86 Sodium (mmol/L) Date Value 10/12/2023 141 Potassium (mmol/L) Date Value 10/12/2023 4.6 Chloride (mmol/L) Date Value 10/12/2023 102 CO2 (mmol/L) Date Value 10/12/2023 26 Protein, Total (g/dL) Date Value 10/12/2023 7.3 Albumin (g/dL) Date Value 10/12/2023 4.3 10/12/2023 4.3 Calcium, Total (mg/dL) Date Value 10/12/2023 9.8 Alkaline Phosphatase (U/L) Date Value 10/12/2023 58 Bilirubin, Total (mg/dL) Date Value 10/12/2023 0.9 AST (U/L) Date Value 10/12/2023 29 ALT (U/L) Date Value 10/12/2023 33 WBC (k/uL) Date Value 10/12/2023 6.24 RBC (m/uL) Date Value 10/12/2023 4.68 Hemoglobin (g/dL) Date Value 10/12/2023 14.3 Hematocrit (%) Date Value 10/12/2023 43.4 MCV (fL) Date Value 10/12/2023 92.7 MCH (pg) Date Value 10/12/2023 30.6 MCHC (g/dL) Date Value 10/12/2023 32.9 RDW-CV (%) Date Value 10/12/2023 12.4 Platelet Count (k/uL) Date Value 10/12/2023 260 MPV (fL) Date Value 10/12/2023 10.1 No results found for: INR Cholesterol, Total Date Value Ref Range Status 10/12/2023 204 (H) <200 mg/dL Final Comment: <200 mg/dL, Desirable 200-239 mg/dL, Borderline high >239 mg/dL, High HDL Cholesterol Date Value Ref Range Status 10/12/2023 38 (L) >39 mg/dL Final Comment: 40-59 mg/dL, Acceptable >59 mg/dL, High: Negative risk factor for coronary heart disease <40 mg/dL, Low: Positive risk factor for coronary heart disease LDL Cholesterol Date Value Ref Range Status 10/12/2023 145 (H) <100 mg/dL Final Comment: <100 mg/dL, Optimal 100-129 mg/dL, Near optimal/above optimal 130-159 mg/dL, Borderline high 160-189 mg/dL, High >189 mg/dL, Very high Secondary prevention optimal LDL Cholesterol levels are recommended to be < 70 mg/dL Triglyceride Date Value Ref Range Status 10/12/2023 107 <150 mg/dL Final Comment: <150 mg/dL, Normal 150-199 mg/dL, Borderline high 200-499 mg/dL, High >499 mg/dL, Very high PATIENT ENTERED QUESTIONNAIRE SCORES 10/12/2023 PHQ-9 PHQ-2 Score 0 10/12/2023 NESHA - 2/7 SCORES NESHA-2 Score 0 10/06/2023 PROMIS Global Health - (T-Scores - the mean of general population = 50. Five points is a clinically meaningful difference.) Physical T-Score 57.7 Mental T-Score 50.8 This consultation was requested by Rebekah Johnston MD for an opinion regarding coronary calcium score , and my final recommendations will be communicated back to the requesting physician and primary care provider by way of shared medical record or letter summarizing my evaluation. ASSESSMENT AND PLAN: In addition to the above history and physical exam, the results of prior labs and testing, were reviewed. The following mutual plans and goals have been established to address current medical problems and optimize control of cardiovascular risk factors to reduce the risk of future heart disease: Active Medical Problems: 1) CAC score > 100 (LM score ), 10/12/23 2) Carotid plaque We discussed CAC scores at length including pathogenesis of coronary plaque, the concept of stable versus unstable plaques, guidelines, natural history, and role in risk stratification. No angina, HF signs/symptoms, or cardiorespiratory limitations. He did well on his ECG treadmill stress test. No current indication for additional imaging. Focus on maximal risk reduction measures. We discussed the need for optimal control of cardiovascular risk factors in line with the AHA's Life's Essential 8 framework including diet, exercise, blood pressure, cholesterol, weight, smoking cessation/avoidance, glucose control, and sleep quantity/quality. Lipids and risk reduction: Continue rosuvastatin 20 mg PO daily, recheck lipids (lipid panel already ordered, added apoB and LFTs). Lp (a) normal. Aspirin 81 mg PO daily may be useful as well given CAC and based on modeling studies, as long as there is no significant competing risk such as bleeding -- he will start. Blood pressure is controlled. BMI is < 25. Hs CRP is normal. We discussed the cardiovascular benefits of a heart healthy diet such as a Mediterranean dietary pattern. This includes plenty of whole or plant based foods-fruit, vegetables, whole grains, and nuts. It also includes choosing monounsaturated fat from olive oil, olives, nuts, and avocado. Otoe-3 fats are another heart healthy fat found in tuna, salmon, flaxseed, and walnuts. Limit foods high in sodium, saturated fat, and cholesterol. The current [place] Heart Association guideline recommendation is 150 minutes of moderate aerobic physical activity per week. I encouraged the patient to achieve at least this much physical activity. Let us know if any symptoms or concerns which we discussed. 2) PACs Reported on ECG treadmill stress, with no sustained/malignant arrhythmias noted Mild LA dilation on CAC scan Sinus bradycardia on resting ECG in office 03/02/24 Asymptomatic -Reassurance re: generally benign nature of PACs -Clinical monitoring, let us know if symptoms of arrhythmias FOLLOW UP: We recommend a 1 year follow-up, or sooner as needed. We reviewed return precautions and the need to seek urgent/emergent care if there are severe or concerning symptoms including chest pain and shortness of breath. The medical decision making for this patient encounter was of moderate complexity I provided Hakan Duarte with my contact information at this visit (or a prior visit.) Isacc Maria MD AMBULATORY PATIENT EDUCATION Topic: Other: CAC score Instruction Provided To: Patient Barriers: None Motivation to Learn: Interested Methods of Instruction: Verbal instruction and/or handouts. 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 Can you please reschedule in [place]? 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 Can you please reschedule in [place]? Thank you Pennie Martinez documented in this encounter [facility] 11-07-2023 Note HNO ID: [id number] Author: SUMMER PETERSON, Physical Trainer Service: ? Author Type: Physical Trainer Type: Progress Notes Filed: 11/07/2023 14:45 Note Text: [employer] Summary The information included in this report is a comprehensive overview of the components of fitness necessary to maintain a higher quality of life. Upon completion of the fitness evaluation, this information has been customized to each individual in order for the evaluated individual to understand and utilize the major components of fitness, as well as the proper guidelines for exercising in a safe and effective manner. Each program is compiled as specified to individual needs and health goals. Patient Name: Hakan Duarte Date: October 12, 2023 [facility] Number: [id number] Health [employer] Fitness Rankin Hours Worked/ wk: 40-60 Travel (%): 30 Health Related Goals: Run full marathon this Fall ([place]) Fitness History: Cardio 5-7x per week; resistance training 2x per week; stretching with cardio 5-7x per week Health Limitations: 1. Recommend a healthy diet, including a calcium intake of approximately 1200 mg per day from food with supplementation as needed to achieve this goal and 1/2 of your body weight in ounces of non alcoholic, non caffeinated liquid/day. 2. Recommend > 150 minutes a week of exercise. 3. Colorectal cancer screening with colonoscopy recommended and orders placed. 4. Risks/benefits of prostate cancer screening discussed, and screening PSA normal. 5. Ultrasound screening for AAA is negative. 6. Agree with elimination of alcohol. 7. Recommend Influenza vaccine and booster for Covid-19 in the fall and consider Hepatis B Vaccination. 8. Tdap immunization with Adacel given today. 9. HCV screening test for low risk patient and screening for HIV without presence of risk factors are both negative. 10. Abnormal finding on EKG with multifocal ectopic atrial beats seen when lying down. This is an abnormality in the electrical system not the plumbing. 11. Carotid artery plaque, right defines the presence of peripheral vascular disease, suggest dedicated carotid artery ultrasound at next executive exam (1-2 years). 12. Agatston coronary artery calcium score of 137 AU defines the presence of coronary artery disease, which changes goals for LDL to < 70. 13. Mixed hyperlipidemia and dyslipidemia (high LDL; low HDL). Start rosuvastatin (Crestor) 20 mg, prescription enclosed. 14. Referral to cardiology, for follow up of atrial arrhythmia when lying down, which shouldn't have anything to do with plaque in light of negative stress test. 15. Continue healthy diet and regular exercise. Repeat fasting Lipids in 3 months, sooner should any other issues arise. 16. Cardiac risk assessment includes biochemical measures of lipids and inflammation, as well as testing of the electrical system with EKGs and looking at the coronary arteries with CT calcium scoring and assessment of cardiac function with stress testing. We can combine these test results to calculate the risk for a cardiac event in the coming decade using the RAMIREZ Risk Calculator. We use this to guide the use of medication to mitigate risk. Your RAMIREZ Risk Score is 9.83 % if we count your grandfather's sudden cardiac as plus family history, usually we look at first degree relatives, mom, dad, siblings, children, and if we say no family history this is 7.21. Orthopedic Limitations/ Chronic Pain: low back tightness Current Activity: Type of exercise: Frequency (week) Duration (min) Mode: Intensity: Notes: Cardio: 5-7 30-60 Running Moderate ~30 miles per week Resistance: 2 45 Calisthenics Moderate Full Body Flexibility: 5-7 2-5 Static Stretching Light Fitness Testing: See attached results for comparison of standards for age and gender. General Machine Operator Strength: Right hand: 50 kilograms Left hand: 45 kilograms *Ranking: Below Average * Based on standardized ACSM guidelines for age and gender. Sit and Reach Score: 16 inches *Ranking: Good * Based on standardized ACSM guidelines for age and gender. General Flexibility: Body Part Right Left Body Part Right Left Hamstrings: 2 2 Quadriceps: 2 2 Gastroc/ Soleus: 2 2 Shoulder IR: 2 2 Hip Internal Rot. 2 2 Shoulder ER: 2 2 Hip External Rot. 2 2 Neck Flex/Ext: 2/2 Straight Leg Raise 2 2 Neck Rot.: 2 Lower Back: 2 Neck Sidebend: 2 1= Excellent 2=Normal 3=Below Average 4=Poor Balance: Normal Squat Test: Normal Exercise Recommendations: Type of exercise: Frequency (week) Duration (min) Mode: Intensity: Notes: Cardiovascular: Frequency should be a minimum 5-7 times per week of moderate intensity or 3-4 of vigorous intensity. 30-60 minutes Recommended examples include, but are not limited to: Running, biking, hiking, elliptical, swimming, dancing, aerobics, spinning Please see RPE scale. Maintain a minimum of 150 minutes of cumulative cardiovascular exercis (more content not included)... [facility] 11-07-2023 History of Present illness Narrative [employer] Summary The information included in this report is a comprehensive overview of the components of fitness necessary to maintain a higher quality of life. Upon completion of the fitness evaluation, this information has been customized to each individual in order for the evaluated individual to understand and utilize the major components of fitness, as well as the proper guidelines for exercising in a safe and effective manner. Each program is compiled as specified to individual needs and health goals. Patient Name: Hakan Duarte Date: October 12, 2023 [facility] Number: [id number] Health [employer] Fitness Rankin Hours Worked/ wk: 40-60 Travel (%): 30 Health Related Goals: Run full marathon this Fall ([place]) Fitness History: Cardio 5-7x per week; resistance training 2x per week; stretching with cardio 5-7x per week Health Limitations: 1. Recommend a healthy diet, including a calcium intake of approximately 1200 mg per day from food with supplementation as needed to achieve this goal and 1/2 of your body weight in ounces of non alcoholic, non caffeinated liquid/day. 2. Recommend > 150 minutes a week of exercise. 3. Colorectal cancer screening with colonoscopy recommended and orders placed. 4. Risks/benefits of prostate cancer screening discussed, and screening PSA normal. 5. Ultrasound screening for AAA is negative. 6. Agree with elimination of alcohol. 7. Recommend Influenza vaccine and booster for Covid-19 in the fall and consider Hepatis B Vaccination. 8. Tdap immunization with Adacel given today. 9. HCV screening test for low risk patient and screening for HIV without presence of risk factors are both negative. 10. Abnormal finding on EKG with multifocal ectopic atrial beats seen when lying down. This is an abnormality in the electrical system not the plumbing. 11. Carotid artery plaque, right defines the presence of peripheral vascular disease, suggest dedicated carotid artery ultrasound at next executive exam (1-2 years). 12. Agatston coronary artery calcium score of 137 AU defines the presence of coronary artery disease, which changes goals for LDL to < 70. 13. Mixed hyperlipidemia and dyslipidemia (high LDL; low HDL). Start rosuvastatin (Crestor) 20 mg, prescription enclosed. 14. Referral to cardiology, for follow up of atrial arrhythmia when lying down, which shouldn't have anything to do with plaque in light of negative stress test. 15. Continue healthy diet and regular exercise. Repeat fasting Lipids in 3 months, sooner should any other issues arise. 16. Cardiac risk assessment includes biochemical measures of lipids and inflammation, as well as testing of the electrical system with EKGs and looking at the coronary arteries with CT calcium scoring and assessment of cardiac function with stress testing. We can combine these test results to calculate the risk for a cardiac event in the coming decade using the RAMIREZ Risk Calculator. We use this to guide the use of medication to mitigate risk. Your RAMIREZ Risk Score is 9.83 % if we count your grandfather's sudden cardiac as plus family history, usually we look at first degree relatives, mom, dad, siblings, children, and if we say no family history this is 7.21. Orthopedic Limitations/ Chronic Pain: low back tightness Current Activity: Type of exercise: Frequency (week) Duration (min) Mode: Intensity: Notes: Cardio: 5-7 30-60 Running Moderate ~30 miles per week Resistance: 2 45 Calisthenics Moderate Full Body Flexibility: 5-7 2-5 Static Stretching Light Fitness Testing: See attached results for comparison of standards for age and gender. General Machine Operator Strength: Right hand: 50 kilograms Left hand: 45 kilograms *Ranking: Below Average * Based on standardized ACSM guidelines for age and gender. Sit and Reach Score: 16 inches *Ranking: Good * Based on standardized ACSM guidelines for age and gender. General Flexibility: Body Part Right Left Body Part Right Left Hamstrings: 2 2 Quadriceps: 2 2 Gastroc/ Soleus: 2 2 Shoulder IR: 2 2 Hip Internal Rot. 2 2 Shoulder ER: 2 2 Hip External Rot. 2 2 Neck Flex/Ext: 2/2 Straight Leg Raise 2 2 Neck Rot.: 2 Lower Back: 2 Neck Sidebend: 2 1= Excellent 2=Normal 3=Below Average 4=Poor Balance: Normal Squat Test: Normal Exercise Recommendations: Type of exercise: Frequency (week) Duration (min) Mode: Intensity: Notes: Cardiovascular: Frequency should be a minimum 5-7 times per week of moderate intensity or 3-4 of vigorous intensity. 30-60 minutes Recommended examples include, but are not limited to: Running, biking, hiking, elliptical, swimming, dancing, aerobics, spinning Please see RPE scale. Maintain a minimum of 150 minutes of cumulative cardiovascular exercise each week to meet [place] Heart Association Guidelines. Anything beyond ten minutes of continuous cardiovascular exercise counts towards the 150 minute goal. Moderate: 3-5 Vigorous: 6-8 For weight loss, it is most effective to build up to a minimum of 5 sessions per week. Two sessions should include interval training of alternating higher and lower intensity for 2-4 minute bursts for 20-30 minutes, and the other days should be moderate intensity exercise at a constant pace for 45-60 minutes. Please follow up with cardiology as needed and noted in Dr. Johnston's letter. When just starting cardiovascular exercise, it is most effective to begin with light to moderate intensity cardio, and gradually increase the time and intensity. To improve cardiovascular performance, it is most effective to include interval training of alternating higher and lower intensities for 2-4 minute bursts for at least 20 minutes. Resistance: Frequency should be a minimum of two times per week for each major muscle group. When isolating muscles, the frequency may need to increase. 20-30 minutes Continue current routine; increase frequency as tolerated, decrease frequency closer to race date. 2-4 sets of 8-12 repetitions to exhaustion Safety and Effectiveness: Provide slow resistance in each direction and adapt the resistance to suit your strength capabilities. Allow for a day of rest in between sessions of the same muscle group. Do not hold your breath. Exhale during the most difficult portion of any lift. Initiate the enclosed strength training program and alter the routine every 6-12 weeks to prevent muscle memory. All exercises should be performed a minimum of twice a week to show gains. Resistance exercise can assist with weight loss by increasing your resting metabolic rate. Flexibility: 3-7 10-20 minutes Each stretch should cause you to feel tension in the muscle, but never a sharp pain. Stretching is most effective when done either after or independent of exercise. A warm up is important in order to prevent injury. Please see full body stretches. 20 seconds per stretch, and repeat each stretch 2-3 times; stretch any restricted muscles. Balance/ Agility: 3-7 10-20 minutes Basic Balance Please see basic balance exercises. Special Considerations: If you feel any unusual sensations during exercise including, but not limited to chest pain, nausea, lightheadedness, dizziness, extreme fatigue, or any sharp pain, discontinue exercise immediately and consult your physician. Any specific exercises that cause discomfort should be stopped and excluded from your routine. This exercise program is designed to be safe and effective, however, certain health conditions may arise that would change safety guidelines for exercise. Please check with your physician if you are newly diagnosed with heart disease, high blood pressure, diabetes, osteoporosis, arthritis, or any other chronic condition. For additional information: [employer]: www.acsm.org [place] [employer] Exercise: www.acefitness.org National [place] of Health: www.nih.gov Clinician: Summer Peterson MS Physical Trainer documented in this encounter [facility] 10-12-2023 Note Education (EXEPMN) HAKAN DUARTE ([id number]) 1975 M Date Time Provider Department 10/12/23 3:00 PM INSTALLER APPRENTICE JOHN Reason for Visit: Nutrition Assessment [1591] Patient Education [91] During your visit today, we recorded the following information about you: Weight Height 84.4 kg 1.829 m Allergies As of Date: 10/12/2023 Noted Allergy Reaction CELEBREX (CELECOXIB) 02/26/2008 2 - Rash Date Reviewed: 10/12/2023 Reviewed by: Tanya Schwartz RD - Fully Assessed Prescriptions as of 10/12/2023 - MULTIVITAMIN ORAL Take 1 tablet by mouth once daily. [facility] Performance and Vitality Multipack - peg 3350-Electrolytes (GOLYTELY) 236-22.74-6.74 -5.86 gram suspension Take 4,000 mL by mouth one time only for 1 dose. Refer to printed prep instructions from your doctor. - FLUoxetine HCl 20 mg tablet Take 1 tablet by mouth once daily. - Omeprazole Magnesium (PRILOSEC OTC) 20 mg tablet Take 20 mg by mouth once daily. Letter Text Encounter Status:Closed by TANYA SCHWARTZ on 10/12/23 [facility] 10-12-2023 Note Education (EXEPMN) HAKAN DUARTE ([id number]) 1975 M Date Time Provider Department 10/12/23 3:00 PM INSTALLER APPRENTICE JOHN Reason for Visit: Nutrition Assessment [1591] Patient Education [91] During your visit today, we recorded the following information about you: Weight Height 84.4 kg 1.829 m Allergies As of Date: 10/12/2023 Noted Allergy Reaction CELEBREX (CELECOXIB) 02/26/2008 2 - Rash Date Reviewed: 10/12/2023 Reviewed by: Tanya Schwartz RD - Fully Assessed Prescriptions as of 10/12/2023 - MULTIVITAMIN ORAL Take 1 tablet by mouth once daily. [facility] Performance and Vitality Multipack - peg 3350-Electrolytes (GOLYTELY) 236-22.74-6.74 -5.86 gram suspension Take 4,000 mL by mouth one time only for 1 dose. Refer to printed prep instructions from your doctor. - FLUoxetine HCl 20 mg tablet Take 1 tablet by mouth once daily. - Omeprazole Magnesium (PRILOSEC OTC) 20 mg tablet Take 20 mg by mouth once daily. Letter Text Encounter Status:Closed by TANYA SCHWARTZ on 10/12/23 [facility] 10-12-2023 Note HNO ID: [id number] Author: TANYA SCHWARTZ RD Service: ? Author Type: Registered Dietitian Type: Progress Notes Filed: 10/12/2023 15:34 Note Text: The [facility] Nutrition Progress Note Hakan Aidan uDarte [id number] Assessment Physical Findings: Current Weight and Height: 84.4 kg (186 lb 1.6 oz) 182.9 cm (6') Body mass index is 25.24 kg/m?. [place] BMI: 18.5-24.9 Percent body fat: 18.5 %, [place] body fat percentage is 10-20% for male. Weight corresponding to upper limit of normal body fat% range: 20%: 189.6 lbs Waist Circumference: 34 inches (Recommended waist circumference: 36 inches or less) Hip Circumference: 40 inches Waist to hip ratio: 0.85 ([place] waist/hip ratio: Male: 0.9 or less.) Patient's activity is: Activities of Daily Living: Sedentary (Desk job, seated for most of the day) Additional Activity: Very active (Intense exercise 6-7 days a week) Running 5-7x/ week Bodyweight exercises 3x/ week Patient's symptoms are: elevated total and LDL-c Pt reported weight goal: pt is satisfied with current weight Diet history: obtained and reviewed Breakfast: [facility] granola bar sweet and salty for breakfast Lunch: another granola bar or skips, will eat lunch at work on occasion. Very hearty lunches 3-4 meals/ month. Dinner: protein (typically beef, not a lot of fish, chicken often), baked beans, green beans, always a vegetable of some sort. Does not eat fruit often. Not a big bread eater, potatoes often, pasta, rice not often. Cheese with meals sometimes. Snack: 3 nights a week will have something sweet. Beverages: Coffee 3-4 cups/day - black, Water 80+ oz/day Other: 2 cans of diet soda/ day, apple juice in the morning with medicine ETOH: does not consume Dining Out: 3-4 meals/ week- wendys, star ansari, protein and starch with sit down restaurants, favors fried foods, will get appetizers, no dessert. 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 No Eating less than 75% of usual intake for more than 2 weeks? No Learning Readiness: Motivation to Learn: Interested - Wants to learn Family/Significant Other Support: Unable - Family not present Cognitive Ability: Alert and Oriented Patient learns best by: Multiple Methods Factors affecting learning: None Physical limitation affecting learning: None Educational materials provided: Fat and Fiber Facts to Lower Cholesterol and Snack Ideas Assessment: Body composition showing weight, skeletal muscle, percent body fat, waist circumference, waist to hip ratio, and visceral fat area all within ideal ranges. Weight History/Weight Change: pt reports weight has remained stable over the past 14 years. Food recall showing: Undesirably Exceeding Standard Recommendations for - red meat Meeting Standard Recommendations for - vegetables, nuts/seeds, beans/ lentils Below Standard Recommendations for - fish, fruit, whole grains Patient is interested in eating a more balanced diet. Nutrition Diagnosis: Behavioral-Environmental: Food and nutrition related knowledge deficit, related to, lack of prior exposure to information , as evidenced by client has no prior knowledge of need for food and nutrition - related information. Nutrition Monitoring AND Evaluation: Implement dietary recommendations to support your goals to improve the health value of your typical eating pattern and improve cholesterol levels. Nutrition Interventions: Comprehensive nutrition evaluation focused on health promotion. Plan Dietary Recommendations to Improve Cholesterol Limit high saturated fat foods such as cheese, butter, high fat meats/dairy, red and processed meats. Choose the lowest fat dairy that you can tolerate. Look for saturated fat content on the nutrition label below total fat. Replace animal fats with plant oils, avocado, nuts and seeds (be mindful of the serving size listed on the container due to calorie content). Keep in mind that coconut oil is a saturated fat. Any fat that is liquid at room temperature is unsaturated and good to use. Add soluble fiber to help reduce cholesterol - food sources include oats, barley, rama seeds, starchy beans such as black beans, most fruits, sweet potatoes, and cruciferous vegetables (broccoli/brussels sprouts). Maintain Body Composition: Follow executive health physician guidance regarding activity limitations. Gradually work toward exercise fredis (more content not included)... [facility] 10-12-2023 History of Present illness Narrative [facility] Nutrition Progress Note Hakan Duarte [id number] Assessment Physical Findings: Current Weight and Height: 84.4 kg (186 lb 1.6 oz) 182.9 cm (6') Body mass index is 25.24 kg/m . [place] BMI: 18.5-24.9 Percent body fat: 18.5 %, [place] body fat percentage is 10-20% for male. Weight corresponding to upper limit of normal body fat% range: 20%: 189.6 lbs Waist Circumference: 34 inches (Recommended waist circumference: 36 inches or less) Hip Circumference: 40 inches Waist to hip ratio: 0.85 ([place] waist/hip ratio: Male: 0.9 or less.) Patient's activity is: Activities of Daily Living: Sedentary (Desk job, seated for most of the day) Additional Activity: Very active (Intense exercise 6-7 days a week) Running 5-7x/ week Bodyweight exercises 3x/ week Patient's symptoms are: elevated total and LDL-c Pt reported weight goal: pt is satisfied with current weight Diet history: obtained and reviewed Breakfast: [facility] granola bar sweet and salty for breakfast Lunch: another granola bar or skips, will eat lunch at work on occasion. Very hearty lunches 3-4 meals/ month. Dinner: protein (typically beef, not a lot of fish, chicken often), baked beans, green beans, always a vegetable of some sort. Does not eat fruit often. Not a big bread eater, potatoes often, pasta, rice not often. Cheese with meals sometimes. Snack: 3 nights a week will have something sweet. Beverages: Coffee 3-4 cups/day - black, Water 80+ oz/day Other: 2 cans of diet soda/ day, apple juice in the morning with medicine ETOH: does not consume Dining Out: 3-4 meals/ week- star ortiz, protein and starch with sit down restaurants, favors fried foods, will get appetizers, no dessert. 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 No Eating less than 75% of usual intake for more than 2 weeks? No Learning Readiness: Motivation to Learn: Interested - Wants to learn Family/Significant Other Support: Unable - Family not present Cognitive Ability: Alert and Oriented Patient learns best by: Multiple Methods Factors affecting learning: None Physical limitation affecting learning: None Educational materials provided: Fat and Fiber Facts to Lower Cholesterol and Snack Ideas Assessment: Body composition showing weight, skeletal muscle, percent body fat, waist circumference, waist to hip ratio, and visceral fat area all within ideal ranges. Weight History/Weight Change: pt reports weight has remained stable over the past 14 years. Food recall showing: Undesirably Exceeding Standard Recommendations for - red meat Meeting Standard Recommendations for - vegetables, nuts/seeds, beans/ lentils Below Standard Recommendations for - fish, fruit, whole grains Patient is interested in eating a more balanced diet. Nutrition Diagnosis: Behavioral-Environmental: Food and nutrition related knowledge deficit, related to, lack of prior exposure to information , as evidenced by client has no prior knowledge of need for food and nutrition - related information. Nutrition Monitoring & Evaluation: Implement dietary recommendations to support your goals to improve the health value of your typical eating pattern and improve cholesterol levels. Nutrition Interventions: Comprehensive nutrition evaluation focused on health promotion. Plan Dietary Recommendations to Improve Cholesterol Limit high saturated fat foods such as cheese, butter, high fat meats/dairy, red and processed meats. Choose the lowest fat dairy that you can tolerate. Look for saturated fat content on the nutrition label below total fat. Replace animal fats with plant oils, avocado, nuts and seeds (be mindful of the serving size listed on the container due to calorie content). Keep in mind that coconut oil is a saturated fat. Any fat that is liquid at room temperature is unsaturated and good to use. Add soluble fiber to help reduce cholesterol - food sources include oats, barley, rama seeds, starchy beans such as black beans, most fruits, sweet potatoes, and cruciferous vegetables (broccoli/brussels sprouts). Maintain Body Composition: Follow executive health physician guidance regarding activity limitations. Gradually work toward exercise guidelines provided by exercise physiology. Strength training is essential to maintain muscle mass. Consume high protein foods (totaling 20-40 g protein) with each meal or at least 3 times per day to best maintain muscle mass. Consider eating more food throughout the day to prevent over-eating and snacking at night. Refer to the snack ideas handout provided in session. Try to find a granola bar that has at least 10g protein and 5g fiber. General Healthy Eating: Eat a variety of foods from all food groups including a variety of colors. Different colors provide you with different nutrients and antioxidants. Aim for 1/2 plate of vegetables, 1/4 plate of high fiber carb (whole grains, fruits, peas/corn, etc.), and 1/4 plate of lean protein foods (low fat meat, fish, low fat dairy, starchy beans, tofu/edamame, etc.). Include a serving of fruit with meals or snacks at least twice per day. Eat at least 3 times throughout the day including at least 3 food groups at each meal, and at least 2 food groups at each snack. Aim to include a fruit and/or vegetable with every meal and snack. Aim for 3 servings of vegetables per day. A serving is 2 cups salad, 1/2 cup cooked vegetables, or 1 cup raw vegetables. Consider calcium-fortified almond, soy, or other plant-based milk paired with leafy green vegetables to better meet your calcium needs on days you do not consume 2 servings of dairy products (8oz low-fat milk, 8oz low-fat yogurt, or 1oz cheese is one serving). Choose fish twice per week, or plant-based omega-3s daily - rama seeds, ground flax seeds, and walnuts are all good plant-based sources. Limit red meat to 1-2 servings per week, and limit processed meats (stinson, deli meats, etc.) as much as is realistic for optimal health. Choose the leanest meat possible if having red mere more often. Incorporate some starchy beans (black beans, meza beans, lentils, etc.) to increase soluble fiber and reduce meat portions. This may help cholesterol. Aim for at least 1/2 cup 3 times per week. Hydration: Do your best to drink at least 64oz fluid per day. Ensure you have water with you throughout the day. Consider pairing your water intake with other habits like during/ in-between meals and with/ after exercise. Criteria: lab values, body composition/weight, food recall, patient input Follow up: at next [facility] Referred/Supervised by: Preston/[facility] Consult Billing Type: body composition rate MNT: ea 15 minutes, 4 increments Signed by: Tanya Schwartz RD documented in this encounter [facility] 10-12-2023 History of Present illness Narrative Radiology Service Progress Note PATIENT NAME: Hakan Duarte DATE OF SERVICE: October 12, 2023 TIME: 1:31 PM PATIENT IDENTITY VERIFICATION COMPLETED USING TWO (2) IDENTIFIERS: Name and Date of confirmed by patient verbally and Name and Date of confirmed by identification band. FALL SCREENING: Has the patient had 2 falls in the last year or 1 fall with injury or currently using an Ambulatory Assistive Device (Walker, Cane, Wheelchair, Crutches, etc.)? No PATIENT GENDER DATA: Male PATIENT RELEVANT IMPLANT DATA REVIEWED: Yes PATIENT PRESENTS WITH AN IMPLANTABLE OR ATTACHED GENERAL CARGO CLERK: No RADIOLOGY DEPARTMENT: CT; Exam(s) Completed: Cardiac PERIPHERAL IV DATA: Not applicable SIGNED BY: RT Yelena(Marvin) October 12, 2023 1:31 PM documented in this encounter [facility] 10-12-2023 Note HNO ID: [id number] Author: OSMIN NGUYEN RT(R) Service: Radiology Author Type: Technologist Type: Progress Notes Filed: 10/12/2023 13:36 Note Text: Radiology Service Progress Note PATIENT NAME: Hakan Duarte DATE OF SERVICE: October 12, 2023 TIME: 1:31 PM PATIENT IDENTITY VERIFICATION COMPLETED USING TWO (2) IDENTIFIERS: Name and Date of confirmed by patient verbally and Name and Date of confirmed by identification band. FALL SCREENING: Has the patient had 2 falls in the last year or 1 fall with injury or currently using an Ambulatory Assistive Device (Walker, Cane, Wheelchair, Crutches, etc.)? No PATIENT GENDER DATA: Male PATIENT RELEVANT IMPLANT DATA REVIEWED: Yes PATIENT PRESENTS WITH AN IMPLANTABLE OR ATTACHED GENERAL CARGO CLERK: No RADIOLOGY DEPARTMENT: CT; Exam(s) Completed: Cardiac PERIPHERAL IV DATA: Not applicable SIGNED BY: LAI Kirk) October 12, 2023 1:31 PM [facility] 10-12-2023 History of Present illness Narrative New Patient CC: FBSE HPI: Hakan Duarte is a 47 year old male who presents for a full body skin check. Lesion #1 Location Back, face, right shoulder Duration years Growth Yes- says they are but patient cannot see Bleeding no Pain no Color change no Trauma no PMH: Personal hx of Actinic Keratoses (field treatment)?No Personal hx of atypical nevus : no Personal hx of NMSC? No Personal hx of melanoma? No Personal hx of transplant/immunosuppression: No FMH: Hx of melanoma? No Social: Occupation: Sales Sunscreen use: Sometimes Blistering sunburn history: childhood Tanning bed use:No Smoking: No Medications: fluoxetine 20 mg ORAL capsule Take 1 capsule by mouth once daily. ibuprofen 800 mg ORAL tablet Take one(1) tablet every eight(8) hours with food as needed for pain. Pseudoephedrine-Guaifenesin 120-1,200 mg ORAL Tb12 Take one (1) tablet every twelve (12) hours as directed for sinus cogestion omeprazole(PRILOSEC 40 MG CAP) Take one(1) capsule daily. PE: General: Well appearing male in NAD Neuro: Alert, pleasant, cooperative Blanco Type: II Skin exam performed including face, scalp, neck, chest, abdomen, back, arms, hands including nails, legs, and feet. All are wnl except with the following findings: - right clavicle with waxy peralta stuck on papule - several brown and black stuck-on papules on the back - right zygomatic cheek with atrophic white scar with rim of erythema - acneiform papules on the chin and chest Impression/Plan: Irritated seborrheic keratoses 2 lesions treated with cryotherapy Liquid nitrogen was applied for 10-12 seconds to the lesion(s) and the expected blistering or scabbing reaction explained. Return if lesion(s) fail to fully resolve. 2. Acne with acne scar - continue to monitor The lesion on the right cheek does not have clinical or dermoscopic features concerning for skin cancer, advised to monitor for bleeding or growth -Sunscreen (SPF 30 or higher) and sun protection reviewed. The ABCDEs of melanoma were reviewed with the patient and the importance of monthly self-examination of moles was emphasized. Should any moles change in color, itch, bleed, or burn, patient will contact the office for evaluation sooner than their interval appointment. Return to clinic prn for full skin exam or sooner if needed for any new/changing lesions. Valencia Gordon MD documented in this encounter [facility] 10-12-2023 Note HNO ID: [id number] Author: VALENCIA GORDON MD Service: ? Author Type: Physician Type: Progress Notes Filed: 10/12/2023 18:34 Note Text: New Patient CC: FBSE HPI: Hakan Duarte is a 47 year old male who presents for a full body skin check. Lesion #1 Location Back, face, right shoulder Duration years Growth Yes- says they are but patient cannot see Bleeding no Pain no Color change no Trauma no PMH: Personal hx of Actinic Keratoses (field treatment)?No Personal hx of atypical nevus : no Personal hx of NMSC? No Personal hx of melanoma? No Personal hx of transplant/immunosuppression: No FMH: Hx of melanoma? No Social: Occupation: Sales Sunscreen use: Sometimes Blistering sunburn history: childhood Tanning bed use:No Smoking: No Medications: fluoxetine 20 mg ORAL capsule Take 1 capsule by mouth once daily. ibuprofen 800 mg ORAL tablet Take one(1) tablet every eight(8) hours with food as needed for pain. Pseudoephedrine-Guaifenesin 120-1,200 mg ORAL Tb12 Take one (1) tablet every twelve (12) hours as directed for sinus cogestion omeprazole(PRILOSEC 40 MG CAP) Take one(1) capsule daily. PE: General: Well appearing male in NAD Neuro: Alert, pleasant, cooperative Blanco Type: II Skin exam performed including face, scalp, neck, chest, abdomen, back, arms, hands including nails, legs, and feet. All are wnl except with the following findings: - right clavicle with waxy peralta stuck on papule - several brown and black stuck-on papules on the back - right zygomatic cheek with atrophic white scar with rim of erythema - acneiform papules on the chin and chest Impression/Plan: Irritated seborrheic keratoses 2 lesions treated with cryotherapy Liquid nitrogen was applied for 10-12 seconds to the lesion(s) and the expected blistering or scabbing reaction explained. Return if lesion(s) fail to fully resolve. 2. Acne with acne scar - continue to monitor The lesion on the right cheek does not have clinical or dermoscopic features concerning for skin cancer, advised to monitor for bleeding or growth -Sunscreen (SPF 30 or higher) and sun protection reviewed. The ABCDEs of melanoma were reviewed with the patient and the importance of monthly self-examination of moles was emphasized. Should any moles change in color, itch, bleed, or burn, patient will contact the office for evaluation sooner than their interval appointment. Return to clinic prn for full skin exam or sooner if needed for any new/changing lesions. Valencia Gordon MD [facility] 10-12-2023 Instructions Rebekah Johnston MD - 10/12/2023 9:04 AM EDT Images from the original note were not included. Bowel Preparation Instructions for: Golytely, Nulytely, Trilyte or Colyte (polyethylene glycol 3350 and electrolytes) IF YOU DO NOT FOLLOW THESE DIRECTIONS, YOUR COLONOSCOPY WILL BE CANCELLED. Marquez Instructions: Your bowel must be empty so that your doctor can clearly view your colon. Follow all of the instructions in this handout EXACTLY as they are written. Do NOT eat any solid food the ENTIRE day before your colonoscopy. Drink only clear liquids. Buy your bowel preparation at least 5 days before your colonoscopy. TRANSPORTATION on the Day of Your Exam A responsible person MUST be present with you at Check In prior to your colonoscopy and REMAIN in the endoscopy area until you are discharged. You are NOT ALLOWED to drive, take a taxi or bus, or leave the Endoscopy Center ALONE. If you do not have a responsible electric lift truck driver (family member or friend) with you to take you home, your exam cannot be done with sedation and will be cancelled. Please bring a list of all of your current medications, including any Over-the Counter medications with you. Medications If you take insulin, diabetic medications or blood thinners such as Coumadin (warfarin), Plavix (clopidogrel), Ticlid (ticlopidine hydrochloride), Agrylin (anagrelide), Xarelto (Rivaroxaban), Pradaxa (Dabigatran), Eliquis (Apixaban), and Effient (Prasugrel). You MUST call the doctors who orders those medicines for instructions on altering the dosage before your colonoscopy. All other medications should be taken the day of the exam with a sip of water including ASPIRIN. Five (5) Days Before Your Colonoscopy Do NOT take medicines that stop diarrhea - such as Imodium, Kaopectate, or Pepto Bismol. Do NOT take fiber supplements - such as Metamucil, Citrucel, or Perdiem. Do NOT take products that contain iron - such as multi-vitamins (the label lists what is in the products). Do NOT take Vitamin E. Buy the prescription bowel preparation solution at your local pharmacy or drugstore pharmacy. 1 05/2019 Bowel Preparation Instructions for: Golytely, Nulytely, Trilyte or Colyte (polyethylene glycol 3350 and electrolytes) Three (3) Days Before Your Colonoscopy Do NOT eat high-fiber foods - such as popcorn, beans, seeds (flax, sunflower, quinoa), multigrain bread, nuts, salad/vegetables, or fresh and dried fruit. One (1) Day Before Your Colonoscopy Only drink clear liquids the ENTIRE DAY before your colonoscopy. Do NOT eat any solid foods. Drink at least 8 ounces of clear liquids every hour after waking up. The clear liquids you can drink include: Clear Liquid (NO RED LIQUIDS) DO NOT DRINK Gatorade, Pedialyte or Powerade Clear broth or bouillon Coffee or tea (no milk or non-dairy creamer) Carbonated and non-carbonated soft drinks Antione-Aid or other fruit flavored drinks Strained fruit juices (no pulp) Jell-O, popsicles, hard candy Water Alcohol Milk or non-dairy creamers Noodles or vegetables in soup Juice with pulp Liquid you cannot see through Do not use tobacco/vaping products The bowel preparation solution will be consumed in two parts. Mix the solution the evening before your colonoscopy and refrigerate before drinking. You may add the flavor pack that came with the bowel preparation. Do NOT add ice, sugar or any other flavorings to the solution. Part 1 At 6:00 PM - Evening before your colonoscopy Drink an 8-oz glass of bowel preparation every 10 minutes for a total of 8 glasses. You may continue to drink clear liquids until midnight. Part 2 On the day of your colonoscopy you may drink clear liquids up to (three) 3 hours before your procedure. 4 1/2 hours before your colonoscopy Drink an 8-oz glass of bowel preparation every 10 minutes for a total of 8 glasses. Fifteen (15) minutes later, drink an 8-oz glass of clear liquids every 15 minutes for a total of 2 glasses. You may continue to drink clear liquids up to (three) 3 hours before your exam. 2 05/2019 documented in this encounter [facility] 10-12-2023 History of Present illness Narrative PRESENT COMPLAINTS: Mr. Hakna Duarte is a 47 year old man who presents for comprehensive medical examination and assessment. PRESENT MEDICATIONS: PRILOSEC OTC 20 mg tablet: 1 daily Fluoxetine HCl 20 mg tablet: 1 daily Take 1 tablet by mouth once daily. C Performance and Vitality Multipack: 1 daily GOLYTELY: prep for colonoscopy MEDICATION ALLERGIES: Celebrex (Celecoxib):Rash PAST MEDICAL HISTORY: Esophageal Reflux/GERD Sterilization Alcoholism in Recovery in patient rehab 10/03/2023 Panic Disorder Without Agoraphobia - 2009 [facility] Recurrent Disease PAST SURGICAL AND PROCEDURAL HISTORY: [place] teeth extraction 2002 Vasectomy 08/16/2008 Laparoscopic repair of right Inguinal Hernia 08/16/2008 FAMILY MEDICAL HISTORY: Mother:1950 Rheumatoid Arthritis, Thyroid Father: 1951 Lipids, Diabetes, Alcohol abuse Brother:Arthur 1974 Alcohol abuse Brother::Ajith 1976 No Known Health Problems Maternal Grandmother:No known medical problems,no cause of identified. Maternal Grandfather: Sudden Cardiac , at age 72 Paternal Grandmother: Diabetes, at age 85 Paternal Grandfather: Colon Cancer, at age 75 Son: Richard 2005 Reactive airway Son: Zafar 2006 No Known Medical Problems SOCIAL HISTORY: Years Of Education Completed: 16 years Marital Status: to [place] with 2 children Tobacco Use: Never Alcohol Use: Not Currently (alcohol rehab 08/2023) Caffeine: 3 cups a day + 24 oz of diet soda Sleep: no problems without alcohol Wears Seat Belt and Bike Helmet Diet: trying to eat well and get adequate hydration, granola bar for breakfast, lunch granola bar, nuts, balanced dinner good water Exercise Most days running, strength training , and stretching Sleep thru out the night 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 Mild stress level at work reported. REVIEW OF SYSTEMS: GENERAL: Denies fever, chills, or night sweats. No significant changes in weight. Energy level is decent. DERMATOLOGIC: No new skin conditions or rashes. More and larger moles. EYES: No recent visual changes. Wears glasses/contacts. Last eye exam was fall 2023. ENT: No hearing loss or tinnitus. Last dental exam within past 6 months. No significant allergies or recurrent sinus infections. RESPIRATORY: No cough, dyspnea, or wheezing. CARDIOVASCULAR: No chest pain with exertion or at rest, palpitations, exertional pre-syncope, or edema. GASTROINTESTINAL: No persistent heartburn, abdominal cramping or pains, change in bowel habit, or rectal bleeding. GENITOURINARY: No problems with urinary stream, dysuria, frequency, urgency, incontinence, or erectile dysfunction. MUSCULOSKELETAL: No joint pains, swelling, or loss of range of motion. Has persistent back pain. NEURO: No frequent or severe headaches, vertigo, balance problems,memory problems, Denies weakness, numbness or tingling. PSYCHIATRIC: No sleeping problems or marital discord. History of anxiety. In the past 2 weeks have you: [place] down, depressed, or hopeless? NO Lost interest in your usual activities? NO HEMATOLOGIC/LYMPHATIC/IMMUNOLOGIC : No history of anemia. No unusual or unexplained bruising. No history of abnormal bleeding. ENDOCRINE: No cold intolerance, constipation, unexplained hair loss, or unexplained weight gain. No excessive thirst or excessive urination. PHYSICAL EXAM: Vital Signs: Blood pressure 128/78 mmHg, Pulse 61 Beats per minute Temperature 36.7 C (98 F), temperature source Temporal Artery, Height 182 cm (5' 11.65), Weight 85.7 kg (188 lb 15 oz). Body mass index is 25.87 kg/m . GENERAL: Well developed, well nourished. No acute distress. SKIN: Inspection of the skin is unremarkable. No suspicious lesions. HEAD: The cranial shape and structures are normal. EYES: The conjunctiva and eyelids are normal. Sclera normal. EOM s normal. EARS: External ear,auditory canals and tympanic membranes are normal. NOSE: The structures of the lower nose are normal. MOUTH: No abnormal lesions on the lips, tongue,oropharynx, buccal mucosa, or gums. NECK: The carotid pulses are normal and without bruits.No palpable lymph nodes. The thyroid is normal size without nodules. CHEST: Lungs clear to auscultation. No wheezes, rales or rhonchi. HEART: Regular rate and rhythm without murmur, gallop or rub. PERIPHERAL VASCULAR: Palpable distal pulses. No lower extremity edema. ABDOMEN: Soft, non-distended, non-tender with no hepatosplenomegaly or masses. GENITAL: Normal external genitalia, no penile lesions, no testicular masses RECTAL: non tender bilobar prostate BACK AND EXTREMITIES: Gait and station are normal. The digits and nails are unremarkable. No muscle atrophy or fasciculations. No deformities. NEUROLOGICAL: Cranial nerves 2-12 are grossly intact. No neurological deficits noted. MENTAL STATUS: Alert, oriented and appropriate. No signs of depression or anxiety. STUDIES: Complete Blood Count: Normal. Metabolic Profile: The chemistry profile is normal including tests for kidney function, liver function, and electrolytes. Fasting Blood Sugar (Glucose): Normal at 91 mg/dL (normal is below 100). Hemoglobin A1C (indicator of 12-week blood sugar average): Normal at 5.3%. 4.0-5.6% is within normal range,5.7-6.4% considered pre-diabetes where patients are at increased risk for development of diabetes. >6.4% is considered diabetic. Lipid Profile: Total cholesterol 204 mg/dL, LDL (bad) cholesterol high at 145 mg/dL, HDL (good) cholesterol low at 38 mg/dL, triglycerides normal at 107 mg/dL The National Cholesterol Education Program guidelines suggest an LDL less than 130, an HDL greater than 45 for men,and triglycerides less than 150. Other Cardiac Risk Indicators: Ultrasensitive C-Reactive Protein (us-CRP): Normal at 2.0 mg/L. us-CRP <1.0 is considered low relative risk for cardiovascular events, 1.0 to 3.0 is considered average risk, and > 3.0 is considered increased risk for cardiovascular events. Apolipoprotein B: Above normal at 128 mg/dL, consistent with the elevated LDL cholesterol. Normal is < 110, borderline risk is 111 - 127, and high risk is > 127. Lipoprotein (a): Nice and low at <6 mg/dL. Urinalysis: Normal. Urine Albumin/Creatinine Ratio (accurate test for urinary protein): Normal at <5 mg/g. Thyroid Function (TSH and free T4): Normal. PSA (Prostate Specific Antigen): Normal at 0.67 ng/mL Testosterone: Normal at 466 ng/dl Labs reflecting nutrient intake: Vitamin B12: Normal at 835 pg/mL. Ferritin: Normal at 266.0 ng/mL. This is a measure of your iron stores. Iron: Normal at 72 ug/dL. Uric acid: Normal at 6.6 mg/dL (lab normal range is 3.0 - 8.0, though desired level is below 6.5). Vitamin D: Excellent at 55.5 ng/mL. Normal range is 31-80 Screening viral titers done on all adults between the ages of 21 and 65: HIV: NEGATIVE ( preliminary screen was positive, this is not uncommon, which is why we reflex to a more specific test). This can be seen in women who have had many children, for no explainable reason, but can also occur if infected with HIV in < 12 weeks. Would recheck only if there are any concerns for exposure. Hepatitis C is negative. Hepatitis B Surface Antibody is negative, indicating no vaccination against Hep B. Percent Body Fat: 18.5 %. The desired range for men is 10-20%. Your abdominal waist circumference is 34 inches. An abdominal waist circumference of greater than 36 inches is now considered a risk factor for heart disease and diabetes. Your waist to hip ratio is 0.85. [place] waist to hip ratio for a man is 0.90 or less. Audiogram: Normal hearing in both ears. Spirometry/Pulmonary Function: Normal. Chest X-ray: Was normal 04/10/2009 Bone Mineral Density: Calcium CT score: 137 AU, this is the 96th%tile for age and gender ( O is the best, 100 is the worst) Note is also made of left atrial cavity dilation.Nodule in right upper lung and calcified granuloma in left lower lobe ( seen with prior infection). Vascular screening: Mild Plaque in right common carotid. No plaque in left carotid or aorta. NO aortic aneurysm, and good blood flow thru the legs to the feet. EKG: Sinus bradycardia at 55 beats per minute with unusual P axis, possible atrial bradycardia. Stress Test: NEGATIVE for ischemia at 10.5 METS and heart rate 90% of expected for age and gender. Functional capacity is between the 25th and the 50th percentile for age and gender. Note was made of atrial ectopic rhythm with lying down, not then standing. CONCLUSIONS: Comprehensive health evaluation with physical examination, laboratory data, radiographic imaging and cardiac testing. Recommend a healthy diet, including a calcium intake of approximately 1200 mg per day from food with supplementation as needed to achieve this goal and 1/2 of your body weight in ounces of non alcoholic,non caffeinated liquid/day Recommend > 150 minutes a week of exercise. Colorectal cancer screening with colonoscopy recommended and orders placed for COLONOSCOPY SCREENING and prep PEG 3350-ELECTROLYTES 236 GRAM-22.74 GRAM-6.74 GRAM-5.86 GRAM SOLUTION. Risks/benefits of prostate cancer screening discussed, and screening PSA normal. Ultrasound screening for AAA is negative. Agree with elimination of alcohol. - Patient was counseled [id number] by myself (the billing provider) for the following immunizations and vaccine components, including side effects: COVID-19, Hep B Vaccine, and TdaP. Patient consents for Tdap immunization and understands risks and benefits. A VIS sheet on each immunization was given to the patient.Need for vaccination - ICD9: V05.9, ICD10: B88QGIL VACCINE, (ADACEL) HEPATITIS B SURFACE ANTIBODY HCV screening test for low risk patient and screening for HIV without presence of risk factors are both negative. Abnormal finding on EKG - ICD9: 794.31, ICD10: R94.31 Multifocal ectopic atrial beats - ICD9: 427.61, ICD10: I49.1 This is an abnormality in the electrical system not the plumbing. Carotid artery plaque, right - ICD9: 433.10, ICD10: I65.21 Suggest dedicated carotid artery ultrasound at next executive exam ( 1-2 years) [place] coronary artery calcium score between 100 and 199 - ICD9: 793.2, ICD10: R93.1 This defines the presence of coronary artery disease, which changes goals for LDL to < 70 Mixed hyperlipidemia - ICD9: 272.2, ICD10: E78.2/ Dyslipidemia (high LDL; low HDL) - ICD9: 272.4, ICD10: E78.5 New diagnosis - Start rosuvastatin (Crestor) 20 mg, rx enclosed - Referral to cardiology, for follow up of atrial arrhythmia when lying down, which shouldn't have anything to do with plaque in light of negative stress test. Continue healthy diet and regular exercise - Follow up in 3 months, sooner should any other issues arise. Cardiac risk assessment includes biochemical measures of lipids and inflammation, as well as testing of the electrical system with EKGs and looking at the coronary arteries with CT calcium scoring and assessment of cardiac function with stress testing. We can combine these test results to calculate the risk for a cardiac event in the coming decade using the RAMIREZ Risk Calculator. We use this to guide the use of medication to mitigate risk. Your RAMIREZ Risk Score is 9.83 % if we count your grandfather's sudden cardiac as + family history, usually we look at first degree relatives, mom,dad, siblings, children,and if we say no family history this is 7.21 For your convenience a downloadable version of the Executive Health program Reference Guide is now available on our website [email or web address]. RECOMMENDATIONS General health maintenance recommendations include a physical exam with primary care physician or executive health physician yearly. Colon cancer screening beginning at age 45 by colonoscopy and then every ten years with no findings and no family history, every five years with a first degree relative with colon cancer, or based on biopsy findings. Immunizations recommended include: Influenza (flu) vaccination yearly in the fall Tetanus vaccination ,Tdap, given today, every 10 years without incident, and after five years in the event of a deep puncture wound Pneumonia immunization begins at age 65, or earlier with risk factors such as asthma, diabetes, or immune compromise. Shingrix is given after age 50 to protect us from reactivation of the chicken pox virus we had as a child, known as shingles or herpes zoster. Covid 19: Original vaccination and boosters, followed by bivalent booster. Please visit the [facility] website: [email or web address] For wellness information on such topics as supplements, how to sleep better, stress management and weight reduction See letter for final recommendations based on pending results Rebekah Johnston MD documented in this encounter [facility] 10-12-2023 Note HNO ID: [id number] Author: REBEKAH JOHNSTON MD Service: ? Author Type: Physician Type: Progress Notes Filed: 10/25/2023 07:12 Note Text: PRESENT COMPLAINTS: Mr. Hakan Duarte is a 47 year old man who presents for comprehensive medical examination and assessment. PRESENT MEDICATIONS: PRILOSEC OTC 20 mg tablet: 1 daily Fluoxetine HCl 20 mg tablet: 1 daily Take 1 tablet by mouth once daily. C Performance and Vitality Multipack: 1 daily GOLYTELY: prep for colonoscopy MEDICATION ALLERGIES: Celebrex (Celecoxib):Rash PAST MEDICAL HISTORY: Esophageal Reflux/GERD Sterilization Alcoholism in Recovery in patient rehab 10/03/2023 Panic Disorder Without Agoraphobia - 2009 [facility] Recurrent Disease PAST SURGICAL AND PROCEDURAL HISTORY: [place] teeth extraction 2002 Vasectomy 08/16/2008 Laparoscopic repair of right Inguinal Hernia 08/16/2008 FAMILY MEDICAL HISTORY: Mother:1950 Rheumatoid Arthritis, Thyroid Father: 1951 Lipids, Diabetes, Alcohol abuse Brother:1974 Alcohol abuse Brother::Ajith 1976 No Known Health Problems Maternal Grandmother:No known medical problems,no cause of identified. Maternal Grandfather: Sudden Cardiac , at age 72 Paternal Grandmother: Diabetes, at age 85 Paternal Grandfather: Colon Cancer, at age 75 Son: Richard 2005 Reactive airway Son: Zafar 2006 No Known Medical Problems SOCIAL HISTORY: Years Of Education Completed: 16 years Marital Status: to [place] with 2 children Tobacco Use: Never Alcohol Use: Not Currently (alcohol rehab 08/2023) Caffeine: 3 cups a day + 24 oz of diet soda Sleep: no problems without alcohol Wears Seat Belt and Bike Helmet Diet: trying to eat well and get adequate hydration, granola bar for breakfast, lunch granola bar, nuts, balanced dinner good water Exercise Most days running, strength training , and stretching Sleep thru out the night OCCUPATIONAL HISTORY: [employer] @ [employer] Works 40-60 hours per week and travels 30 % of the time. Mild stress level at work reported. REVIEW OF SYSTEMS: GENERAL: Denies fever, chills, or night sweats. No significant changes in weight. Energy level is decent. DERMATOLOGIC: No new skin conditions or rashes. More and larger moles. EYES: No recent visual changes. Wears glasses/contacts. Last eye exam was fall 2023. ENT: No hearing loss or tinnitus. Last dental exam within past 6 months. No significant allergies or recurrent sinus infections. RESPIRATORY: No cough, dyspnea, or wheezing. CARDIOVASCULAR: No chest pain with exertion or at rest, palpitations, exertional pre-syncope, or edema. GASTROINTESTINAL: No persistent heartburn, abdominal cramping or pains, change in bowel habit, or rectal bleeding. GENITOURINARY: No problems with urinary stream, dysuria, frequency, urgency, incontinence, or erectile dysfunction. MUSCULOSKELETAL: No joint pains, swelling, or loss of range of motion. Has persistent back pain. NEURO: No frequent or severe headaches, vertigo, balance problems,memory problems, Denies weakness, numbness or tingling. PSYCHIATRIC: No sleeping problems or marital discord. History of anxiety. In the past 2 weeks have you: [place] down, depressed, or hopeless? NO Lost interest in your usual activities? NO HEMATOLOGIC/LYMPHATIC/IMMUNOLOGIC : No history of anemia. No unusual or unexplained bruising. No history of abnormal bleeding. ENDOCRINE: No cold intolerance, constipation, unexplained hair loss, or unexplained weight gain. No excessive thirst or excessive urination. PHYSICAL EXAM: Vital Signs: Blood pressure 128/78 mmHg, Pulse 61 Beats per minute Temperature 36.7 ?C (98 ?F), temperature source Temporal Artery, Height 182 cm (5' 11.65), Weight 85.7 kg (188 lb 15 oz). Body mass index is 25.87 kg/m?. GENERAL: Well developed, well nourished. No acute distress. SKIN: Inspection of the skin is unremarkable. No suspicious lesions. HEAD: The cranial shape and structures are normal. EYES: The conjunctiva and eyelids are normal. Sclera normal. EOM?s normal. EARS: External ear,auditory canals and tympanic membranes are normal. NOSE: The structures of the lower nose are normal. MOUTH: No abnormal lesions on the lips, tongue,oropharynx, buccal mucosa, or gums. NECK: The carotid pulses are normal and without bruits.No palpable lymph nodes. The thyroid is normal size without nodules. CHEST: Lungs clear to auscultation. No wheezes, rales or rhonchi. HEART: Regular rate and rhythm without murmur, gallop or rub. PERIPHERAL VASCULAR: Palpable distal pulses. No lower extremity edema. ABDOMEN: Soft, non-distended, non-tender with no hepatosplenomegaly or masses. GENITAL: Normal external genitalia, no penile lesions, no testicular masses RECTAL: non tender bilobar prostate BACK AND EXTREMITIES: Gait and station are normal. The digits and nails are unremarkable. No muscle atrophy or fascic (more content not included)... [facility] 10-12-2023 Nurse Note Pt. was identified by name and birthdate. Latex allergy: No Pend Hep C (needs completed once ages 18-79 years) ordered Pend HIV (needs completed once ages 13-64 years) ordered Medications will be reviewed by MD. Medication list reviewed by RN. Importance of a current medication list discussed with pt. Patient verbalizes good understanding. Date of last Colonoscopy: never Next Due: due now Immunizations Reviewed the following vaccines with patient. See also immunization section in Epic for vaccine history and vaccines patient received today. Td-n/a Tdap- given 10/12/23 per MD order Pneumococcal- (Pneumovax 23)-n/a Prevnar 13- n/a PCV 20-n/a Hepatitis A-n/a Hepatitis B-n/a Influenza-declined Shingrix-n/a Covid-19 - declined RSV- n/a See Immunization record in EPIC. Discussed with patient current recommendations from the CDC for routine adult immunizations. Questions answered. Pt. verbalizes understanding of information discussed. Gave VIS sheet earlier today and provided patient with [facility] Immunization System Document. Pt afebrile and allergies reviewed. Pt tolerated injection well. See immunization section in epic. VISUAL ACUITY Patient declines vision exam Date of Last Exam - Fall 2022 Spirometry: Explained spirometry procedure to pt. Questions answered. Pt. verbalizes good understanding of information discussed. Spirometry testing done. [facility] 10-12-2023 Nurse Note Pt. was identified by name and birthdate. Latex allergy: No Pend Hep C (needs completed once ages 18-79 years) ordered Pend HIV (needs completed once ages 13-64 years) ordered Medications will be reviewed by MD. Medication list reviewed by RN. Importance of a current medication list discussed with pt. Patient verbalizes good understanding. Date of last Colonoscopy: never Next Due: due now Immunizations Reviewed the following vaccines with patient. See also immunization section in [facility] for vaccine history and vaccines patient received today. Td-n/a Tdap- given 10/12/23 per MD order Pneumococcal- (Pneumovax 23)-n/a Prevnar 13- n/a PCV 20-n/a Hepatitis A-n/a Hepatitis B-n/a Influenza-declined Shingrix-n/a Covid-19 - declined RSV- n/a See Immunization record in EPIC. Discussed with patient current recommendations from the CDC for routine adult immunizations. Questions answered. Pt. verbalizes understanding of information discussed. Gave VIS sheet earlier today and provided patient with [facility] Immunization System Document. Pt afebrile and allergies reviewed. Pt tolerated injection well. See immunization section in epic. VISUAL ACUITY Patient declines vision exam Date of Last Exam - Fall 2022 Spirometry: Explained spirometry procedure to pt. Questions answered. Pt. verbalizes good understanding of information discussed. Spirometry testing done. documented in this encounter [facility] 10-12-2023 Note HNO ID: [id number] Author: SLOANE VALENTINE AUD Service: ? Author Type: Biochemical Development Engineer Type: Progress Notes Filed: 10/12/2023 07:22 Note Text: EXECUTIVE PHYSICAL: HEARING SUMMARY Referred by: Rebekah Johnston MD This patient was seen for puretone air conduction screening as part of a physical examination in [facility] A[facility]. A brief case history and puretone air conduction screening at 25 dB HL were obtained. COMMUNICATION FUNCTION SCREENIN. Have you previously been diagnosed with a hearing loss or currently utilize amplification? No 2. Does a hearing problem cause you to feel frustrated when talking to members of your family? No 3. Does a hearing problem cause you difficulty hearing/understanding co-workers, clients, or customers? No 4. Do you feel that any difficulty with your hearing limits or hampers your personal or social life? No HEARING SCREENING RESULTS: NOTE: Testing involved assessment of air conduction screening only completed at 25 dB HL. The results should not be considered a comprehensive diagnostic audiologic evaluation. 250 Hz 500 Hz 1000 Hz 2000 Hz 3000 Hz 4000 Hz 6000 Hz 8000 Hz RIGHT EAR Pass Pass Pass Pass Pass Pass Pass Pass LEFT EAR Pass Pass Pass Pass Refer Refer Pass Pass NOTE: PASS indicates a response at 25 dB HL, REFER indicates no response at 25 dB HL INTERPRETATION AND RECOMMENDATIONS: * Patient passed the hearing screening at majority of frequencies in both ears (at least 6/8 frequencies in both ears). Retest as medically indicated or sooner if a change in hearing is noted. * Use hearing protective devices when exposed to loud noise to promote hearing loss prevention. Faustina Chase, [facility] Clinical Biochemical Development Engineer [facility] 10-12-2023 History of Present illness Narrative EXECUTIVE PHYSICAL: HEARING SUMMARY Referred by: Rebekah Johnston MD This patient was seen for puretone air conduction screening as part of a physical examination in [facility]. A brief case history and puretone air conduction screening at 25 dB HL were obtained. COMMUNICATION FUNCTION SCREENIN. Have you previously been diagnosed with a hearing loss or currently utilize amplification? No 2. Does a hearing problem cause you to feel frustrated when talking to members of your family? No 3. Does a hearing problem cause you difficulty hearing/understanding co-workers, clients, or customers? No 4. Do you feel that any difficulty with your hearing limits or hampers your personal or social life? No HEARING SCREENING RESULTS: NOTE: Testing involved assessment of air conduction screening only completed at 25 dB HL. The results should not be considered a comprehensive diagnostic audiologic evaluation. 250 Hz 500 Hz 1000 Hz 2000 Hz 3000 Hz 4000 Hz 6000 Hz 8000 Hz RIGHT EAR Pass Pass Pass Pass Pass Pass Pass Pass LEFT EAR Pass Pass Pass Pass Refer Refer Pass Pass NOTE: PASS indicates a response at 25 dB HL, REFER indicates no response at 25 dB HL INTERPRETATION AND RECOMMENDATIONS: * Patient passed the hearing screening at majority of frequencies in both ears (at least 6/8 frequencies in both ears). Retest as medically indicated or sooner if a change in hearing is noted. * Use hearing protective devices when exposed to loud noise to promote hearing loss prevention. Faustina Chase, [facility] Clinical Biochemical Development Engineer documented in this encounter [facility] 10-06-2023 Telephone encounter Note Previsit call completed. confirmed. Reviewed department guidelines/changes with pt in regard to covid 19-pt verbalized understanding. Additional consults: Derm -scheduled already Q: will email Dr Johnston - [facility] and was discharged on October 02. He wanted you to know in case his lab works returns askew. [facility] 10-06-2023 Miscellaneous Notes Previsit call completed. confirmed. Reviewed department guidelines/changes with pt in regard to covid 19-pt verbalized understanding. Additional consults: Derm -scheduled already Q: will email Dr Johnston - patient checked himself into [facility] for alcohol abuse in August and was discharged on October 02. He wanted you to know in case his lab works returns askew. documented in this encounter [facility] 10-06-2023 Telephone encounter Note Attempted pre-visit call for [facility] physical on 10/11 . LVM for patient to call [facility] nurse line. [facility] 10-06-2023 Miscellaneous Notes Attempted pre-visit call for [facility] physical on 10/11 . LVM for patient to call [facility] nurse line. documented in this encounter [facility] 09-15-2023 Miscellaneous Notes Attempted pre-visit call for [facility] physical on 10/11 . LVM for patient to call [facility] nurse line. documented in this encounter [facility] Evaluation note No assessment inform ation available [facility] Work Phone: Evaluation note Diagnosis Encounter for hearing screening without abnormal findings- Primary [facility] Diagnosis Inflamed seborrheic keratosis- Primary Scar condition and fibrosis of skin Skin exam, screening for cancer Screening for malignant neoplasm of the skin [facility] Diagnosis Encounter for screening for cardiovascular disorders Screening for other and unspecified cardiovascular conditions [facility] Diagnosis Encounter for wellness examination in adult- Primary Encounter for HCV screening test for low risk patient Screening for HIV without presence of risk factors Special screening examination for other specified viral diseases Need for vaccination Need for prophylactic vaccination and inoculation against unspecified single disease Colon cancer screening Special screening for malignant neoplasms, colon Abnormal finding on EKG Nonspecific abnormal electrocardiogram (ECG) (EKG) Multifocal ectopic atrial beats Carotid artery plaque, right Agatston coronary artery calcium score between 100 and 199 Nonspecific (abnormal) findings on radiological and other examination of other intrathoracic organs Mixed hyperlipidemia Dyslipidemia (high LDL; low HDL) Other and unspecified hyperlipidemia 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 Pulmonary nodule seen on imaging study Solitary pulmonary nodule [facility] Diagnosis Hyperlipidemia, unspecified hyperlipidemia type- Primary Agatston coronary artery calcium score between 100 and 199 Nonspecific (abnormal) findings on radiological and other examination of other intrathoracic organs Dyslipidemia Other and unspecified hyperlipidemia [facility] Diagnosis Wellness examination- Primary documented in this encounter [facility] note* Diagnosis Abnormal finding on EKG Nonspecific abnormal electrocardiogram (ECG) (EKG) Multifocal ectopic atrial beats Agatston coronary artery calcium score between 100 and 199 Nonspecific (abnormal) findings on radiological and other examination of other intrathoracic organs Mixed hyperlipidemia Dyslipidemia (high LDL; low HDL) Other and unspecified hyperlipidemia [facility] Diagnosis Screening for colon cancer- Primary Special screening for malignant neoplasms, colon Colon cancer screening Special screening for malignant neoplasms, colon [facility] (narrative)* Outpatient Procedure (Routine) - Authorized Specialty Diagnoses / Procedures Referred By Contac t Referred To [facility] Diagnoses Hyperlipidemia, unspecified hyperlipidemia type Agatston coronary artery calcium score between 100 and 199 Dyslipidemia Procedures ECG COMPLETE ECG ROUTINE ECG W/LEAST 12 LDS W/I&R Isacc Maria MD [address] [place] [id number] [facility] [place] [address] Referral ID Status Reason Start Date Expiration Date Visits Requested Visits Authorized [id number] Authorized Auto-Generat ed Referral 10/28/2023 10/27/2024 1 1 [facility] Outpatient Procedure (Routine) - Closed Specialty Diagnoses / Procedures Referred By Contac t Referred To Contact [facility] Diagnoses Colon cancer screening Procedures COLONOSCOPY SCREENING COLONOSCOPY FLX DX W/COLLJ SPEC WHEN PFRMD Rebekah Johnston MD [address] [place] [address] [place] [phone] Referral ID Status Reason Start Date Expiration Date V isits Requested Visits Authorized [id number] Closed Auto-Generate d Referral 10/12/2023 10/11/2024 1 1 [facility] N[facility]* Outpatient Procedure (Routine) - Closed Specialty Diagnoses / Procedures Referred By Contac t Referred To Contact [facility] Diagnoses Colon cancer screening Procedures COLONOSCOPY SCREENING COLONOSCOPY FLX DX W/COLLJ SPEC WHEN PFRMD Rebekah Johnston MD [address] [place] [address] [place] [id number] Referral ID Status Reason Start Date Expiration Date V isits Requested Visits Authorized [id number] Closed Auto-Generate d Referral 10/12/2023 10/11/2024 1 1 [facility] Chief Complaint and Reason for Visit Chief Complaint EORDER Family History No Family History Records Found Relationship Condition Age at Onset Recorded Date/T tate Unknown Family History?No pertinent history Unkno wn October 03, 2013 7:13pm Advance Directives No Advanced Directives Records Found Advance Directive Response Recorded Date/ Time Advance Directives Yes October 03, 014 10:47pm Living Will Yes March 14 6 10:06am Power of Public Service Administrator Yes March 14 016 10:06am Summary Purpose Reason for Referral Specialty Diagnoses / Procedures Referred By Contac t Referred To Contact CT IMAGING Diagnoses Encounter for screening for cardiovascular disorders Procedures CT CALCIUM SCORING SELF PAY UNLISTED COMPUTED TOMOGRAPHY PROCEDURE Rebekah Johnston MD [address] [place] [address] Ct Imaging [facility] Referral ID Status Reason Start Date Expiration Date V isits Requested Visits Authorized [id number] Closed Auto-Generate d Referral 09/05/2023 10/04/2024 1 1 Specialty Diagnoses / Procedures Referred By Contac t Referred To Contact Cardiology Diagnoses Abnormal finding on EKG Multifocal ectopic atrial beats Agatston coronary artery calcium score between 100 and 199 Mixed hyperlipidemia Dyslipidemia (high LDL; low HDL) Procedures CONSULT TO CARDIOLOGY OFFICE/OUTPATIENT NEW HIGH MDM 60 MINUTES Rebekah Johnston MD [address] [place] [id number] [facility] [place] [id number] [place] [address] Referral ID Status Reason Start Date Expiration Date Visits Requested Visits Authorized [id number] Authorized PCP Requested Referral 10/25/2023 10/24/2024 1 1 Specialty Diagnoses / Procedures Referred By Contac t Referred To Contact [facility] Diagnoses Colon cancer screening Procedures COLONOSCOPY SCREENING COLONOSCOPY FLX DX W/COLLJ SPEC WHEN PFRMD Rebekah Johnston MD [address] [place] [id number] [facility] [place] [address] [place] [address] Referral ID Status Reason Start Date Expiration Date Visits Requested Visits Authorized [id number] Pending Review Auto-Generat ed Referral 10/12/2023 10/11/2024 1 1 Specialty Diagnoses / Procedures Referred By Contac t Referred To [facility] Diagnoses Agatston coronary artery calcium score between 100 and 199 Procedures CARDIOVASCULAR MEDICINE OP FOLLOW UP APPT ORDER Isacc Maria MD [address] [address] [facility] [place] [address] [place] [address] Referral ID Status Reason Start Date Expiration Date Visits Requested Visits Authorized [id number] Ref Not Required PCP Requested Referral 12/02/2024 03/02/2025 1 1 Additional Source Comments Goals (unrecognized section and content) Goals may be documented in a n alternate section (unrecognized sect ion and content) No Status Records FoundNo Status Records FoundNo Status Records FoundNo Status Records FoundNo Status Records Found INFORMATION SOURCE (unrecogn ized section and content) DATE CREATED AUTHOR 09/05/2023 [facility] DATE CREATED AUTHOR AUTHOR'S ORGANIZ ATION 11/22/2023 [facility] DATE CREATED AUTHOR AUTHOR'S ORGANIZ ATION 03/11/2024 [facility] DATE CREATED AUTHOR AUTHOR'S ORGANIZ ATION 03/29/2024 [facility] DATE CREATED AUTHOR AUTHOR'S ORGANIZ ATION 11/29/2024 [facility] Source Comments (unrecognize d section and content) In the event this informatio n is protected by the Federal Confidentiality of Alcohol and Drug Abuse Patient Records regulations: The Federal rules restrict any use of the information to criminally investigate or prosecute any alcohol or drug abuse patient.[facility] the event this information is protected by the Federal Confidentiality of Alcohol and Drug Abuse Patient Records regulations: The Federal rules restrict any use of the information to criminally investigate or prosecute any alcohol or drug abuse patient.[facility] the event this information is protected by the Federal Confidentiality of Alcohol and Drug Abuse Patient Records regulations: The Federal rules restrict any use of the information to criminally investigate or prosecute any alcohol or drug abuse patient.[facility] the event this information is protected by the Federal Confidentiality of Alcohol and Drug Abuse Patient Records regulations: The Federal rules restrict any use of the information to criminally investigate or prosecute any alcohol or drug abuse patient.[facility] Center[facility] the event this information is protected by the Federal Confidentiality of Alcohol and Drug Abuse Patient Records regulations: The Federal rules restrict any use of the information to criminally investigate or prosecute any alcohol or drug abuse patient.[facility] CenterIn the event this information is protected by the Federal Confidentiality of Alcohol and Drug Abuse Patient Records regulations: The Federal rules restrict any use of the information to criminally investigate or prosecute any alcohol or drug abuse patient.[facility] CenterIn the event this information is protected by the Federal Confidentiality of Alcohol and Drug Abuse Patient Records regulations: The Federal rules restrict any use of the information to criminally investigate or prosecute any alcohol or drug abuse patient.[facility] Center[facility] the event this information is protected by the Federal Confidentiality of Alcohol and Drug Abuse Patient Records regulations: The Federal rules restrict any use of the information to criminally investigate or prosecute any alcohol or drug abuse patient.[facility] Center[facility] the event this information is protected by the Federal Confidentiality of Alcohol and Drug Abuse Patient Records regulations: The Federal rules restrict any use of the information to criminally investigate or prosecute any alcohol or drug abuse patient.[facility] CenterIn the event this information is protected by the Federal Confidentiality of Alcohol and Drug Abuse Patient Records regulations: The Federal rules restrict any use of the information to criminally investigate or prosecute any alcohol or drug abuse patient.[facility] Center[facility] the event this information is protected by the Federal Confidentiality of Alcohol and Drug Abuse Patient Records regulations: The Federal rules restrict any use of the information to criminally investigate or prosecute any alcohol or drug abuse patient.[facility] CenterIn the event this information is protected by the Federal Confidentiality of Alcohol and Drug Abuse Patient Records regulations: The Federal rules restrict any use of the information to criminally investigate or prosecute any alcohol or drug abuse patient.[facility] Reason for Visit (unrecogniz ed section and content) Reason Comments Nurse Triage Call On [facility] 10/11 Reason Comments Physical Reason Comments Nutrition Assessment Patient Education Reason Comments Full Body Skin Check Specialty Diagnoses / Procedures Referred By Contac t Referred To Contact CT IMAGING Diagnoses Encounter for screening for cardiovascular disorders Procedures CT CALCIUM SCORING SELF PAY UNLISTED COMPUTED TOMOGRAPHY PROCEDURE Rebekah Johnston MD [address] [place] [address] Ct Imaging [place] [id number] Referral ID Status Reason Start Date Expiration Date V isits Requested Visits Authorized [id number] Closed Auto-Generate d Referral 09/05/2023 10/04/2024 1 1 Reason Comments [facility] Physical Reason Comments Outpatient Colonoscopy Reason Comments CARD New Patient Consult Specialty Diagnoses / Procedures Referred By Contac t Referred To Contact Cardiology Diagnoses Abnormal finding on EKG Multifocal ectopic atrial beats Agatston coronary artery calcium score between 100 and 199 Mixed hyperlipidemia Dyslipidemia (high LDL; low HDL) Procedures CONSULT TO CARDIOLOGY OFFICE/OUTPATIENT NEW HIGH MDM 60 MINUTES Rebekah Johnston MD [address] [place] [id number] [facility] [address] [place] [address] Referral ID Status Reason Start Date Expiration Date V isits Requested Visits Authorized [id number] Closed PCP Requested Referral 10/25/2023 10/24/2024 1 1 FOR RECORDS PERTAINING TO PATIENTS WHO ARE OR HAVE BEEN ENROLLED IN A CHEMICAL DEPENDENCY/SUBSTANCEABUSE PROGRAM, SOME INFORMATION MAY BE OMITTED. This clinical summary was aggregated from multiple sources. Caution should be exercised in using it in the provision of clinical care. This summary normalizes information from multiple sources, and as a consequence, information in this document may materially change the coding, format and clinical context of patient data. In addition, data may be omitted in some cases. CLINICAL DECISIONS SHOULD BE BASED ON THE PRIMARY CLINICAL RECORDS. [facility]. provides no warranty or guarantee of the accuracy or completeness of information in this document.
[2024-11-30 11:12] LABS: CRP < 3.00 mg/L (0.0-3.0)
[2024-12-03 14:08] LABS: ANTINUCLEAR ANTIBODIES DIRECT Negative (Negative)
== END | disposition home or self-care (01) ==
LOC: MTLAB 08:00
PROVIDERS: PCP Family Medicine; Referring Provider Family Medicine; Visit Provider Family Medicine
DX: M46.1 Sacroiliitis, not elsewhere classified (principal)
CPT/HCPCS: 36415; 80053; 81374; 85025; 85652; 86038; 86140

== ENCOUNTER → 2024-12-19 | Outpatient (CLI) | payer OTHER, SELFPAY ==
--- NOTE | 2024-12-19 16:54 | CT_ITS ---
PROCEDURE: PELVIS WITHOUT IV CONTRAST 12/19/2024 REASON FOR EXAM: RHEUMATISM; sacroiliac joint pain, worse on the left. TECHNIQUE: CT of the pelvis without contrast. Multiplanar 2D reconstructions were performed. RADIATION DOSE SUMMARY: CTDlvol: 13.45 mGy DLP: 514.02 mGycm COMPARISON: Pelvis/hip radiographs 10/03/2024. FINDINGS: No acute fracture or dislocation. Bilateral hip joints are intact with without evidence for erosion or significant degenerative arthrosis. No pubic diastasis or erosive changes. Bilateral sacroiliac joints are intact. Mild degenerative arthritic changes with anterior and dorsal bridging osteophytosis of the right SI joint, and minimal spurring anteriorly on the left. There is subtle cortical erosive changes along the posterior inferior aspect of the left SI joint mainly involving the iliac articular surface compatible with sacroiliitis. No erosive changes are seen on the right. No acute or otherwise significant abnormality is seen within the pelvis. Normal appendix. No free fluid or air. Postoperative changes of prior right inguinal hernia repair with multiple surgical clips and probable mesh material. CT/Pelvis without IV Contrast IMPRESSION: Mild arthritic changes of the bilateral SI joints as described, with bridging o steophytosis on the right, and active erosive changes on the left compatible with sacroiliitis. Reading Location: [id number]
== END | disposition home or self-care (01) ==
LOC: CT 16:42
PROVIDERS: PCP Family Medicine; Referring Provider Family Medicine; Visit Provider Family Medicine
DX: M46.1 Sacroiliitis, not elsewhere classified (principal)
CPT/HCPCS: 72192